=== PATIENT | male | born 1960 ===

== ENCOUNTER 2016-11-21 08:24 | Day surgery (SDC) | payer MEDICAID ==
[2016-11-02 13:50] VITALS: BMI 31.3
[2016-11-21] MEDS ORDERED: ceFAZolin IV 1 gm in Dextrose 0 GM/0 ML BAG IVPB ONE (11:02)
[2016-11-21] MEDS ORDERED: Bupivacaine HCl 0.25% PF (10 ml) Inj ONE (11:02)
[2016-11-21] MEDS ORDERED: Lidocaine 1% Inj (20ml) ONE (11:02)
[2016-11-21] MEDS ORDERED: Lactated Ringer's 1,000 ML IV ONE ×2 (12:00→14:30)
[2016-11-21] MEDS ORDERED: Lidocaine Hydrochloride 5 ML INJ ONE (12:02)
[2016-11-21] MEDS ORDERED: Propofol 10 mg/ml Inj (20 ML) ONE (12:02)
[2016-11-21] MEDS ORDERED: Midazolam 2 MG/2 ML VIAL ONE (12:12)
[2016-11-21] MEDS ORDERED: ceFAZolin IV 1 gm in Dextrose 1 GM/50 ML BAG IVPB ONE (12:23)
[2016-11-21] MEDS ORDERED: Oxycodone/Acetaminophen 5/325 mg Tab PO PRN (12:43)
[2016-11-21] MEDS ORDERED: HYDROmorphone 0.5 mg/0.5 ml ISec IVP PRN (12:47)
[2016-11-21 14:49] VITALS: PULSE 63; RESP 18; O2SAT 98
[2016-11-21 15:36] VITALS: BP 125/66; TEMP 97.8
--- NOTE | 2016-11-22 00:10 | OP ---
PROCEDURE DATE: 11/21/2016 PREOPERATIVE DIAGNOSIS: Mass in the left leg. POSTOPERATIVE DIAGNOSIS: Mass in the left leg. PROCEDURE PERFORMED: Wide deep excision of deep soft tissue mass in the left leg with adjacent tissue transverse closure. SURGEON: Jose Miguel Corrales MD ANESTHESIA: General. ESTIMATED BLOOD LOSS: 30 mL. POSTOPERATIVE CONDITION: Stable. INDICATIONS FOR SURGERY: This is a 56-year-old male with chronic edema of the left leg who has developed a deep mass within the leg measuring 5 cm and now undergoing wide deep excision. DESCRIPTION OF PROCEDURE: The patient was taken to the operating room, IV sedation was administered and the left leg was prepped and draped. Local anesthesia was administered. A generous elliptical incision was made surrounding the mass, dissected free into the fascial layer and completely removed. Bleeding was controlled using a Bovie. Large blood vessel was repaired and wound was irrigated with saline. Generous tissue flaps were raised using the Bovie to greater than 30 sq cm. Adjacent tissue transverse closure was performed using multiple layers of Monocryl, subcuticular Monocryl, and skin clips. The patient tolerated the procedure well and returned to the recovery room in stable condition. Jose Miguel Corralse MD
== END 2016-11-21 15:00 | disposition home or self-care (01) ==
LOC: C.SDS 08:24
PROVIDERS: ATTEND Surgery
DX: R22.9 Localized swelling, mass and lump, unspecified (principal)
CPT/HCPCS: 14301; 88305; J0690; J1170; J1885; J2250; J2405; J2704; J2765; J3010; J7120

== ENCOUNTER 2017-03-09 13:38 | Emergency (ER) | payer MEDICAID ==
[2017-03-09 13:39] VITALS: BMI 31.3
[2017-03-09 13:47] VITALS: PULSE 78; TEMP 97.9; O2SAT 99
--- NOTE | 2017-03-09 14:23 | RAD ---
HISTORY: SOB, wheezing COMPARISON: 12/10/2014 FINDINGS: LUNGS: No active pulmonary disease. PLEURA: No significant pleural effusion identified, no pneumothorax apparent. CARDIOVASCULAR: Normal. OSSEOUS STRUCTURES: No significant abnormalities. VISUALIZED UPPER ABDOMEN: Normal. OTHER FINDINGS: None. IMPRESSION: No active disease.
[2017-03-09] MEDS ORDERED: Albuterol-Ipratrop 3 mg / 0.5 (3 ml) UD ONE (14:25)
[2017-03-09] MEDS: Albuterol-Ipratrop 3 mg / 0.5 (3 ml) UD IH SCH ×2 (14:25→14:50)
--- NOTE | 2017-03-09 16:10 | C.PDOC ---
History Of Present Illness 57 y/o male hx Asthma presents to the ED c/o wheezing and SOB after waking up this morning. The patient denies chest pain, fever, headaches, dizziness, vomiting, and diarrhea. Chief Complaint (Nursing): Shortness Of Breath Past Medical History Reviewed: Historical Data, Nursing Documentation, Vital Signs Vital Signs: Last Vital Signs Temp 97.9 F 03/09/17 13:45 Pulse 78 03/09/17 13:45 Resp 18 03/09/17 14:38 BP 98/79 L 03/09/17 13:45 Pulse Ox 99 03/09/17 16:21 - Medical History PMH: Asthma Denies: Chronic Kidney Disease Surgical History: No Surg Hx - [facility] Procedures DX ULTRASOUND-HEART (07/13/12) Family History: States: No Known Family Hx - Social History Hx Tobacco Use: Yes Hx Alcohol Use: No Hx Substance Use: No - Immunization History Hx Tetanus Toxoid Vaccination: Yes Hx Influenza Vaccination: No (2015) Hx Pneumococcal Vaccination: No Review Of Systems Except As Marked, All Systems Reviewed And Found Negative. Constitutional: Negative for: Fever, Chills Cardiovascular: Negative for: Chest Pain Respiratory: Positive for: Shortness of Breath, Wheezing. Negative for: Cough Gastrointestinal: Negative for: Nausea, Vomiting Skin: Negative for: Rash Physical Exam - Physical Exam Appears: Non-toxic, No Acute Distress Skin: Warm, Dry Head: Atraumatic, Normacephalic Eye(s): bilateral: Normal Inspection Oral Mucosa: Moist Neck: Normal ROM, Supple Chest: Symmetrical Cardiovascular: Rhythm Regular Respiratory: No Accessory Muscle Use, No Rales, No Rhonchi, Wheezing ( bilaterally significant ) Gastrointestinal/Abdominal: Soft, No Tenderness, No Guarding, No Rebound Back: Normal Inspection Extremity: Normal ROM, Capillary Refill (2<sec.) Neurological/Psych: Oriented x3, Normal Speech, Normal Cognition ED Course And Treatment ECG Rhythm: Sinus Rhythm (NSR with rate of 74bpm, LVH) O2 Sat by Pulse Oximetry: 99 (RA) Progress Note: Given: one Duoneb and 2 more after, and one Solumedrol 125mg IV. Chest X- ray was unremarkable. Upon reevaluation the patient is feeling better and no longer wheezes and is stable. The patient is advised to have a 1- 2 day follow up with his PMD for further evalutaion. Medical Decision Making Medical Decision Making: HISTORY: SOB, wheezing COMPARISON: 12/10/2014 FINDINGS: LUNGS: No active pulmonary disease. PLEURA: No significant pleural effusion identified, no pneumothorax apparent. CARDIOVASCULAR: Normal. OSSEOUS STRUCTURES: No significant abnormalities. VISUALIZED UPPER ABDOMEN: Normal. OTHER FINDINGS: None. IMPRESSION: No active disease. Disposition - Disposition Disposition: HOME/ ROUTINE Disposition Time: 16:36 Condition: STABLE Additional Instructions: Follow up within 1-2 days. Return to ED if feel worse. Prescriptions: Albuterol 0.083% [Albuterol Sulfate 3 Ml] 3 ml IH .Q4-6H #100 vial Nebulizer [Compact Compressor Nebulizer] 1 dev XX PRN PRN #1 dev PRN Reason: Wheezing Mask, Face [Nebulizer Aerosol Mask Adult] 1 dev XX PRN PRN #1 dev PRN Reason: Wheezing predniSONE [predniSONE Tab] 2 tab PO DAILY #8 tab Albuterol HFA [Ventolin HFA 90 mcg/actuation (8 g)] 1 puff IH .Q4-6H #1 inhaler Instructions: Asthma (ED) Forms: [facility] (Hungarian) - Clinical Impression Clinical Impression: Exacerbation of asthma - PA / DELICATESSEN DEPARTMENT MANAGER / Resident Statement MD/DO has examined the patient and agrees with the treatment plan. - Scribe Statement The provider has reviewed the documentation as recorded by the Scribe Nancy Jenkins
[2017-03-09 16:57] VITALS: BP 110/68; RESP 16
== END 2017-03-09 16:52 | disposition home or self-care (01) ==
LOC: C.ER 13:38
DX: J45.901 Unspecified asthma with (acute) exacerbation (principal); Z87.891 Personal history of nicotine dependence

== ENCOUNTER 2017-04-10 07:18 | Observation (INO) | payer MEDICAID ==
[2017-04-10 07:23] VITALS: BMI 37.5
[2017-04-10] MEDS ORDERED: Albuterol-Ipratrop 3 mg / 0.5 (3 ml) UD ONE ×3 (07:30→11:40)
[2017-04-10] MEDS ORDERED: Albuterol-Ipratrop 3 mg / 0.5 (3 ml) UD INH STA ×3 (07:46→08:59)
[2017-04-10 08:09] LABS: BASO % 0.5 % (0.0-2.0); EOS # 0.1 K/uL (0.0-0.7); EOS % 0.9 % (0.0-4.0); HEMOGLOBIN 13.4 g/dL (12.0-18.0); LYMPH # 2.1 K/uL (1.0-4.3); LYMPH % 26.1 % (20.0-40.0); MEAN CELL VOLUME 87.8 fL (80.0-94.0); MEAN CORPUSCULAR HEMOGLOBIN 30.3 pg (27.0-31.0); MEAN CORPUSCULAR HGB CONC 34.5 g/dL (33.0-37.0); MEAN PLATELET VOLUME 8.2 fL (7.2-11.7); MONO # 0.7 K/uL (0.0-0.8); MONO % 8.2 % (0.0-10.0); NEUT # 5.2 K/uL (1.8-7.0); NEUT % 64.3 % (50.0-75.0); NRBC % 0.1 % (0.0-2.0); RBC 4.42 Mil/uL (4.40-5.90); WHITE BLOOD COUNT 8.1 K/uL (4.8-10.8)
--- NOTE | 2017-04-10 08:10 | RAD ---
Chest x-ray single frontal view History: Shortness of breath. Comparison: 03/09/2017 Findings: Mild venous congestion. Right hilar prominence. Mild patchy increased markings at the left lung base. Tortuous aorta. Heart size within normal limits. Degenerative changes in the spine and shoulders. Impression: Mild venous congestion. Right hilar prominence. Mild patchy increased markings at the left lung base. Tortuous aorta.
[2017-04-10 08:23] LABS: ALB/GLOB RATIO 0.9 (1.0-2.1); ALBUMIN 3.9 g/dL (3.5-5.0); ALT/SGPT 26 U/L (21-72); AST/SGOT 23 U/L (17-59); BLOOD UREA NITROGEN 15 mg/dL (9-20); CALCIUM 8.5 mg/dl (8.6-10.4); GFR AFRICAN-AMERICAN > 60; GFR NON-AFRICAN AMERICAN > 60
[2017-04-10 08:34] LABS: B-TYPE NATRIURETIC PEPTIDE 245 pg/mL (0-900)
--- NOTE | 2017-04-10 09:26 | C.PDOC ---
History Of Present Illness 57 y/o male with history of Asthma, endocarditis and Hepatitis C presents to ED with complaints of sob and chest pain since last night. Chest pain is sharp in nature and midsternal. Aggravated by coughing. (+) subjective fever (+) sweating. Pt states he used albuterol treatments x5 at home with no improvement which prompted visit to ED. (+) smoker. Patient denies chills, leg swelling, abdominal pain, n/v or any other complaints at this time. No known sick contacts Time Seen by Provider: 04/10/17 07:27 Chief Complaint (Nursing): Shortness Of Breath History Per: Patient History/Exam Limitations: no limitations Onset/Duration Of Symptoms: Days Current Symptoms Are (Timing): Still Present Initiating Event: Upper Respiratory Illness Past Medical History Reviewed: Historical Data, Nursing Documentation, Vital Signs Vital Signs: Last Vital Signs Temp 99.5 F 04/10/17 07:23 Pulse 82 04/10/17 16:40 Resp 20 04/10/17 16:40 BP 131/53 L 04/10/17 16:40 Pulse Ox 96 04/10/17 16:59 - Medical History PMH: Asthma Surgical History: No Surg Hx - [facility] Procedures DX ULTRASOUND-HEART (07/13/12) Family History: States: No Known Family Hx - Social History Hx Tobacco Use: Yes Hx Alcohol Use: No Hx Substance Use: No - Immunization History Hx Tetanus Toxoid Vaccination: Yes Hx Influenza Vaccination: No (2016) Hx Pneumococcal Vaccination: No Review Of Systems Constitutional: Negative for: Fever, Chills Cardiovascular: Positive for: Chest Pain Respiratory: Positive for: Shortness of Breath Gastrointestinal: Negative for: Nausea, Vomiting Skin: Negative for: Rash Physical Exam - Physical Exam Appears: Non-toxic, No Acute Distress Skin: Warm, Dry, No Rash Head: Atraumatic, Normacephalic Eye(s): bilateral: Normal Inspection, EOMI Nose: Normal Oral Mucosa: Moist Neck: Normal ROM, Supple Chest: Symmetrical Cardiovascular: Rhythm Regular Respiratory: No Accessory Muscle Use, No Rales, No Rhonchi, Wheezing (Bilateral) Gastrointestinal/Abdominal: Soft, No Tenderness, No Guarding, No Rebound Extremity: No Pedal Edema, Capillary Refill (<2 seconds) Neurological/Psych: Oriented x3 ED Course And Treatment - Laboratory Results Result Diagrams: 04/10/17 08:05 04/10/17 08:05 ECG: Interpreted By Me, Viewed By Me ECG Rhythm: Sinus Rhythm Rate From EC (BPM) O2 Sat by Pulse Oximetry: 96 (RA) - Other Rad cxr X-Ray: Viewed By Me, Read By Radiologist Interpretation: Chest x-ray single frontal view. History: Shortness of breath. Comparison: 03/09/2017. Findings: Mild venous congestion. Right hilar prominence. Mild patchy increased markings at the left lung base. Tortuous aorta. Heart size within normal limits. Degenerative changes in the spine and shoulders. Impression: Mild venous congestion. Right hilar prominence. Mild patchy increased markings at the left lung base. Tortuous aorta. Progress Note: After x3 Neb treatment wheezing persisted, Patient will be admited under Services Disposition - Disposition Disposition: HOSPITALIZED Disposition Time: 15:00 Condition: STABLE - Clinical Impression Clinical Impression: Chest pain, Exacerbation of asthma - PA / BUTCHER HEAD / Resident Statement MD/DO has reviewed & agrees with the documentation as recorded. - Scribe Statement The provider has reviewed the documentation as recorded by the Scribjose alejandro Sparks All medical record entries made by the Bentonibjose alejandro were at my direction and personally dictated by me. I have reviewed the chart and agree that the record accurately reflects my personal performance of the history, physical exam, medical decision making, and the department course for this patient. I have also personally directed, reviewed, and agree with the discharge instructions and disposition.
[2017-04-10 09:30] VITALS: RESP 20
--- NOTE | 2017-04-10 10:54 | CP.PCM.HP ---
History of Present Illness - History of Present Illness History of Present Illness: PMD: Dr. Holden CC: short of breath HPI: 57 year old male with past medical history of asthma, left leg cellulitis, cirrhosis, hepatitis C who presents to the ED for shortness of breath. He states that is started yesterday at around 3pm while he was resting. He states he used his nebulizer treatment about 5x yesterday with short relief. He states what prompted him to come to the ED today was that today he had some chest tightness at around 5AM today. He states it is located in the middle of his chest and does not radiate. He states the pain is a 6/10 and nothing makes it better or worse. He states he also has a dry cough, feels sweaty, and has been congested and sneezing. He denies nausea, vomiting, diarrhea or constipation. Past Medical History: Asthma, left leg cellulitis, cirrhosis - diagnosed 2001, hepatitis C diagnosed 2001 Past Surgical History: Denies Family History: Mom - passed at 71yo due to diabetes, Dad passed at age 49 due to [place] Medications: Ventolin, Nebulizer Allergies: NKDA Social History: Lives with stepfather; incarcerated 1 year released 10/2016; Smokes about 6 cigerretes per day for 20 years; Denies drinking; Previously used heroin IV - currently has not used for about 19 months Present on Admission - Present on Admission Any Indicators Present on Admission: No Review of Systems - Constitutional Constitutional: absent: Headache - EENT Eyes: absent: Blurred Vision - Cardiovascular Cardiovascular: Chest Pain, Dyspnea, Lightheadedness. absent: Palpitations - Respiratory Respiratory: Cough, Dyspnea, Pain with Coughing - Gastrointestinal Gastrointestinal: absent: Constipation, Diarrhea, Nausea, Vomiting - Genitourinary Genitourinary: absent: Dysuria - Neurological Neurological: absent: Dizziness, Headaches, Weakness Past Patient History - Past Medical History & Family History Past Medical History?: Yes - Past Social History Smoking Status: Light Smoker < 10 Cigarettes Daily - CARDIAC Hx Cardiac Disorders: Yes (SEE COMMENT) Other/Comment: Endocarditis 2001 - PULMONARY Hx Asthma: Yes - NEUROLOGICAL Hx Neurological Disorder: No - HEENT Hx HEENT Problems: No - RENAL Hx Chronic Kidney Disease: No - ENDOCRINE/METABOLIC Hx Endocrine Disorders: No - HEMATOLOGICAL/ONCOLOGICAL Hx Blood Disorders: Yes Hx Hepatitis C: Yes (Finished Zepatier) - INTEGUMENTARY Hx Dermatological Problems: No - MUSCULOSKELETAL/RHEUMATOLOGICAL Hx Musculoskeletal Disorders: No - GASTROINTESTINAL Hx Gastrointestinal Disorders: No - GENITOURINARY/GYNECOLOGICAL Hx Genitourinary Disorders: No - PSYCHIATRIC Hx Substance Use: No - SURGICAL HISTORY Hx Surgeries: No - ANESTHESIA Hx Anesthesia: No Meds Allergies/Adverse Reactions: Allergies Allergy/AdvReac Type Severity Reaction Status Date / Time No Known Allergies Allergy Verified 04/10/17 07:22 Physical Exam - Constitutional Appears: No Acute Distress - Head Exam Head Exam: ATRAUMATIC, NORMAL INSPECTION - Eye Exam Eye Exam: EOMI, Normal appearance - ENT Exam ENT Exam: Mucous Membranes Moist - Respiratory Exam Respiratory Exam: Wheezes, NORMAL BREATHING PATTERN - Cardiovascular Exam Cardiovascular Exam: REGULAR RHYTHM, +S1, +S2 - GI/Abdominal Exam GI & Abdominal Exam: Normal Bowel Sounds, Soft. absent: Tenderness Additional comments: Obese - Extremities Exam Extremities exam: Positive for: pedal edema (left lower extremity ). Negative for: tenderness - Neurological Exam Neurological exam: Alert, Oriented x3 - Psychiatric Exam Psychiatric exam: Normal Affect, Normal Mood - Skin Skin Exam: Dry, Intact, Normal Color, Warm Results - Vital Signs Recent Vital Signs: Last Vital Signs Temp 99.5 F 04/10/17 07:23 Pulse 100 H 04/10/17 09:29 Resp 20 04/10/17 09:29 BP 117/44 L 04/10/17 09:29 Pulse Ox 96 04/10/17 10:47 - Labs Result Diagrams: 04/10/17 08:05 04/10/17 08:05 Labs: Laboratory Results - last 24 hr 04/10/17 04/10/17 08:05 08:05 WBC 8.1 RBC 4.42 Hgb 13.4 Hct 38.9 MCV 87.8 MCH 30.3 MCHC 34.5 RDW 13.0 Plt Count 197 MPV 8.2 Neut % (Auto) 64.3 Lymph % (Auto) 26.1 [place] % (Auto) 8.2 Eos % (Auto) 0.9 Baso % (Auto) 0.5 Neut # 5.2 Lymph # 2.1 [place] # 0.7 Eos # 0.1 Baso # 0.0 Sodium 135 Potassium 3.8 Chloride 103 Carbon Dioxide 25 Anion Gap 11 BUN 15 Creatinine 0.8 Est GFR ( Amer) > 60 Est GFR (Non-Af Amer) > 60 Random Glucose 107 Calcium 8.5 L Total Bilirubin 0.6 AST 23 ALT 26 Alkaline Phosphatase 77 Total Creatine Kinase 51 L CK-MB (Mass) 0.40 Troponin I 0.0180 NT-Pro-B Natriuret Pep 245 Total Protein 8.2 Albumin 3.9 Globulin 4.3 H Albumin/Globulin Ratio 0.9 L Assessment & Plan - Assessment and Plan (Free Text) Assessment: 1.) Asthma Exacerbation - Chest Xray: Mild venous congestion. Right hilar prominence. Mild patchy increased markings at the left lung base. Tortuous aorta. - Pulm consult: Dr. Pack --> help appreciated - Medications: * Duonebs q4h emeka * Sylvia-Medrol 10mg q8h * Advair * Rocephin 1gm q12h * Azithromycin 500mg po daily * Mucinex 2.) Chest pain - EKG: NSR - Troponin x2 negative - f/u trop 3.) History of Hepatitis C 4.) History of Cirrhosis 5.) History of Left Leg Cellulitis - venous doppler: Negative 6.) History of Heroin Use - Patient states he has been clean for 19 months - UDS Negative 7.) History of Tobacco Use - Discussed the importance of smoking cessation - Nicotine patch 8.) Prophylaxis - Pepcid 20mg po daily - Heparin SC - Ambulates Case Discussed with Dr. Jose Burgess PGY-1
[2017-04-10] MEDS: Albuterol-Ipratrop 3 mg / 0.5 (3 ml) UD INH SCH (12:36)
[2017-04-10] MEDS ORDERED: MethylPREDNISolone 40 mg Vial ONE (13:24)
[2017-04-10] MEDS: MethylPREDNISolone 40 mg Vial IVP SCH ×3 (13:29→21:04)
[2017-04-10] MEDS ORDERED: Azithromycin 500mg/250ML NS 500 MG/250 ML BAG IVPB SCH (13:30)
[2017-04-10] MEDS ORDERED: Piperacill/Tazo 3.375gm in Dex 3.375 GM/50 ML BAG IVPB SCH ×2 (13:30→14:15)
[2017-04-10] MEDS ORDERED: Piperacillin/Tazobact 3.375 GM in Sodium Chloride 0.9% 100 ML IVPB SCH (14:00)
[2017-04-10] MEDS ORDERED: Piperacillin/Tazobact 3.375 gm 100 ML IVPB SCH (14:00)
[2017-04-10] MEDS: guaiFENesin 600 mg ER Tab PO SCH ×2 (14:12→17:46)
[2017-04-10 15:12] LABS: BARBITURATES, UR NEGATIVE (NEGATIVE); BENZODIAZEPINES, UR NEGATIVE (NEGATIVE); OPIATES, UR NEGATIVE (NEGATIVE); PHENCYCLIDINE, UR NEGATIVE (NEGATIVE)
--- NOTE | 2017-04-10 15:21 | VASCLAB ---
PROCEDURE: Lower Extremity Venous Duplex Exam. HISTORY: hx of cellulitis, sob PRIORS: None. TECHNIQUE: Bilateral common femoral, femoral, popliteal and posterior tibial, peroneal and great saphenous veins were evaluated. Flow was assessed with color Doppler, compressibility, assessment of phasic flow and augmentation response. Report prepared by Anatoly Hughes, [place], RVT FINDINGS: RIGHT: 1. Common Femoral Vein: 1.1. Compressibility - Fully compressible: Thrombus - None : Flow - Phasic: Augmentation -Normal: Reflux - None. 2. Femoral Vein: 2.1. Compressibility - Fully compressible: Thrombus - None : Flow - Phasic: Augmentation -Normal: Reflux - None. 3. Popliteal Vein: 3.1. Compressibility - Fully compressible: Thrombus - None : Flow - Phasic: Augmentation -Normal: Reflux - None. 4. Posterior Tibial Vein: 4.1. Compressibility - Fully compressible: Thrombus - None: Flow - Phasic: Augmentation -Normal: Reflux - None. 5. Peroneal Vein: 5.1. Compressibility - Fully compressible: Thrombus - None: Flow - Phasic: Augmentation -Normal: Reflux - None. 6. Great Saphenous Vein: 6.1. Compressibility - Fully compressible: Thrombus - None: Flow - Phasic: Augmentation - Normal: Reflux - None. LEFT: 1. Common Femoral Vein: 1.1. Compressibility - Fully compressible: Thrombus - None: Flow - Phasic: Augmentation -Normal: Reflux - None. 2. Femoral Vein: 2.1. Compressibility - Fully compressible: Thrombus - None: Flow - Phasic: Augmentation -Normal: Reflux - None. 3. Popliteal Vein: 3.1. Compressibility - Fully compressible: Thrombus - None : Flow - Phasic: Augmentation -Normal: Reflux - None. 4. Posterior Tibial Vein: 4.1. Compressibility - Fully compressible: Thrombus - None: Flow - Phasic: Augmentation -Normal: Reflux - None. 5. Peroneal Vein: 5.1. Compressibility - Fully compressible: Thrombus - None: Flow - Phasic: Augmentation -Normal: Reflux - None. 6. Great Saphenous Vein: 6.1. Compressibility - Fully compressible: Thrombus - None: Flow - Phasic: Augmentation - Normal: Reflux - None. OTHER FINDINGS: Right: None significant. Left: None significant. IMPRESSION: Right: No evidence of deep or superficial vein thrombosis of the right lower extremity. Normal valve function noted of the right side. Left: No evidence of deep or superficial vein thrombosis of the left lower extremity. Normal valve function noted of the left side.
--- NOTE | 2017-04-10 17:27 | CP.PCM.CON ---
History of Present Illness - History of Present Illness History of Present Illness: 57 y/o Male PMHx of asthma, Hep C, and half pack a day smoker presents with one day history of shortness of breath and chest pain. Both started yesterday evening while he was laying in bed. The chest pain is described sharp and centrally located on his chest, and is worse with coughing and deep breathing. It is unchanged with body position and is non-exertional. He reports subjective fevers and cough but no chills, nausea or vomiting. The patient states that he administered 5 nebulizer treatments at home which helped his SOB but his chest pain persisted so he came to the hospital. Denies recent travel and sick contacts. Review of Systems - Review of Systems All systems: reviewed and no additional remarkable complaints except (shortness of breath, cough) Past Patient History - Past Medical History & Family History Past Medical History?: Yes - Past Social History Smoking Status: Light Smoker < 10 Cigarettes Daily - CARDIAC Hx Cardiac Disorders: Yes (SEE COMMENT) Other/Comment: Endocarditis 2002 - PULMONARY Hx Asthma: Yes - NEUROLOGICAL Hx Neurological Disorder: No - HEENT Hx HEENT Problems: No - RENAL Hx Chronic Kidney Disease: No - ENDOCRINE/METABOLIC Hx Endocrine Disorders: No - HEMATOLOGICAL/ONCOLOGICAL Hx Blood Disorders: Yes Hx Hepatitis C: Yes (Finished Zepatier) - INTEGUMENTARY Hx Dermatological Problems: No - MUSCULOSKELETAL/RHEUMATOLOGICAL Hx Musculoskeletal Disorders: No - GASTROINTESTINAL Hx Gastrointestinal Disorders: No - GENITOURINARY/GYNECOLOGICAL Hx Genitourinary Disorders: No - PSYCHIATRIC Hx Substance Use: No - SURGICAL HISTORY Hx Surgeries: No - ANESTHESIA Hx Anesthesia: No Meds Allergies/Adverse Reactions: Allergies Allergy/AdvReac Type Severity Reaction Status Date / Time No Known Allergies Allergy Verified 04/10/17 07:22 - Medications Medications: Current Medications Albuterol/Ipratropium (Duoneb 3 Mg/0.5 Mg (3 Ml) Ud) 3 ml INH RQ4 [facility] Last Admin: 04/10/17 12:36 Dose: 3 ml Azithromycin (Zithromax) 500 mg PO DAILY@1400 [facility] Last Admin: 04/10/17 14:13 Dose: 500 mg Famotidine (Pepcid) 20 mg PO DAILY [facility] Last Admin: 04/10/17 13:29 Dose: 20 mg Guaifenesin (Mucinex La) 600 mg PO BID [facility] Last Admin: 04/10/17 14:12 Dose: 600 mg Heparin Sodium (Porcine) (Heparin) 5,000 units SC Q8 [facility] Last Admin: 04/10/17 13:30 Dose: 5,000 units Piperacillin Sod/Tazobactam Sod (Zosyn 3.375 Gm Iv Premix) 3.375 gm in 50 mls @ 200 mls/hr IVPB Q6H [facility] Last Admin: 04/10/17 14:13 Dose: 200 mls/hr Methylprednisolone (Solu-Medrol) 40 mg IVP Q8 [facility] Last Admin: 04/10/17 14:12 Dose: Not Given Fluticasone/Salmeterol (Advair Diskus 500/50) 1 puff INH RQ12 [facility] Physical Exam - Head Exam Head Exam: ATRAUMATIC, NORMOCEPHALIC - Eye Exam Eye Exam: Normal appearance - ENT Exam ENT Exam: Mucous Membranes Moist - Neck Exam Neck exam: Positive for: Normal Inspection - Respiratory Exam Respiratory Exam: Rhonchi, Wheezes - Cardiovascular Exam Cardiovascular Exam: REGULAR RHYTHM - GI/Abdominal Exam GI & Abdominal Exam: Normal Bowel Sounds Results - Vital Signs Recent Vital Signs: Last Vital Signs Temp 99.5 F 04/10/17 07:23 Pulse 82 04/10/17 16:40 Resp 20 04/10/17 16:40 BP 131/53 L 04/10/17 16:40 Pulse Ox 96 04/10/17 16:59 - Labs Result Diagrams: 04/10/17 08:05 04/10/17 08:05 Labs: Laboratory Results - last 24 hr 04/10/17 04/10/17 04/10/17 08:05 08:05 14:39 WBC 8.1 RBC 4.42 Hgb 13.4 Hct 38.9 MCV 87.8 MCH 30.3 MCHC 34.5 RDW 13.0 Plt Count 197 MPV 8.2 Neut % (Auto) 64.3 Lymph % (Auto) 26.1 [place] % (Auto) 8.2 Eos % (Auto) 0.9 Baso % (Auto) 0.5 Neut # 5.2 Lymph # 2.1 [place] # 0.7 Eos # 0.1 Baso # 0.0 Sodium 135 Potassium 3.8 Chloride 103 Carbon Dioxide 25 Anion Gap 11 BUN 15 Creatinine 0.8 Est GFR ( Amer) > 60 Est GFR (Non-Af Amer) > 60 Random Glucose 107 Calcium 8.5 L Total Bilirubin 0.6 AST 23 ALT 26 Alkaline Phosphatase 77 Total Creatine Kinase 51 L CK-MB (Mass) 0.40 Troponin I 0.0180 NT-Pro-B Natriuret Pep 245 Total Protein 8.2 Albumin 3.9 Globulin 4.3 H Albumin/Globulin Ratio 0.9 L Urine Opiates Screen Negative Urine Methadone Screen Negative Ur Barbiturates Screen Negative Ur Phencyclidine Scrn Negative Ur Amphetamines Screen Negative U Benzodiazepines Scrn Negative U Oth Cocaine Metabols Negative U Cannabinoids Screen Negative 04/10/17 14:44 WBC RBC Hgb Hct MCV MCH MCHC RDW Plt Count MPV Neut % (Auto) Lymph % (Auto) [place] % (Auto) Eos % (Auto) Baso % (Auto) Neut # Lymph # [place] # Eos # Baso # Sodium Potassium Chloride Carbon Dioxide Anion Gap BUN Creatinine Est GFR ( Amer) Est GFR (Non-Af Amer) Random Glucose Calcium Total Bilirubin AST ALT Alkaline Phosphatase Total Creatine Kinase CK-MB (Mass) Troponin I < 0.0120 NT-Pro-B Natriuret Pep Total Protein Albumin Globulin Albumin/Globulin Ratio Urine Opiates Screen Urine Methadone Screen Ur Barbiturates Screen Ur Phencyclidine Scrn Ur Amphetamines Screen U Benzodiazepines Scrn U Oth Cocaine Metabols U Cannabinoids Screen Assessment & Plan (1) Dyspnea Status: Acute Comment: most likely secondary to asthma exacerbation/COPD. Rule out pulmonary emboli because of hypoxemia. Continue nebulizer treatm. IV steroids and antibiotics
[2017-04-10] MEDS ORDERED: Iodixanol 320 MG/ML 100 ML BOTTLE IV ONE (17:56)
[2017-04-10 18:59] LABS: ARTERIAL BLOOD GAS HCO3 21.7 mmol/L (21-28); ARTERIAL BLOOD GAS HEMOGLOBIN 12.8 g/dL (11.7-17.4); ARTERIAL BLOOD GAS O2 SAT 96.5 % (95-98); ARTERIAL BLOOD GAS PCO2 31 mm/Hg (35-45); ARTERIAL BLOOD GAS PH 7.41 (7.35-7.45); ARTERIAL BLOOD GAS PO2 75 mm/Hg (80-100); ARTERIAL BLOOD GAS TCO2 20.6 mmol/L (22-28)
--- NOTE | 2017-04-10 19:30 | CT ---
EXAM: CT Angiography Chest With Intravenous Contrast CLINICAL HISTORY: 57 years old, male; Signs and symptoms; Other: Hypoxia. TECHNIQUE: Axial computed tomographic angiography images of the chest with intravenous contrast using pulmonary embolism protocol. All CT scans at this facility use one or more dose reduction techniques, viz.: automated exposure control; ma/kV adjustment per patient size (including targeted exams where dose is matched to indication; i.e. head); or iterative reconstruction technique. MIP reconstructed images were created and reviewed. Coronal and sagittal reformatted images were created and reviewed. CONTRAST: 100 mL of VISIPAQUE 320 administered intravenously. COMPARISON: No relevant prior studies available. FINDINGS: Limitations: Suboptimal timing of bolus. Pulmonary arteries: No definite pulmonary embolism. Aorta: No aneurysm. No dissection. Lungs: Minimal atelectasis. No consolidation. Pleural space: No significant effusion. No pneumothorax. Heart: No cardiomegaly. No significant pericardial effusion. Bones/joints: Mild degenerative changes of spine. No acute fracture. Soft tissues: Minimal gynecomastia. Lymph nodes: No pathologically enlarged lymph nodes. Gallbladder and bile ducts: Gallstones. Kidneys and ureters: Too small to characterize lesion within RIGHT kidney. Stomach and bowel: Mild to moderately dilated loops of small bowel within upper abdomen. IMPRESSION: 1. No definite CT evidence of pulmonary embolism. 2. Small bowel dilatation, nonspecific. 3. Incidental/non-acute findings are described above.
[2017-04-10] MEDS ORDERED: Fluticasone-Salmeterol 500-50mcg Diskus INH SCH (20:00)
[2017-04-11] MEDS: Albuterol-Ipratrop 3 mg / 0.5 (3 ml) UD INH SCH ×4 (00:31→11:12)
[2017-04-11] MEDS: MethylPREDNISolone 40 mg Vial IVP SCH ×2 (06:10→14:16)
--- NOTE | 2017-04-11 07:15 | CP.PCM.PN ---
Subjective - Date & Time of Evaluation Date of Evaluation: 04/11/17 Time of Evaluation: 07:14 Objective - Vital Signs/Intake and Output Vital Signs (last 24 hours): Temp Pulse Resp BP Pulse Ox 97.7 F 84 20 165/74 H 99 04/10/17 23:50 04/10/17 23:50 04/10/17 23:50 04/10/17 23:50 04/10/17 23:50 - Medications Medications: Current Medications Albuterol/Ipratropium (Duoneb 3 Mg/0.5 Mg (3 Ml) Ud) 3 ml INH RQ4 [facility] Last Admin: 04/11/17 03:14 Dose: Not Given Azithromycin (Zithromax) 500 mg PO DAILY@1400 [facility] Last Admin: 04/10/17 14:13 Dose: 500 mg Famotidine (Pepcid) 20 mg PO DAILY [facility] Last Admin: 04/10/17 13:29 Dose: 20 mg Guaifenesin (Mucinex La) 600 mg PO BID [facility] Last Admin: 04/10/17 17:46 Dose: 600 mg Heparin Sodium (Porcine) (Heparin) 5,000 units SC Q8 [facility] Last Admin: 04/11/17 06:10 Dose: 5,000 units Ceftriaxone Sodium 1 gm/ (Sodium Chloride) 100 mls @ 100 mls/hr IVPB Q12H [facility] Last Admin: 04/11/17 07:08 Dose: 100 mls/hr Methylprednisolone (Solu-Medrol) 40 mg IVP Q8 [facility] Last Admin: 04/11/17 06:10 Dose: 40 mg Nicotine (Nicoderm Cq) 1 patch TD DAILY [facility] Fluticasone/Salmeterol (Advair Diskus 500/50) 1 puff INH RQ12 [facility] - Labs Labs: 04/10/17 08:05 04/10/17 08:05
[2017-04-11 07:27] LABS: BASO % 0.1 % (0.0-2.0); HEMOGLOBIN 13.4 g/dL (12.0-18.0); LYMPH # 2.1 K/uL (1.0-4.3); LYMPH % 22.7 % (20.0-40.0); MEAN CELL VOLUME 87.8 fL (80.0-94.0); MEAN CORPUSCULAR HEMOGLOBIN 30.3 pg (27.0-31.0); MEAN CORPUSCULAR HGB CONC 34.6 g/dL (33.0-37.0); MEAN PLATELET VOLUME 8.9 fL (7.2-11.7); MONO # 0.8 K/uL (0.0-0.8); NEUT # 6.3 K/uL (1.8-7.0); NEUT % 68.2 % (50.0-75.0); NRBC % 0.1 % (0.0-2.0); RBC 4.42 Mil/uL (4.40-5.90); RED CELL DISTRIBUTION WIDTH 13.3 % (11.5-14.5); WHITE BLOOD COUNT 9.3 K/uL (4.8-10.8)
[2017-04-11 07:53] LABS: ALB/GLOB RATIO 0.9 (1.0-2.1); ALT/SGPT 16 U/L (21-72); AST/SGOT 23 U/L (17-59); BLOOD UREA NITROGEN 28 mg/dL (9-20); CALCIUM 8.6 mg/dl (8.6-10.4); GFR AFRICAN-AMERICAN > 60; GFR NON-AFRICAN AMERICAN > 60; MAGNESIUM 1.9 mg/dL (1.6-2.3)
[2017-04-11] MEDS: guaiFENesin 600 mg ER Tab PO SCH (10:47)
--- NOTE | 2017-04-11 13:40 | CP.PCM.DIS ---
Provider - Provider Date of Admission: 04/10/17 10:01 Attending physician: Chase Garcia Jr, MD Primary care physician: Dr. Holden Consults: Pulmonology: Dr. Pack Time Spent in preparation of Discharge (in minutes): 45 Hospital Course - Lab Results Lab Results: Most Recent Lab Values WBC 9.3 K/uL (4.8-10.8) 04/11/17 07:11 RBC 4.42 Mil/uL (4.40-5.90) 04/11/17 07:11 Hgb 13.4 g/dL (12.0-18.0) 04/11/17 07:11 Hct 38.8 % (35.0-51.0) 04/11/17 07:11 MCV 87.8 fL (80.0-94.0) 04/11/17 07:11 MCH 30.3 pg (27.0-31.0) 04/11/17 07:11 MCHC 34.6 g/dL (33.0-37.0) 04/11/17 07:11 RDW 13.3 % (11.5-14.5) 04/11/17 07:11 Plt Count 213 K/uL (130-400) 04/11/17 07:11 MPV 8.9 fL (7.2-11.7) 04/11/17 07:11 Neut % (Auto) 68.2 % (50.0-75.0) 04/11/17 07:11 Lymph % (Auto) 22.7 % (20.0-40.0) 04/11/17 07:11 Wright % (Auto) 9.0 % (0.0-10.0) 04/11/17 07:11 Eos % (Auto) 0.0 % (0.0-4.0) 04/11/17 07:11 Baso % (Auto) 0.1 % (0.0-2.0) 04/11/17 07:11 Neut # 6.3 K/uL (1.8-7.0) 04/11/17 07:11 Lymph # 2.1 K/uL (1.0-4.3) 04/11/17 07:11 Wright # 0.8 K/uL (0.0-0.8) 04/11/17 07:11 Eos # 0.0 K/uL (0.0-0.7) 04/11/17 07:11 Baso # 0.0 K/uL (0.0-0.2) 04/11/17 07:11 Puncture Site Rra 04/10/17 18:55 pCO2 31 mm/Hg (35-45) L 04/10/17 18:55 pO2 75 mm/Hg (80-100) L 04/10/17 18:55 HCO3 21.7 mmol/L (21-28) 04/10/17 18:55 ABG pH 7.41 (7.35-7.45) 04/10/17 18:55 ABG Total CO2 20.6 mmol/L (22-28) L 04/10/17 18:55 ABG O2 Saturation 96.5 % (95-98) 04/10/17 18:55 ABG Base Excess -4.1 mmol/L (-2.0-3.0) L 04/10/17 18:55 ABG Hemoglobin 12.8 g/dL (11.7-17.4) 04/10/17 18:55 ABG Carboxyhemoglobin 1.0 % (0.5-1.5) 04/10/17 18:55 POC ABG HHb (Measured) 3.4 % (0.0-5.0) 04/10/17 18:55 ABG Methemoglobin 1.1 % (0.0-3.0) 04/10/17 18:55 Henry Test Rrapos 04/10/17 18:55 A-a O2 Difference 36.0 mm/Hg 04/10/17 18:55 Respiratory Index 0.5 04/10/17 18:55 Hgb O2 Saturation 94.5 % (95.0-98.0) L 04/10/17 18:55 FiO2 21.0 % 04/10/17 18:55 Sodium 136 mmol/L (132-148) 04/11/17 07:11 Potassium 4.0 mmol/L (3.6-5.2) 04/11/17 07:11 Chloride 105 mmol/L (98-107) 04/11/17 07:11 Carbon Dioxide 21 mmol/L (22-30) L 04/11/17 07:11 Anion Gap 15 (10-20) 04/11/17 07:11 BUN 28 mg/dL (9-20) H 04/11/17 07:11 Creatinine 0.9 mg/dL (0.8-1.5) 04/11/17 07:11 Est GFR ( Amer) > 60 04/11/17 07:11 Est GFR (Non-Af Amer) > 60 04/11/17 07:11 Random Glucose 138 mg/dL (75-110) H 04/11/17 07:11 Calcium 8.6 mg/dl (8.6-10.4) 04/11/17 07:11 Phosphorus 2.9 mg/dL (2.5-4.5) 04/11/17 07:11 Magnesium 1.9 mg/dL (1.6-2.3) 04/11/17 07:11 Total Bilirubin 0.4 mg/dL (0.2-1.3) 04/11/17 07:11 AST 23 U/L (17-59) 04/11/17 07:11 ALT 16 U/L (21-72) L D 04/11/17 07:11 Alkaline Phosphatase 92 U/L (38-126) 04/11/17 07:11 Total Creatine Kinase 51 U/L (55-170) L 04/10/17 08:05 CK-MB (Mass) 0.40 ng/mL (0.0-3.38) 04/10/17 08:05 Troponin I < 0.0120 ng/mL (0.00-0.120) 04/10/17 23:08 NT-Pro-B Natriuret Pep 245 pg/mL (0-900) 04/10/17 08:05 Total Protein 8.3 g/dL (6.3-8.3) 04/11/17 07:11 Albumin 4.0 g/dL (3.5-5.0) 04/11/17 07:11 Globulin 4.3 gm/dL (2.2-3.9) H 04/11/17 07:11 Albumin/Globulin Ratio 0.9 (1.0-2.1) L 04/11/17 07:11 Urine Opiates Screen Negative (NEGATIVE) 04/10/17 14:39 Urine Methadone Screen Negative (NEGATIVE) 04/10/17 14:39 Ur Barbiturates Screen Negative (NEGATIVE) 04/10/17 14:39 Ur Phencyclidine Scrn Negative (NEGATIVE) 04/10/17 14:39 Ur Amphetamines Screen Negative (NEGATIVE) 04/10/17 14:39 U Benzodiazepines Scrn Negative (NEGATIVE) 04/10/17 14:39 U Oth Cocaine Metabols Negative (NEGATIVE) 04/10/17 14:39 U Cannabinoids Screen Negative (NEGATIVE) 04/10/17 14:39 - Hospital Course Hospital Course: CC: short of breath HPI: 57 year old male with past medical history of asthma, left leg cellulitis, cirrhosis, hepatitis C who presents to the ED for shortness of breath. He states that is started yesterday at around 3pm while he was resting. He states he used his nebulizer treatment about 5x yesterday with short relief. He states what prompted him to come to the ED today was that today he had some chest tightness at around 5AM today. He states it is located in the middle of his chest and does not radiate. He states the pain is a 6/10 and nothing makes it better or worse. He states he also has a dry cough, feels sweaty, and has been congested and sneezing. He denies nausea, vomiting, diarrhea or constipation. PMD: Dr. Holden Past Medical History: Asthma, left leg cellulitis, cirrhosis - diagnosed 2001, hepatitis C diagnosed 2001 Past Surgical History: Denies Family History: Mom - passed at 71yo due to diabetes, Dad passed at age 49 due to IA Medications: Ventolin, Nebulizer Allergies: NKDA Social History: Lives with stepfather; incarcerated 1 year released 10/2016; Smokes about 6 cigarettes per day for 20 years; Denies drinking; Previously used heroin IV - currently has not used for about 19 months Hospital course: Patient was admitted on 04/10/17 for asthma exacerbation. In the ED, labs were drawn, imaging taken, and medications were given (nebulizer treatment, aspirin, solumedrol). Pulmonology, Dr. Pack, was consulted. Chest xray showed mild venous congestion; right hilar prominence; mild patchy increased markings at the left lung base; tortuous aorta. Patient was started nebulizer treatments, solu-medrol, advair diskus, rocephin, azithromycin, and mucinex. Patient complained of chest pain at admission; while examining the patient today, he reported the pain was while he coughed and had resolved while in the ED. EKG showed normal sinus rhythm, and troponins were negative time three. Patient has a history of left leg cellulitis- venous dopplers were ordered and showed no DVT. Patient was seen and examined today and reports feeling better and no longer short of breath. Patient is stable for discharge to home with new medication- Advair Diskus 500/50. Patient must see PMD within 1 week of discharge for continued outpatient management. This is a brief a summary of the hospital course. Please see EMR for more details. Discharge Exam - Head Exam Head Exam: ATRAUMATIC, NORMAL INSPECTION - Eye Exam Eye Exam: EOMI, Normal appearance - ENT Exam ENT Exam: Mucous Membranes Moist - Respiratory Exam Respiratory Exam: Wheezes (improved), NORMAL BREATHING PATTERN. absent: Rales, Rhonchi, Respiratory Distress - Cardiovascular Exam Cardiovascular Exam: REGULAR RHYTHM, +S1, +S2 - GI/Abdominal Exam GI & Abdominal Exam: Normal Bowel Sounds, Soft, Unremarkable. absent: Distended , Firm, Tenderness - Extremities Exam Extremities exam: pedal edema (left leg; hx of cellulitis) - Neurological Exam Neurological exam: Alert, Oriented x3 - Psychiatric Exam Psychiatric exam: Normal Affect, Normal Mood - Skin Skin Exam: Dry, Intact, Normal Color, Warm Discharge Plan - Discharge Medications Prescriptions: Fluticasone/Salmeterol 500/50 [Advair Diskus 500/50] 1 puff INH RQ12 #1 inhaler Mask, Face [Nebulizer Aerosol Mask Adult] 1 dev XX PRN 30 Days #1 dev Nebulizer [Altera Nebulizer] 1 each MC Q6 #1 each - Follow Up Plan Condition: STABLE Disposition: HOME/ ROUTINE Instructions: Fluticasone/Salmeterol (By breathing), Chest Pain (DC), Asthma ( DC), Heart Healthy Diet (DC) Additional Instructions: Patient is stable for discharge to home. Patient must continue home medications. Patient must start new medications as prescribed: Advair Diskus 500/50- take 1 puff twice a day for asthma. Patient must follow up with PMD within one week of discharge for continued outpatient management of Asthma. If symptoms worsen or reoccur, patient should return to the ED. Referrals: Chase Garcia Jr., MD [Medical Doctor] -
[2017-04-11 15:57] VITALS: BP 152/85; PULSE 74; TEMP 99.4; O2SAT 95
--- NOTE | 2017-04-11 16:43 | CP.PCM.PN ---
Subjective - Date & Time of Evaluation Date of Evaluation: 04/11/17 Time of Evaluation: 14:00 - Subjective Subjective: Patient seen and examined at bedside. Patient is alert and comfortable. Patient reports improved breathing and resolved chest pain. He denies fevers, chills, nausea, and palpitations. Assessment/Plan 1. Asthma exacerbation -Negative CTA, CT negative for lung consolidation - Duonebs q4h scheduled - Advair -Mucinex -Methylpred 40 MG IVP q8 -Azithromycin 500MG PO daily -Rocephin 1g q12h Objective - Vital Signs/Intake and Output Vital Signs (last 24 hours): Temp Pulse Resp BP Pulse Ox 99.4 F 74 20 152/85 H 95 04/11/17 15:56 04/11/17 15:56 04/11/17 15:56 04/11/17 15:56 04/11/17 15:56 Intake and Output: 04/11/17 04/11/17 06:59 18:59 Intake Total 600 Balance 600 - Medications Medications: Current Medications Albuterol/Ipratropium (Duoneb 3 Mg/0.5 Mg (3 Ml) Ud) 3 ml INH RQ4 [facility] Last Admin: 04/11/17 11:12 Dose: 3 ml Azithromycin (Zithromax) 500 mg PO DAILY@1400 [facility] Last Admin: 04/11/17 14:16 Dose: 500 mg Famotidine (Pepcid) 20 mg PO DAILY [facility] Last Admin: 04/11/17 10:47 Dose: 20 mg Guaifenesin (Mucinex La) 600 mg PO BID [facility] Last Admin: 04/11/17 10:47 Dose: 600 mg Heparin Sodium (Porcine) (Heparin) 5,000 units SC Q8 [facility] Last Admin: 04/11/17 14:17 Dose: 5,000 units Ceftriaxone Sodium 1 gm/ (Sodium Chloride) 100 mls @ 100 mls/hr IVPB Q12H [facility] Last Admin: 04/11/17 07:08 Dose: 100 mls/hr Methylprednisolone (Solu-Medrol) 40 mg IVP Q8 [facility] Last Admin: 04/11/17 14:16 Dose: 40 mg Nicotine (Nicoderm Cq) 1 patch TD DAILY [facility] Last Admin: 04/11/17 10:48 Dose: Not Given Fluticasone/Salmeterol (Advair Diskus 500/50) 1 puff INH RQ12 [facility] Last Admin: 04/11/17 08:16 Dose: Not Given - Labs Labs: 04/11/17 07:11 04/11/17 07:11 Assessment and Plan (1) Dyspnea Status: Acute
--- NOTE | 2017-04-12 11:02 | CARD ---
APPROVED REPORT EKG Measurement Heart [id number] [place] 158P18 [id number] <Conclusion> Normal sinus rhythm Normal ECG
--- NOTE | 2017-04-13 08:48 | CARD ---
APPROVED REPORT EKG Measurement Heart [id number] [place] 158P24 [id number] <Conclusion> Normal sinus rhythm Normal ECG
--- NOTE | 2017-04-13 09:01 | CARD ---
APPROVED REPORT EKG Measurement Heart [id number] [place] 150P34 [id number] <Conclusion> Normal sinus rhythm Normal ECG
== END 2017-04-11 16:20 | disposition home or self-care (01) ==
LOC: C.ER 07:18 → C.9E 10:01 → C.6T 15:52 → C.9E 16:05 → C.6T 16:28
PROVIDERS: ADMIT Internal Medicine; ATTEND Internal Medicine
DX: J45.901 Unspecified asthma with (acute) exacerbation (principal); R07.89 Other chest pain; F17.200 Nicotine dependence, unspecified, uncomplicated; K74.60 Unspecified cirrhosis of liver
CPT/HCPCS: 36415; 71045; 71275; 80053; 80324; 80345; 80346; 80349; 80353; 80358; 80361; 82550; 82553; 82803; 83735; 83880; 83992; 84100; 84484; 85025; 93005; 93970; 94150; 94640; 96372; 96374; 96375; 96376; 99285; G0378; J0696; J1644; J2543; J2920; J2930; Q9967

== ENCOUNTER 2017-04-27 15:57 | Emergency (ER) | payer MEDICAID ==
[2017-04-27 15:57] VITALS: BMI 37.5
[2017-04-27 16:34] VITALS: RESP 20
[2017-04-27 17:53] VITALS: BP 121/82; PULSE 88; TEMP 98.7
[2017-04-27 17:58] VITALS: O2SAT 98
--- NOTE | 2017-04-27 21:52 | C.PDOC ---
History Of Present Illness 57 y/o male presents to the ER after using 1 heroin bag nasally today. Patient does not have any physical complaints. Of note,patient is awake and alert. Chief Complaint (Nursing): Substance Abuse History Per: Patient History/Exam Limitations: no limitations Onset/Duration Of Symptoms: Hrs Current Symptoms Are (Timing): Still Present Past Medical History Reviewed: Historical Data, Nursing Documentation, Vital Signs Vital Signs: Last Vital Signs Temp 98.7 F 04/27/17 17:51 Pulse 88 04/27/17 17:51 Resp 20 04/27/17 17:51 BP 121/82 04/27/17 17:51 Pulse Ox 98 04/27/17 22:05 - Medical History PMH: Asthma, Pneumonia Denies: Chronic Kidney Disease Surgical History: No Surg Hx - [facility] Procedures DX ULTRASOUND-HEART (07/13/12) Family History: States: No Known Family Hx - Social History Hx Tobacco Use: Yes Hx Alcohol Use: No Hx Substance Use: Yes - Immunization History Hx Tetanus Toxoid Vaccination: Yes Hx Influenza Vaccination: No Hx Pneumococcal Vaccination: No Review Of Systems Except As Marked, All Systems Reviewed And Found Negative. Physical Exam - Physical Exam Appears: No Acute Distress Skin: Normal Color, Warm Head: Atraumatic, Normacephalic Eye(s): bilateral: Normal Inspection Nose: Normal Oral Mucosa: Moist Neck: Supple Chest: Symmetrical Cardiovascular: Rhythm Regular Respiratory: Normal Breath Sounds, No Accessory Muscle Use, No Rales, No Rhonchi , No Wheezing Extremity: Normal ROM Neurological/Psych: Oriented x3, Normal Speech, Normal Motor, Normal Sensation ED Course And Treatment O2 Sat by Pulse Oximetry: 98 (RA) Pulse Ox Interpretation: Normal Disposition - Disposition Referrals: [facility] [Outside] [facility] [Outside] Disposition: HOME/ ROUTINE Disposition Time: 17:20 Condition: GOOD Additional Instructions: Thank you for letting us take care of you today. The emergency medical care you received today was directed at your acute symptoms. If you were prescribed any medication, please fill it and take as directed. It may take several days for your symptoms to resolve. Return to the Emergency Department if your symptoms worsen, do not improve, or if you have any other problems. Please contact your doctor or call one of the physicians/clinics you have been referred to that are listed on the Patient Visit Information form that is included in your discharge packet. Bring any paperwork you were given at discharge with you along with any medications you are taking to your follow up visit. Our treatment cannot replace ongoing medical care by a primary care provider (PCP) outside of the emergency department. Thank you for allowing the [facility] team to be part of your care today. Follow up with your doctor or the clinic in 2-3 days for re-evaluation and further management. Instructions: Drug Abuse and Drug Addiction (DC) Forms: [employer] (Uzbek) - Clinical Impression Clinical Impression: Drug abuse - Scribe Statement The provider has reviewed the documentation as recorded by the Scribe Bertrand Gonzalez Provider Attestation: All medical record entries made by the Scribe were at my direction and personally dictated by me. I have reviewed the chart and agree that the record accurately reflects my personal performance of the history, physical exam, medical decision making, and the department course for this patient. I have also personally directed, reviewed, and agree with the discharge instructions and disposition.
== END 2017-04-27 18:13 | disposition home or self-care (01) ==
LOC: C.ER 15:57
DX: F19.10 Other psychoactive substance abuse, uncomplicated (principal)

== ENCOUNTER 2017-07-02 11:27 | Emergency (ER) | payer MEDICAID ==
[2017-07-02 11:27] VITALS: BMI 37.5
--- NOTE | 2017-07-02 12:13 | C.PDOC ---
Time Seen by Provider: 07/02/17 11:49 Chief Complaint (Nursing): Abdominal Pain Past Medical History Vital Signs: Last Vital Signs Temp 97.9 F 07/02/17 11:36 Pulse 75 07/02/17 11:36 Resp 16 07/02/17 11:36 BP 168/101 H 07/02/17 11:36 Pulse Ox 98 07/02/17 11:36 - Medical History PMH: Asthma, Pneumonia Denies: Chronic Kidney Disease - [facility] Procedures DX ULTRASOUND-HEART (07/13/12) Family History: States: Unknown Family Hx - Social History Hx Tobacco Use: Yes Hx Alcohol Use: No (Former) Hx Substance Use: No (Former) - Immunization History Hx Tetanus Toxoid Vaccination: Yes Hx Influenza Vaccination: No Hx Pneumococcal Vaccination: No ED Course And Treatment O2 Sat by Pulse Oximetry: 98 Disposition - Disposition
[2017-07-02 12:15] VITALS: PULSE 72; RESP 18
[2017-07-02] MEDS ORDERED: Sodium Chloride 0.9% 1,000 ML IV ONE (12:31)
[2017-07-02] MEDS ORDERED: Alum-Mag Hydrox-Simethicone Susp (30 mL) PO STA (12:32)
[2017-07-02] MEDS ORDERED: Sodium Chloride 0.9% 1,000 ML ONE (12:58)
[2017-07-02] MEDS ORDERED: Alum-Mag Hydrox-Simethicone Susp (30 mL) ONE (12:59)
[2017-07-02 13:08] LABS: BASO % 0.4 % (0.0-2.0); EOS # 0.2 K/uL (0.0-0.7); EOS % 3.1 % (0.0-4.0); LYMPH # 2.3 K/uL (1.0-4.3); LYMPH % 28.6 % (20.0-40.0); MEAN CELL VOLUME 87.6 fL (80.0-94.0); MEAN CORPUSCULAR HEMOGLOBIN 29.6 pg (27.0-31.0); MEAN CORPUSCULAR HGB CONC 33.8 g/dL (33.0-37.0); MEAN PLATELET VOLUME 8.8 fL (7.2-11.7); MONO # 0.6 K/uL (0.0-0.8); NEUT % 60.9 % (50.0-75.0); NRBC % 0.1 % (0.0-2.0); RBC 4.39 Mil/uL (4.40-5.90); RED CELL DISTRIBUTION WIDTH 13.5 % (11.5-14.5); WHITE BLOOD COUNT 8.1 K/uL (4.8-10.8)
--- NOTE | 2017-07-02 13:19 | C.PDOC ---
History Of Present Illness 57-year-old male, presents to the emergency department with complaints of epigastric abdominal pain that started yesterday. Pain is intermittent in nature , described as sharp sensation. Notes the pain has improved since yesterday. Patient states he had three soft bowel movements today. He denies nausea/ vomiting, fevers, shortness of breath, chest pain or any other associated symptoms. Time Seen by Provider: 07/02/17 11:49 Chief Complaint (Nursing): Abdominal Pain History Per: Patient History/Exam Limitations: no limitations Onset/Duration Of Symptoms: Days Current Symptoms Are (Timing): Still Present Pain Scale Rating Of: 4 Location Of Pain/Discomfort: Epigastric Past Medical History Reviewed: Historical Data, Nursing Documentation, Vital Signs Vital Signs: Last Vital Signs Temp 98.1 F 07/02/17 13:32 Pulse 72 07/02/17 13:32 Resp 18 07/02/17 13:32 BP 170/67 H 07/02/17 13:32 Pulse Ox 95 07/02/17 15:53 - Medical History PMH: Asthma, Pneumonia - [facility] Procedures DX ULTRASOUND-HEART (07/13/12) Family History: States: No Known Family Hx - Social History Hx Tobacco Use: Yes Hx Alcohol Use: No (Former) Hx Substance Use: No (Former) - Immunization History Hx Tetanus Toxoid Vaccination: Yes Hx Influenza Vaccination: No Hx Pneumococcal Vaccination: No Review Of Systems Constitutional: Negative for: Fever Cardiovascular: Negative for: Chest Pain Respiratory: Negative for: Shortness of Breath Gastrointestinal: Positive for: Abdominal Pain, Diarrhea. Negative for: Nausea , Vomiting Musculoskeletal: Negative for: Back Pain Neurological: Negative for: Weakness, Numbness, Headache, Dizziness Physical Exam - Physical Exam Appears: Well, Non-toxic, No Acute Distress Skin: Normal Color, Warm, Dry, No Rash Head: Atraumatic, Normacephalic Eye(s): bilateral: Normal Inspection, EOMI Nose: Normal Oral Mucosa: Moist Lips: Normal Appearing Neck: Normal ROM, Supple Chest: Symmetrical Cardiovascular: Rhythm Regular Respiratory: Normal Breath Sounds, No Accessory Muscle Use Gastrointestinal/Abdominal: Soft, Tenderness (Epigastric), No Guarding, No Rebound, Other (obese) Extremity: Normal ROM, No Deformity, No Swelling Neurological/Psych: Oriented x3, Normal Speech ED Course And Treatment - Laboratory Results Result Diagrams: 07/02/17 12:50 07/02/17 12:50 O2 Sat by Pulse Oximetry: 95 (RA) Pulse Ox Interpretation: Normal Progress Note: EKG and bloodwork ordered and reviewed. Patient treated with Maalox, Protonix, IVFs and Toradol. On re-evaluation, Patient is resting comfortably and notes the pain improved. Abdomen remains soft, and patient is tolerating PO. Patient feels comfortable going home. Instructed to follow up with PMD/GI in 1-2 days. Return to eR if symtpoms persist or worsen. Case discussed with Dr Barone, agreed upon plan and discharge. Disposition - Disposition Disposition: HOME/ ROUTINE Disposition Time: 13:42 Condition: STABLE Additional Instructions: Follow up with primary medical doctor in 1-3 days without fail for further evaluation. Take medications as prescribed. Return to the emergency department at any time if symptoms persist or worsen. Prescriptions: Famotidine [Pepcid] 20 mg PO BID #10 tab Instructions: Gastritis (DC) Forms: [employer] (Japanese) - Clinical Impression Clinical Impression: Abdominal pain - Scribe Statement The provider has reviewed the documentation as recorded by the Scribe (Krystina Mohamud) All medical record entries made by the Scribe were at my direction and personally dictated by me. I have reviewed the chart and agree that the record accurately reflects my personal performance of the history, physical exam, medical decision making, and the department course for this patient. I have also personally directed, reviewed, and agree with the discharge instructions and disposition.
[2017-07-02 13:20] LABS: ALB/GLOB RATIO 0.9 (1.0-2.1); ALBUMIN 3.8 g/dL (3.5-5.0); ALT/SGPT 15 U/L (21-72); AST/SGOT 20 U/L (17-59); BLOOD UREA NITROGEN 17 mg/dL (9-20); CALCIUM 8.6 mg/dl (8.6-10.4); GFR AFRICAN-AMERICAN > 60; GFR NON-AFRICAN AMERICAN > 60; LIPASE 51 U/L (23-300)
[2017-07-02 13:29] LABS: CK-MB 0.37 ng/mL (0.0-3.38)
[2017-07-02 13:34] VITALS: BP 170/67; TEMP 98.1
[2017-07-02 13:43] VITALS: O2SAT 95
--- NOTE | 2017-07-03 18:22 | CARD ---
APPROVED REPORT EKG Measurement Heart [id number] [place] 154P25 [id number] <Conclusion> Normal sinus rhythm Normal ECG
== END 2017-07-02 13:53 | disposition home or self-care (01) ==
LOC: C.ER 11:27
DX: R10.13 Epigastric pain (principal)
CPT/HCPCS: 36415; 80053; 82550; 82553; 83690; 84484; 85025; 93005; 96361; 96374; 96375; 99285; C9113; J1885; J7040

== ENCOUNTER 2017-07-14 08:39 | Emergency (ER) | payer MEDICAID ==
[2017-07-14 08:54] VITALS: BMI 40.4
--- NOTE | 2017-07-14 09:18 | C.PDOC ---
History Of Present Illness 57 yo male, hx of hep c, presents with left leg hematoma, he noticed yesterday. does not recall trauma. pt ambulatory into triage in [facility]. no fevers, no other complaints. Time Seen by Provider: 07/14/17 09:07 Chief Complaint (Nursing): Lower Extremity Problem/Injury Past Medical History Reviewed: Historical Data, Nursing Documentation, Vital Signs Vital Signs: Last Vital Signs Temp 98.1 F 07/14/17 11:23 Pulse 74 07/14/17 11:23 Resp 18 07/14/17 11:23 BP 143/76 07/14/17 11:23 Pulse Ox 98 07/14/17 11:23 - Medical History PMH: Asthma, Pneumonia Denies: Chronic Kidney Disease - [facility] Procedures DX ULTRASOUND-HEART (07/13/12) Family History: States: Unknown Family Hx - Social History Hx Tobacco Use: Yes Hx Alcohol Use: No (Former) Hx Substance Use: No (Former) - Immunization History Hx Tetanus Toxoid Vaccination: Yes Hx Influenza Vaccination: No Hx Pneumococcal Vaccination: No Review Of Systems Skin: Positive for: Bruising Physical Exam - Physical Exam Appears: Well, No Acute Distress Skin: Normal Color, Warm, Dry Eye(s): bilateral: Normal Inspection, PERRL, EOMI Nose: Normal Throat: Normal Neck: Normal Cardiovascular: Rhythm Regular Respiratory: Normal Breath Sounds Gastrointestinal/Abdominal: Normal Exam Back: Normal Inspection Extremity: Normal ROM, Other (ecchymosis to left upper leg, more to posterior aspect, no palpable fluctuance) ED Course And Treatment - Laboratory Results Result Diagrams: 07/14/17 09:31 07/14/17 09:31 O2 Sat by Pulse Oximetry: 97 Medical Decision Making Medical Decision Making: hematoma - pt does not recall trauma. will eval for coagulapathy, fracture, dvt , vs ?bite. pt ambulatory in nad. pt reasessed. labs us neg. pain minimal. acute compartment unlikely. pulses present. minimal pain. pt ambulatory. advise outpt fu and return precautions Disposition - Disposition Referrals: [facility] [Outside] [facility] [Outside] Disposition: HOME/ ROUTINE Disposition Time: 11:00 Condition: STABLE Additional Instructions: please follow up with your doctor. return to er with worsening symptoms or concerns. Prescriptions: Naproxen [Naprosyn] 500 mg PO BID PRN #14 tablet PRN Reason: Pain, Mild (1-3) Instructions: Contusion (DC) Forms: [employer] (Eritrean) - Clinical Impression Clinical Impression: Bruise
[2017-07-14 09:34] LABS: BASO % 0.4 % (0.0-2.0); EOS # 0.4 K/uL (0.0-0.7); EOS % 4.2 % (0.0-4.0); HEMOGLOBIN 12.5 g/dL (12.0-18.0); LYMPH # 2.8 K/uL (1.0-4.3); LYMPH % 30.3 % (20.0-40.0); MEAN CORPUSCULAR HEMOGLOBIN 29.5 pg (27.0-31.0); MEAN CORPUSCULAR HGB CONC 33.9 g/dL (33.0-37.0); MEAN PLATELET VOLUME 9.1 fL (7.2-11.7); MONO # 0.5 K/uL (0.0-0.8); MONO % 5.1 % (0.0-10.0); NEUT # 5.6 K/uL (1.8-7.0); RBC 4.23 Mil/uL (4.40-5.90); RED CELL DISTRIBUTION WIDTH 13.4 % (11.5-14.5); WHITE BLOOD COUNT 9.3 K/uL (4.8-10.8)
[2017-07-14 09:42] LABS: INR 1.1; PROTHROMBIN TIME 12.9 SECONDS (9.7-12.2)
[2017-07-14 09:54] LABS: ALB/GLOB RATIO 0.9 (1.0-2.1); ALBUMIN 3.8 g/dL (3.5-5.0); ALT/SGPT 17 U/L (21-72); AST/SGOT 26 U/L (17-59); BLOOD UREA NITROGEN 27 mg/dL (9-20); CALCIUM 8.3 mg/dl (8.6-10.4); GFR AFRICAN-AMERICAN > 60; GFR NON-AFRICAN AMERICAN > 60
--- NOTE | 2017-07-14 10:29 | RAD ---
PROCEDURE: Left Femur Radiographs. HISTORY: swelling COMPARISON: None. TECHNIQUE: AP and Lateral Radiographs of the left femur. FINDINGS: FEMUR: Normal. No fracture. SOFT TISSUES: Normal. OTHER FINDINGS: None. IMPRESSION: Unremarkable radiographs of the left femur.
--- NOTE | 2017-07-14 10:29 | RAD ---
PROCEDURE: Left Knee Radiographs. HISTORY: Pain. COMPARISON: None. FINDINGS: BONES: Normal. No fracture. JOINTS: Normal. No osteoarthritis. JOINT EFFUSION: None. OTHER FINDINGS: None. IMPRESSION: Normal radiographs of the left knee.
[2017-07-14 11:25] VITALS: BP 143/76; PULSE 74; RESP 18; TEMP 98.1
--- NOTE | 2017-07-14 13:26 | VASCLAB ---
PROCEDURE: Left Lower Extremity Venous Duplex Exam. HISTORY: swelling PRIORS: None. TECHNIQUE: Left common femoral, femoral, popliteal and posterior tibial, peroneal and great saphenous veins were evaluated. Flow was assessed with color Doppler, compressibility, assessment of phasic flow and augmentation response. Report prepared by AURORA Alatorre, RVT FINDINGS: LEFT: 1. Common Femoral Vein: 1.1. Compressibility - Fully compressible: Thrombus - None : Flow - Phasic: Augmentation -Normal: Reflux - None. 2. Femoral Vein: 2.1. Compressibility - Fully compressible: Thrombus - None: Flow - Phasic: Augmentation -Normal: Reflux - None. 3. Popliteal Vein: 3.1. Compressibility - Fully compressible: Thrombus - None: Flow - Phasic: Augmentation -Normal: Reflux - None. 4. Posterior Tibial Vein: 4.1. Compressibility - : Thrombus - : Flow - : Augmentation -: Reflux - . 5. Peroneal Vein: 5.1. Compressibility - : Thrombus - : Flow - : Augmentation -: Reflux - . 6. Great Saphenous Vein: 6.1. Compressibility - Fully compressible: Thrombus - None: Flow - Phasic: Augmentation - Normal: Reflux - None. OTHER FINDINGS: Due to swelling in the calf, the left peroneal and posterior tibial vein were not visualized. IMPRESSION: No evidence of deep or superficial vein thrombosis of the left lower extremity with excellent venous flow. Normal valve function noted of the left side. Normal venous flow noted in the right common femoral vein.
[2017-07-15 23:40] VITALS: O2SAT 97
== END 2017-07-14 11:24 | disposition home or self-care (01) ==
LOC: C.ER 08:39
DX: S80.12XA Contusion of left lower leg, initial encounter (principal); X58.XXXA Exposure to other specified factors, initial encounter; Z72.0 Tobacco use

== ENCOUNTER 2017-07-31 04:17 | Inpatient (IN) | payer MEDICAID ==
[2017-07-31 04:17] VITALS: BMI 40.4
[2017-07-31] MEDS ORDERED: Albuterol-Ipratrop 3 mg / 0.5 (3 ml) UD INH STA ×3 (05:02→05:03)
[2017-07-31] MEDS ORDERED: Albuterol-Ipratrop 3 mg / 0.5 (3 ml) UD ONE (05:11)
--- NOTE | 2017-07-31 05:13 | C.PDOC ---
History Of Present Illness 57 year old male presents to the ED for evaluation of chest pain and cough since yesterday. Patient also reports fever. He also complains of chronic swelling to his left lower leg. Patient denies shortness of breath. Chief Complaint (Nursing): Chest Pain History Per: Patient History/Exam Limitations: no limitations Onset/Duration Of Symptoms: Hrs Current Symptoms Are (Timing): Still Present Quality: "Pain" Additional History Per: Patient Past Medical History Reviewed: Historical Data, Nursing Documentation, Vital Signs Vital Signs: Last Vital Signs Temp 100.1 F H 07/31/17 04:39 Pulse 108 H 07/31/17 04:39 Resp 16 07/31/17 04:39 BP 153/62 H 07/31/17 04:39 Pulse Ox 97 07/31/17 05:59 - Medical History PMH: Asthma, HTN, Pneumonia Denies: Chronic Kidney Disease Surgical History: No Surg Hx - [facility] Procedures DX ULTRASOUND-HEART (07/13/12) Family History: States: Unknown Family Hx - Social History Hx Tobacco Use: Yes Hx Alcohol Use: No (Former) Hx Substance Use: No (Former) - Immunization History Hx Tetanus Toxoid Vaccination: Yes Hx Influenza Vaccination: Yes Hx Pneumococcal Vaccination: Yes Review Of Systems Constitutional: Positive for: Fever Cardiovascular: Positive for: Chest Pain Respiratory: Positive for: Cough. Negative for: Shortness of Breath Skin: Positive for: Other (chronic left lower leg swelling ) Physical Exam - Physical Exam Appears: Non-toxic, Other (in mild distress due to pain, slight difficulty with breathing noted ) Skin: Normal Color, Warm, Dry Head: Atraumatic, Normacephalic Oral Mucosa: Moist Neck: Supple Chest: Symmetrical, No Deformity, No Tenderness Cardiovascular: Rhythm Regular, No Murmur Respiratory: Rales (in left lower lung ), Rhonchi (bilaterally ), Wheezing ( bilaterally ) Gastrointestinal/Abdominal: Soft, No Tenderness, No Guarding, No Rebound Extremity: Normal ROM, Tenderness (to left lower leg ), Capillary Refill (less than 2 seconds ), Other (2+ edema to left lower leg ) Pulses: Left Dorsalis Pedis: Normal, Right Dorsalis Pedis: Normal Neurological/Psych: Oriented x3, Normal Speech, Normal Cognition, Normal Sensation ED Course And Treatment - Laboratory Results Result Diagrams: 07/31/17 05:39 07/31/17 05:39 ECG: Interpreted By Me, Viewed By Me ECG Rhythm: Sinus Tachycardia, Nonspecific Changes ECG Interpretation: No Acute Changes Rate From EC O2 Sat by Pulse Oximetry: 97 (on RA) Pulse Ox Interpretation: Normal - Radiology CXR: Interpreted by Me, Viewed By Me CXR Interpretation: Yes: No Acute Disease. No: Infiltrates Progress Note: Bloodwork, CXR, EKG ordered and reviewed. Albuterol INH, Toradol IVP and Tylenol PO administered. Disposition Discussed With Dr.: Chase Garcia Jr. Doctor Will See Patient In The: Hospital Counseled Patient/Family Regarding: Diagnosis - Disposition Disposition: HOSPITALIZED Disposition Time: 06:26 Condition: STABLE Forms: [employer]TI[employer] (Serbian) - POA Present On Arrival: None - Clinical Impression Clinical Impression: Chest pain, Asthma, Cellulitis of left leg - Scribe Statement The provider has reviewed the documentation as recorded by the Scribe (Savanna Serra) Provider Attestation: All medical record entries made by the Scribe were at my direction and personally dictated by me. I have reviewed the chart and agree that the record accurately reflects my personal performance of the history, physical exam, medical decision making, and the department course for this patient. I have also personally directed, reviewed, and agree with the discharge instructions and disposition.
[2017-07-31 05:42] LABS: BASO % 0.2 % (0.0-2.0); EOS % 0.1 % (0.0-4.0); HEMOGLOBIN 12.4 g/dL (12.0-18.0); LYMPH # 1.1 K/uL (1.0-4.3); LYMPH % 6.3 % (20.0-40.0); MEAN CELL VOLUME 87.1 fL (80.0-94.0); MEAN CORPUSCULAR HEMOGLOBIN 29.7 pg (27.0-31.0); MEAN CORPUSCULAR HGB CONC 34.1 g/dL (33.0-37.0); MEAN PLATELET VOLUME 9.4 fL (7.2-11.7); MONO # 0.7 K/uL (0.0-0.8); MONO % 4.2 % (0.0-10.0); NEUT % 89.2 % (50.0-75.0); PLATELET COUNT 168 K/uL (130-400); RBC 4.17 Mil/uL (4.40-5.90); RED CELL DISTRIBUTION WIDTH 13.4 % (11.5-14.5); WHITE BLOOD COUNT 16.8 K/uL (4.8-10.8)
[2017-07-31] MEDS ORDERED: cefTRIAXone IV 1 gm in Dextros 50 ML IVPB ONE ×2 (06:01→06:29)
[2017-07-31 06:02] LABS: ALB/GLOB RATIO 0.9 (1.0-2.1); ALBUMIN 3.8 g/dL (3.5-5.0); ALT/SGPT 29 U/L (21-72); AST/SGOT 25 U/L (17-59); BLOOD UREA NITROGEN 23 mg/dL (9-20); CALCIUM 9.2 mg/dl (8.6-10.4); GFR AFRICAN-AMERICAN > 60; GFR NON-AFRICAN AMERICAN > 60
[2017-07-31 06:11] LABS: B-TYPE NATRIURETIC PEPTIDE 168 pg/mL (0-900)
[2017-07-31 06:23] LABS: URINE BILIRUBIN NEGATIVE (NEGATIVE); URINE BLOOD NEGATIVE (NEGATIVE); URINE CLARITY Clear (Clear); URINE COLOR Yellow (YELLOW); URINE GLUCOSE (UA) NORMAL (Normal); URINE LEUKOCYTE ESTERASE NEG Leu/uL (Negative); URINE PROTEIN NEGATIVE (NEGATIVE); URINE UROBILINOGEN NORMAL mg/dL (0.2-1.0)
[2017-07-31 06:26] LABS: VENOUS BLOOD GAS BASE EXCESS -0.6 mmol/L (0.0-2.0); VENOUS BLOOD GAS PCO2 35 mmHg (40-60); VENOUS BLOOD GAS PO2 124 mm/Hg (30-55); VENOUS BLOOD PH 7.43 (7.32-7.43)
[2017-07-31 08:18] VITALS: RESP 20
--- NOTE | 2017-07-31 08:29 | RAD ---
HISTORY: chest pain COMPARISON: 04/10/2017 TECHNIQUE: Chest PA and lateral FINDINGS: LUNGS: No active pulmonary disease. PLEURA: No significant pleural effusion identified. No pneumothorax apparent. CARDIOVASCULAR: Normal. OSSEOUS STRUCTURES: No significant abnormalities. VISUALIZED UPPER ABDOMEN: Normal. OTHER FINDINGS: None. IMPRESSION: No active disease.
[2017-07-31 08:35] LABS: ANISOCYTOSIS SLIGHT; BANDS 5 % (0-2); LYMPHOCYTE 6 % (20-40); MONOCYTE 4 % (0-10); NEUTROPHIL 85 % (50-75); PLATELET ESTIMATE NORMAL (NORMAL); TOTAL CELLS COUNTED 100
[2017-07-31 08:38] LABS: HYPOCHROMIC SLIGHT
--- NOTE | 2017-07-31 08:39 | CP.PCM.HP ---
History of Present Illness - History of Present Illness History of Present Illness: CC: short of breath HPI: 57 year old male with past medical history of asthma, left leg cellulitis, cirrhosis, hepatitis C who presents to the ED for shortness of breath and chest pain. Chest pain is midsternal and is on the right chest. Patient states he woke up this morning feeling like there is pressure on his midsternum. He said he hasn't had this feeling before. Patient states he has a headache. Patient denies fever, chills, nausea, vomiting, diarrhea, constipation. Patient states the pain is an 8/10 and nothing makes it better or worse. Patient admits to a cough with phlegm this morning. Before today, patient did not have a cough recently. Patient was seen on 04/10/17 for shortness of breath and sent home on Fluticasone/Salmeterol 500/50 [Advair Diskus 500/50] 1 puff INH RQ12 #1 inhaler , Mask, Face [Nebulizer Aerosol Mask Adult] 1 dev XX PRN 30 Days #1 dev, Nebulizer [Altera Nebulizer] 1 each MC Q6 #1 each Past Medical History: Asthma, left leg cellulitis, cirrhosis (2001), hepatitis C (2001) Past Surgical History: tumor removal of left leg by Dr. Corrales Family History: Mom - at 71yo due to diabetes, Dad at age 49 due to [place] Medications: Ventolin, Nebulizer Social History: Lives with stepfather; incarcerated for 1 year and released during 10/2016 Patient smokes about 5 cigarettes per day for 30 years Patient denies ETOH use Previously used heroin IV - has not used for 2 years. Allergies: NKDA PMD: Dr. Holden Present on Admission - Present on Admission Any Indicators Present on Admission: No History of DVT/PE: No History of Uncontrolled Diabetes: No Urinary Catheter: No Decubitus Ulcer Present: No Past Patient History - Past Medical History & Family History Past Medical History?: Yes - Past Social History Smoking Status: Light Smoker < 10 Cigarettes Daily - CARDIAC Hx Hypertension: Yes - PULMONARY Hx Asthma: Yes Hx Pneumonia: Yes - NEUROLOGICAL Hx Neurological Disorder: No - HEENT Hx HEENT Problems: No - RENAL Hx Chronic Kidney Disease: No - ENDOCRINE/METABOLIC Hx Endocrine Disorders: No - HEMATOLOGICAL/ONCOLOGICAL Hx Blood Disorders: Yes Hx Cirrhosis: Yes Hx Hepatitis C: Yes - INTEGUMENTARY Hx Dermatological Problems: No - MUSCULOSKELETAL/RHEUMATOLOGICAL Hx Musculoskeletal Disorders: No - GASTROINTESTINAL Hx Gastrointestinal Disorders: No - GENITOURINARY/GYNECOLOGICAL Hx Genitourinary Disorders: No - PSYCHIATRIC Hx Substance Use: No (Former) - SURGICAL HISTORY Hx Surgeries: Yes Other/Comment: Biopsy to left lower leg 2017 - ANESTHESIA Hx Anesthesia: Yes Meds Home Medications: Home Medication List Medication Instructions Recorded Confirmed Type Azithromycin 500 mg PO DAILY #5 tablet 08/01/17 Rx Fluticasone/Salmeterol 500/50 1 puff IH Q12 7 Days #1 puff 08/01/17 Rx [Advair Diskus] Losartan [Cozaar] 50 mg PO DAILY #14 tab 08/01/17 Rx Allergies/Adverse Reactions: Allergies Allergy/AdvReac Type Severity Reaction Status Date / Time No Known Allergies Allergy Verified 07/31/17 04:46 Physical Exam - Constitutional Appears: No Acute Distress - Head Exam Head Exam: ATRAUMATIC, NORMAL INSPECTION, NORMOCEPHALIC - Eye Exam Eye Exam: EOMI, Normal appearance - ENT Exam ENT Exam: Mucous Membranes Moist, Normal Exam - Respiratory Exam Respiratory Exam: NORMAL BREATHING PATTERN. absent: Rales, Wheezes, Respiratory Distress - Cardiovascular Exam Cardiovascular Exam: REGULAR RHYTHM, +S1, +S2. absent: Bradycardia, Tachycardia - GI/Abdominal Exam GI & Abdominal Exam: Soft. absent: Tenderness - Extremities Exam Extremities exam: Positive for: full ROM Additional comments: Left leg edema, non-pitting. surgical scar lateral mid-tibia. - Back Exam Back exam: FULL ROM, NORMAL INSPECTION - Neurological Exam Neurological exam: CN II-XII Intact, Normal Gait - Psychiatric Exam Psychiatric exam: Normal Affect, Normal Mood - Skin Skin Exam: Dry, Intact, Normal Color, Warm Results - Vital Signs Recent Vital Signs: Last Vital Signs Temp 97.4 F L 07/31/17 08:05 Pulse 97 H 07/31/17 08:05 Resp 20 07/31/17 08:05 BP 123/62 07/31/17 08:05 Pulse Ox 97 07/31/17 08:05 - Labs Result Diagrams: 08/01/17 11:27 08/01/17 11:27 Labs: Laboratory Results - last 24 hr 07/31/17 07/31/17 07/31/17 05:39 05:39 05:39 WBC 16.8 H D RBC 4.17 L Hgb 12.4 Hct 36.3 MCV 87.1 MCH 29.7 MCHC 34.1 RDW 13.4 Plt Count 168 MPV 9.4 Neut % (Auto) 89.2 H Lymph % (Auto) 6.3 L [place] % (Auto) 4.2 Eos % (Auto) 0.1 Baso % (Auto) 0.2 Neut # (Auto) 15.0 H Lymph # (Auto) 1.1 [place] # (Auto) 0.7 Eos # (Auto) 0.0 Baso # (Auto) 0.0 Neutrophils % (Manual) 85 H Band Neutrophils % 5 H Lymphocytes % (Manual) 6 L Monocytes % (Manual) 4 Platelet Estimate Normal Hypochromasia (manual) Slight Anisocytosis (manual) Slight D-Dimer, Quantitative 341 H pO2 VBG pH VBG pCO2 VBG HCO3 VBG Total CO2 VBG O2 Sat (Calc) VBG Base Excess VBG Potassium Glucose Lactate Sodium 141 Potassium 4.2 Chloride 108 H Carbon Dioxide 22 Anion Gap 15 BUN 23 H Creatinine 1.1 Est GFR ( Amer) > 60 Est GFR (Non-Af Amer) > 60 Random Glucose 133 H Calcium 9.2 Total Bilirubin 0.7 AST 25 ALT 29 Alkaline Phosphatase 78 Troponin I 0.0260 NT-Pro-B Natriuret Pep 168 Total Protein 8.0 Albumin 3.8 Globulin 4.2 H Albumin/Globulin Ratio 0.9 L Venous Blood Potassium Urine Color Urine Clarity Urine pH Ur Specific [place] Urine Protein Urine Glucose (UA) Urine Ketones Urine Blood Urine Nitrate Urine Bilirubin Urine Urobilinogen Ur Leukocyte Esterase Urine WBC (Auto) Urine RBC (Auto) Influenza Typ A,B (EIA) 07/31/17 07/31/17 07/31/17 06:10 06:15 06:18 WBC RBC Hgb Hct MCV MCH MCHC RDW Plt Count MPV Neut % (Auto) Lymph % (Auto) [place] % (Auto) Eos % (Auto) Baso % (Auto) Neut # (Auto) Lymph # (Auto) [place] # (Auto) Eos # (Auto) Baso # (Auto) Neutrophils % (Manual) Band Neutrophils % Lymphocytes % (Manual) Monocytes % (Manual) Platelet Estimate Hypochromasia (manual) Anisocytosis (manual) D-Dimer, Quantitative pO2 124 H VBG pH 7.43 VBG pCO2 35 L VBG HCO3 24.5 VBG Total CO2 24.3 VBG O2 Sat (Calc) 99.7 H VBG Base Excess -0.6 L VBG Potassium 3.8 Glucose 132 H Lactate 1.9 Sodium 138.0 Potassium Chloride 108.0 H Carbon Dioxide Anion Gap BUN Creatinine Est GFR ( Amer) Est GFR (Non-Af Amer) Random Glucose Calcium Total Bilirubin AST ALT Alkaline Phosphatase Troponin I NT-Pro-B Natriuret Pep Total Protein Albumin Globulin Albumin/Globulin Ratio Venous Blood Potassium 3.8 Urine Color Yellow Urine Clarity Clear Urine pH 5.0 Ur Specific [place] 1.016 Urine Protein Negative Urine Glucose (UA) Normal Urine Ketones Negative Urine Blood Negative Urine Nitrate Negative Urine Bilirubin Negative Urine Urobilinogen Normal Ur Leukocyte Esterase Neg Urine WBC (Auto) 1 Urine RBC (Auto) 1 Influenza Typ A,B (EIA) Negative for flu a/b Assessment & Plan - Assessment and Plan (Free Text) Assessment: 57M with past medical history of HTN, hep C, left lower leg cellulitis history, resolved presents with chest pain, cough. asthma exacerbation duonebs Q6H PRN Solumedrol 40mg IV Q8H Zithromycin 500mg Q24H Hx of HTN Cozaar 50mg POQD hx of lower extremity cellulitis ddimer 341 f/u lower extremity duplex Phyllis Archuleta DO PGY1 - Date & Time Date: 07/31/17 Time: 11:17
[2017-07-31] MEDS: Azithromycin 500 MG in Sodium Chloride 0.9% 250 ML IVPB SCH (08:58)
[2017-07-31] MEDS: Enoxaparin 40 mg Syringe SC SCH (09:49)
[2017-07-31] MEDS: Albuterol-Ipratrop 3 mg / 0.5 (3 ml) UD INH SCH ×3 (11:01→19:07)
[2017-07-31] MEDS ORDERED: MethylPREDNISolone 40 mg Vial IVP SCH (11:30)
[2017-07-31 12:26] LABS: CK-MB 0.25 ng/mL (0.0-3.38)
--- NOTE | 2017-07-31 13:10 | VASCLAB ---
PROCEDURE: Left Lower Extremity Venous Duplex Exam. HISTORY: lle edema, ddimer elevated PRIORS: Left lower extremity ultrasound dated 07/14/2017. TECHNIQUE: Left common femoral, femoral, popliteal and posterior tibial, peroneal and great saphenous veins were evaluated. Flow was assessed with color Doppler, compressibility, assessment of phasic flow and augmentation response. Report prepared by Anatoly Hughes, AURORA, RVT FINDINGS: LEFT: 1. Common Femoral Vein: 1.1. Compressibility - Fully compressible: Thrombus - None : Flow - Phasic: Augmentation -Normal: Reflux - None. 2. Femoral Vein: 2.1. Compressibility - Fully compressible: Thrombus - None: Flow - Phasic: Augmentation -Normal: Reflux - None. 3. Popliteal Vein: 3.1. Compressibility - Fully compressible: Thrombus - None: Flow - Phasic: Augmentation -Normal: Reflux - None. 4. Posterior Tibial Vein: 4.1. Compressibility - Fully compressible: Thrombus - None: Flow - Phasic: Augmentation -Normal: Reflux - None. 5. Peroneal Vein: 5.1. Compressibility - Fully compressible: Thrombus - None: Flow - Phasic: Augmentation -Normal: Reflux - None. 6. Great Saphenous Vein: 6.1. Compressibility - Fully compressible: Thrombus - None: Flow - Phasic: Augmentation - Normal: Reflux - None. OTHER FINDINGS: IMPRESSION: No evidence of deep or superficial vein thrombosis of the left lower extremity with excellent venous flow. Normal valve function noted of the left side. Normal venous flow noted in the right common femoral vein.
--- NOTE | 2017-07-31 17:24 | CP.PCM.CON ---
History of Present Illness - History of Present Illness History of Present Illness: Reason for Consult: Asthma, Shortness of Breath HPI: Mr. Forbes is a 57 year old male with PMHx of Asthma, HTN, Cirrhosis, and Hepatitis C, who presented to the ED for chest pain. Patient states chest pain started at 3AM this morning that awoke him from his sleep. He describes the chest pain as midsternal pressure and rates the pain as 8 out of 10. He states the pain does not radiate anywhere. Patient also has associated shortness of breath that began at the same time. Patient complains of cough with no phlem production and rhinorrhea. Patient denies recent sick contacts. Patient denies vomiting, diarrhea, constipation, fever, chills, or leg pain. PMHx: Asthma, Cirrhosis, Hepatitis C, HTN Medications: Cozaar 50mg, Ventolin PSH: Left leg biopsy ([address] Corrales) Allergies: NKDA Family Hx: Mother at 71 y/o due to DM; Father due to DM Social: Lives with stepfather, on disability. Smokes 5 cigarettes per day for 30 years. Denies alcohol or illicit drug use currently. Past history of heroin use disorder; sober for 2 years. PMD: Dr. Holden Assessment/Plan: 1. Asthma Exacerbation - Chest XR 07/31/2017: Impression no active disease. - Continue Nebulizer 2. Left Leg Edema, possible Cellulitis - D-dimer elevated: 341 - Venous Doppler 07/31/2017: No evidence of deep or superficial vein thrombosis of left lower extremity with excellent venous flow. - Continue Azithromycin 3. Hypertension - Management per primary team Past Patient History - Past Medical History & Family History Past Medical History?: Yes - Past Social History Smoking Status: Light Smoker < 10 Cigarettes Daily - CARDIAC Hx Cardiac Disorders: Yes Hx Hypertension: Yes - PULMONARY Hx Respiratory Disorders: Yes Hx Asthma: Yes Hx Pneumonia: Yes - NEUROLOGICAL Hx Neurological Disorder: No - HEENT Hx HEENT Problems: No - RENAL Hx Chronic Kidney Disease: No - ENDOCRINE/METABOLIC Hx Endocrine Disorders: No - HEMATOLOGICAL/ONCOLOGICAL Hx Blood Disorders: Yes Hx Cirrhosis: Yes Hx Hepatitis C: Yes - INTEGUMENTARY Hx Dermatological Problems: No - MUSCULOSKELETAL/RHEUMATOLOGICAL Hx Musculoskeletal Disorders: No - GASTROINTESTINAL Hx Gastrointestinal Disorders: No - GENITOURINARY/GYNECOLOGICAL Hx Genitourinary Disorders: No - PSYCHIATRIC Hx Substance Use: No (Former) - SURGICAL HISTORY Hx Surgeries: Yes Other/Comment: Biopsy to left lower leg 2017 - ANESTHESIA Hx Anesthesia: Yes Hx Anesthesia Reactions: No Hx Malignant Hyperthermia: No Has any member of the family had a problem w/ anesthesia?: No Meds Allergies/Adverse Reactions: Allergies Allergy/AdvReac Type Severity Reaction Status Date / Time No Known Allergies Allergy Verified 07/31/17 04:46 - Medications Medications: Current Medications Albuterol/Ipratropium (Duoneb 3 Mg/0.5 Mg (3 Ml) Ud) 3 ml INH RQ4 [facility] Last Admin: 07/31/17 16:26 Dose: 3 ml Enoxaparin Sodium (Lovenox) 40 mg SC DAILY [facility] Last Admin: 07/31/17 09:49 Dose: 40 mg Famotidine (Pepcid) 20 mg PO DAILY [facility] Last Admin: 07/31/17 09:49 Dose: 20 mg Azithromycin 500 mg/ Sodium (Chloride) 250 mls @ 167 mls/hr IVPB Q24H [facility] PRN Reason: Protocol Last Admin: 07/31/17 08:58 Dose: 167 mls/hr Losartan Potassium (Cozaar) 50 mg PO DAILY [facility] Last Admin: 07/31/17 11:34 Dose: 50 mg Results - Vital Signs Recent Vital Signs: Last Vital Signs Temp 98 F 07/31/17 16:00 Pulse 84 07/31/17 16:00 Resp 20 07/31/17 16:00 BP 127/68 07/31/17 16:00 Pulse Ox 94 L 07/31/17 16:00 - Labs Result Diagrams: 07/31/17 05:39 07/31/17 05:39 Labs: Laboratory Results - last 24 hr 07/31/17 07/31/17 07/31/17 05:39 05:39 05:39 WBC 16.8 H D RBC 4.17 L Hgb 12.4 Hct 36.3 MCV 87.1 MCH 29.7 MCHC 34.1 RDW 13.4 Plt Count 168 MPV 9.4 Neut % (Auto) 89.2 H Lymph % (Auto) 6.3 L [place] % (Auto) 4.2 Eos % (Auto) 0.1 Baso % (Auto) 0.2 Neut # (Auto) 15.0 H Lymph # (Auto) 1.1 [place] # (Auto) 0.7 Eos # (Auto) 0.0 Baso # (Auto) 0.0 Neutrophils % (Manual) 85 H Band Neutrophils % 5 H Lymphocytes % (Manual) 6 L Monocytes % (Manual) 4 Platelet Estimate Normal Hypochromasia (manual) Slight Anisocytosis (manual) Slight D-Dimer, Quantitative 341 H pO2 VBG pH VBG pCO2 VBG HCO3 VBG Total CO2 VBG O2 Sat (Calc) VBG Base Excess VBG Potassium Glucose Lactate Sodium 141 Potassium 4.2 Chloride 108 H Carbon Dioxide 22 Anion Gap 15 BUN 23 H Creatinine 1.1 Est GFR ( Amer) > 60 Est GFR (Non-Af Amer) > 60 Random Glucose 133 H Calcium 9.2 Total Bilirubin 0.7 AST 25 ALT 29 Alkaline Phosphatase 78 Total Creatine Kinase CK-MB (Mass) Troponin I 0.0260 NT-Pro-B Natriuret Pep 168 Total Protein 8.0 Albumin 3.8 Globulin 4.2 H Albumin/Globulin Ratio 0.9 L Venous Blood Potassium Urine Color Urine Clarity Urine pH Ur Specific [place] Urine Protein Urine Glucose (UA) Urine Ketones Urine Blood Urine Nitrate Urine Bilirubin Urine Urobilinogen Ur Leukocyte Esterase Urine WBC (Auto) Urine RBC (Auto) Influenza Typ A,B (EIA) 07/31/17 07/31/17 07/31/17 06:10 06:15 06:18 WBC RBC Hgb Hct MCV MCH MCHC RDW Plt Count MPV Neut % (Auto) Lymph % (Auto) [place] % (Auto) Eos % (Auto) Baso % (Auto) Neut # (Auto) Lymph # (Auto) [place] # (Auto) Eos # (Auto) Baso # (Auto) Neutrophils % (Manual) Band Neutrophils % Lymphocytes % (Manual) Monocytes % (Manual) Platelet Estimate Hypochromasia (manual) Anisocytosis (manual) D-Dimer, Quantitative pO2 124 H VBG pH 7.43 VBG pCO2 35 L VBG HCO3 24.5 VBG Total CO2 24.3 VBG O2 Sat (Calc) 99.7 H VBG Base Excess -0.6 L VBG Potassium 3.8 Glucose 132 H Lactate 1.9 Sodium 138.0 Potassium Chloride 108.0 H Carbon Dioxide Anion Gap BUN Creatinine Est GFR ( Amer) Est GFR (Non-Af Amer) Random Glucose Calcium Total Bilirubin AST ALT Alkaline Phosphatase Total Creatine Kinase CK-MB (Mass) Troponin I NT-Pro-B Natriuret Pep Total Protein Albumin Globulin Albumin/Globulin Ratio Venous Blood Potassium 3.8 Urine Color Yellow Urine Clarity Clear Urine pH 5.0 Ur Specific [place] 1.016 Urine Protein Negative Urine Glucose (UA) Normal Urine Ketones Negative Urine Blood Negative Urine Nitrate Negative Urine Bilirubin Negative Urine Urobilinogen Normal Ur Leukocyte Esterase Neg Urine WBC (Auto) 1 Urine RBC (Auto) 1 Influenza Typ A,B (EIA) Negative for flu a/b 07/31/17 07/31/17 11:47 16:47 WBC RBC Hgb Hct MCV MCH MCHC RDW Plt Count MPV Neut % (Auto) Lymph % (Auto) [place] % (Auto) Eos % (Auto) Baso % (Auto) Neut # (Auto) Lymph # (Auto) [place] # (Auto) Eos # (Auto) Baso # (Auto) Neutrophils % (Manual) Band Neutrophils % Lymphocytes % (Manual) Monocytes % (Manual) Platelet Estimate Hypochromasia (manual) Anisocytosis (manual) D-Dimer, Quantitative pO2 VBG pH VBG pCO2 VBG HCO3 VBG Total CO2 VBG O2 Sat (Calc) VBG Base Excess VBG Potassium Glucose Lactate Sodium Potassium Chloride Carbon Dioxide Anion Gap BUN Creatinine Est GFR ( Amer) Est GFR (Non-Af Amer) Random Glucose Calcium Total Bilirubin AST ALT Alkaline Phosphatase Total Creatine Kinase 38 L 44 L CK-MB (Mass) 0.25 Troponin I < 0.0120 NT-Pro-B Natriuret Pep Total Protein Albumin Globulin Albumin/Globulin Ratio Venous Blood Potassium Urine Color Urine Clarity Urine pH Ur Specific [place] Urine Protein Urine Glucose (UA) Urine Ketones Urine Blood Urine Nitrate Urine Bilirubin Urine Urobilinogen Ur Leukocyte Esterase Urine WBC (Auto) Urine RBC (Auto) Influenza Typ A,B (EIA)
[2017-07-31 17:32] LABS: CK-MB 0.24 ng/mL (0.0-3.38)
[2017-08-01] MEDS: Albuterol-Ipratrop 3 mg / 0.5 (3 ml) UD INH SCH ×4 (00:35→11:18)
--- NOTE | 2017-08-01 06:57 | CP.PCM.PN ---
Subjective - Date & Time of Evaluation Date of Evaluation: 08/01/17 Time of Evaluation: 06:57 - Subjective Subjective: Progress Note for Dr. Garcia Patient seen and examined at bedside. Objective - Vital Signs/Intake and Output Vital Signs (last 24 hours): Temp Pulse Resp BP Pulse Ox 98 F 85 20 151/72 H 95 07/31/17 23:05 07/31/17 23:05 07/31/17 23:05 07/31/17 23:05 07/31/17 23:05 Intake and Output: 07/31/17 08/01/17 18:59 06:59 Intake Total 400 800 Balance 400 800 - Medications Medications: Current Medications Albuterol/Ipratropium (Duoneb 3 Mg/0.5 Mg (3 Ml) Ud) 3 ml INH RQ4 [facility] Last Admin: 08/01/17 04:33 Dose: Not Given Enoxaparin Sodium (Lovenox) 40 mg SC DAILY [facility] Last Admin: 07/31/17 09:49 Dose: 40 mg Famotidine (Pepcid) 20 mg PO DAILY [facility] Last Admin: 07/31/17 09:49 Dose: 20 mg Azithromycin 500 mg/ Sodium (Chloride) 250 mls @ 167 mls/hr IVPB Q24H [facility] PRN Reason: Protocol Last Admin: 07/31/17 08:58 Dose: 167 mls/hr Losartan Potassium (Cozaar) 50 mg PO DAILY [facility] Last Admin: 07/31/17 11:34 Dose: 50 mg - Labs Labs: 07/31/17 05:39 07/31/17 05:39 - Additional Findings Additional findings: - Head Exam Head Exam: ATRAUMATIC, NORMAL INSPECTION, NORMOCEPHALIC - Eye Exam Eye Exam: EOMI, Normal appearance - ENT Exam ENT Exam: Mucous Membranes Moist, Normal Exam - Respiratory Exam Respiratory Exam: NORMAL BREATHING PATTERN. absent: Rales, Wheezes, Respiratory Distress - Cardiovascular Exam Cardiovascular Exam: REGULAR RHYTHM, +S1, +S2. absent: Bradycardia, Tachycardia - GI/Abdominal Exam GI & Abdominal Exam: Soft. absent: Tenderness - Extremities Exam Extremities exam: Positive for: full ROM Additional comments: Left leg edema, non-pitting. surgical scar lateral mid-tibia. - Back Exam Back exam: FULL ROM, NORMAL INSPECTION - Neurological Exam Neurological exam: CN II-XII Intact, Normal Gait - Psychiatric Exam Psychiatric exam: Normal Affect, Normal Mood - Skin Skin Exam: Dry, Intact, Normal Color, Warm Assessment and Plan - Assessment and Plan (Free Text) Assessment: 57M with past medical history of HTN, hep C, left lower leg cellulitis history, resolved presents with chest pain, cough. asthma exacerbation, chest pain, ACS r/o LU negative x 3 duonebs Q6H PRN Solumedrol 40mg IV Q8H Zithromycin 500mg Q24H Leukocytosis monitor CBC Zithromycin 500 mg Q24H Hx of HTN Cozaar 50mg POQD hx of lower extremity cellulitis ddimer 341 f/u lower extremity duplex Phyllis Archuleta DO PGY1
[2017-08-01] MEDS: Azithromycin 500 MG in Sodium Chloride 0.9% 250 ML IVPB SCH (08:27)
[2017-08-01] MEDS: Enoxaparin 40 mg Syringe SC SCH (10:00)
[2017-08-01 11:36] LABS: BASO % 0.1 % (0.0-2.0); EOS % 0.3 % (0.0-4.0); HEMOGLOBIN 12.3 g/dL (12.0-18.0); LYMPH % 12.9 % (20.0-40.0); MEAN CELL VOLUME 87.6 fL (80.0-94.0); MEAN CORPUSCULAR HEMOGLOBIN 29.4 pg (27.0-31.0); MEAN CORPUSCULAR HGB CONC 33.5 g/dL (33.0-37.0); MEAN PLATELET VOLUME 9.5 fL (7.2-11.7); MONO # 0.7 K/uL (0.0-0.8); MONO % 4.3 % (0.0-10.0); NEUT # 12.7 K/uL (1.8-7.0); NEUT % 82.4 % (50.0-75.0); RBC 4.17 Mil/uL (4.40-5.90); RED CELL DISTRIBUTION WIDTH 13.7 % (11.5-14.5); WHITE BLOOD COUNT 15.4 K/uL (4.8-10.8)
[2017-08-01 11:59] LABS: ALBUMIN 4.2 g/dL (3.5-5.0); ALT/SGPT 9 U/L (21-72); AST/SGOT 19 U/L (17-59); BLOOD UREA NITROGEN 28 mg/dL (9-20); CALCIUM 8.8 mg/dl (8.6-10.4); GFR AFRICAN-AMERICAN > 60; GFR NON-AFRICAN AMERICAN > 60
--- NOTE | 2017-08-01 12:17 | CARD ---
APPROVED REPORT EKG Measurement Heart [id number] <Conclusion> Sinus tachycardia Possible Inferior infarct, age undetermined Abnormal ECG
--- NOTE | 2017-08-01 14:30 | CP.PCM.DIS ---
Provider - Provider Date of Admission: 07/31/17 06:28 Attending physician: Chase Garcia Jr, MD Consults: Dr. Pack Time Spent in preparation of Discharge (in minutes): 35 Hospital Course - Lab Results Lab Results: Micro Results 07/31/17 08:28 Blood Blood Culture - Preliminary NO GROWTH AFTER 24 HOURS 07/31/17 08:28 Blood Blood Culture - Preliminary NO GROWTH AFTER 24 HOURS Most Recent Lab Values WBC 15.4 K/uL (4.8-10.8) H 08/01/17 11:27 RBC 4.17 Mil/uL (4.40-5.90) L 08/01/17 11:27 Hgb 12.3 g/dL (12.0-18.0) 08/01/17 11:27 Hct 36.6 % (35.0-51.0) 08/01/17 11:27 MCV 87.6 fL (80.0-94.0) 08/01/17 11:27 MCH 29.4 pg (27.0-31.0) 08/01/17 11:27 MCHC 33.5 g/dL (33.0-37.0) 08/01/17 11:27 RDW 13.7 % (11.5-14.5) 08/01/17 11:27 Plt Count 176 K/uL (130-400) 08/01/17 11:27 MPV 9.5 fL (7.2-11.7) 08/01/17 11:27 Neut % (Auto) 82.4 % (50.0-75.0) H 08/01/17 11:27 Lymph % (Auto) 12.9 % (20.0-40.0) L 08/01/17 11:27 Woodruff % (Auto) 4.3 % (0.0-10.0) 08/01/17 11:27 Eos % (Auto) 0.3 % (0.0-4.0) 08/01/17 11: Baso % (Auto) 0.1 % (0.0-2.0) 08/01/17 11:27 Neut # (Auto) 12.7 K/uL (1.8-7.0) H 08/01/17 11:27 Lymph # (Auto) 2.0 K/uL (1.0-4.3) 08/01/17 11:27 Woodruff # (Auto) 0.7 K/uL (0.0-0.8) 08/01/17 11:27 Eos # (Auto) 0.0 K/uL (0.0-0.7) 08/01/17 11:27 Baso # (Auto) 0.0 K/uL (0.0-0.2) 08/01/17 11:27 Neutrophils % (Manual) 85 % (50-75) H 07/31/17 05:39 Band Neutrophils % 5 % (0-2) H 07/31/17 05:39 Lymphocytes % (Manual) 6 % (20-40) L 07/31/17 05:39 Monocytes % (Manual) 4 % (0-10) 07/31/17 05:39 Platelet Estimate Normal (NORMAL) 07/31/17 05:39 Hypochromasia (manual) Slight 07/31/17 05:39 Anisocytosis (manual) Slight 07/31/17 05:39 APTT 35 SECONDS (21-34) H 08/01/17 07:38 D-Dimer, Quantitative 341 ng/mlDDU (0-243) H 07/31/17 05:39 pO2 124 mm/Hg (30-55) H 07/31/17 06:15 VBG pH 7.43 (7.32-7.43) 07/31/17 06:15 VBG pCO2 35 mmHg (40-60) L 07/31/17 06:15 VBG HCO3 24.5 mmol/L 07/31/17 06:15 VBG Total CO2 24.3 mmol/L (22-28) 07/31/17 06:15 VBG O2 Sat (Calc) 99.7 % (40-65) H 07/31/17 06:15 VBG Base Excess -0.6 mmol/L (0.0-2.0) L 07/31/17 06:15 VBG Potassium 3.8 mmol/L (3.6-5.2) 07/31/17 06:15 Sodium 138.0 mmol/l (132-148) 07/31/17 06:15 Chloride 108.0 mmol/L (98-107) H 07/31/17 06:15 Glucose 132 mg/dl (75-110) H 07/31/17 06:15 Lactate 1.9 mmol/L (0.7-2.1) 07/31/17 06:15 Sodium 145 mmol/L (132-148) 08/01/17 11:27 Potassium 3.6 mmol/L (3.6-5.2) 08/01/17 11:27 Chloride 111 mmol/L (98-107) H 08/01/17 11:27 Carbon Dioxide 22 mmol/L (22-30) 08/01/17 11:27 Anion Gap 15 (10-20) 08/01/17 11:27 BUN 28 mg/dL (9-20) H 08/01/17 11:27 Creatinine 1.1 mg/dL (0.8-1.5) 08/01/17 11:27 Est GFR ( Amer) > 60 08/01/17 11:27 Est GFR (Non-Af Amer) > 60 08/01/17 11:27 Random Glucose 141 mg/dL (75-110) H 08/01/17 11:27 Calcium 8.8 mg/dl (8.6-10.4) 08/01/17 11:27 Phosphorus 1.8 mg/dL (2.5-4.5) L 08/01/17 11:27 Magnesium 1.9 mg/dL (1.6-2.3) 08/01/17 11:27 Total Bilirubin 0.4 mg/dL (0.2-1.3) 08/01/17 11:27 AST 19 U/L (17-59) 08/01/17 11:27 ALT 9 U/L (21-72) L D 08/01/17 11:27 Alkaline Phosphatase 74 U/L (38-126) 08/01/17 11:27 Total Creatine Kinase 44 U/L (55-170) L 07/31/17 16:47 CK-MB (Mass) 0.24 ng/mL (0.0-3.38) 07/31/17 16:47 Troponin I < 0.0120 ng/mL (0.00-0.120) 07/31/17 16:47 NT-Pro-B Natriuret Pep 168 pg/mL (0-900) 07/31/17 05:39 Total Protein 8.5 g/dL (6.3-8.3) H 08/01/17 11:27 Albumin 4.2 g/dL (3.5-5.0) 08/01/17 11:27 Globulin 4.3 gm/dL (2.2-3.9) H 08/01/17 11:27 Albumin/Globulin Ratio 1.0 (1.0-2.1) 08/01/17 11:27 Venous Blood Potassium 3.8 mmol/L (3.6-5.2) 07/31/17 06:15 Urine Color Yellow (YELLOW) 07/31/17 06:18 Urine Clarity Clear (Clear) 07/31/17 06:18 Urine pH 5.0 (5.0-8.0) 07/31/17 06:18 Ur Specific Smyer 1.016 (1.003-1.030) 07/31/17 06:18 Urine Protein Negative mg/dL (NEGATIVE) 07/31/17 06:18 Urine Glucose (UA) Normal mg/dL (Normal) 07/31/17 06:18 Urine Ketones Negative mg/dL (NEGATIVE) 07/31/17 06:18 Urine Blood Negative (NEGATIVE) 07/31/17 06:18 Urine Nitrate Negative (NEGATIVE) 07/31/17 06:18 Urine Bilirubin Negative (NEGATIVE) 07/31/17 06:18 Urine Urobilinogen Normal mg/dL (0.2-1.0) 07/31/17 06:18 Ur Leukocyte Esterase Neg Nancy/uL (Negative) 07/31/17 06:18 Urine WBC (Auto) 1 /hpf (0-5) 07/31/17 06:18 Urine RBC (Auto) 1 /hpf (0-3) 07/31/17 06:18 Influenza Typ A,B (EIA) Negative for flu a/b (NEGATIVE) 07/31/17 06:10 - Hospital Course Hospital Course: CC: short of breath HPI: 57 year old male with past medical history of asthma, left leg cellulitis, cirrhosis, hepatitis C who presents to the ED for shortness of breath and chest pain. Chest pain is midsternal and is on the right chest. Patient states he woke up this morning feeling like there is pressure on his midsternum. He said he hasn't had this feeling before. Patient states he has a headache. Patient denies fever, chills, nausea, vomiting, diarrhea, constipation. Patient states the pain is an 8/10 and nothing makes it better or worse. Patient admits to a cough with phlegm this morning. Before today, patient did not have a cough recently. Patient was seen on 04/10/17 for shortness of breath and sent home on Fluticasone/Salmeterol 500/50 [Advair Diskus 500/50] 1 puff INH RQ12 #1 inhaler , Mask, Face [Nebulizer Aerosol Mask Adult] 1 dev XX PRN 30 Days #1 dev, Nebulizer [Altera Nebulizer] 1 each MC Q6 #1 each Patient's d-dimer was elevated at 341 saturation 97% to 95 % on room air. Left lower extremity duplex order negative for DVT. Patient was treated with azithromycin and duonebs. Patient states marked improvement. Patient remained afebrile with leukocytosis downtrending. Patient discharged on Azithromycin 500mg QD advair diskus Cozaar 50 mg PO QD - Date & Time of H&P Date of H&P: 08/01/17 Time of H&P: 14:42 Discharge Exam - Head Exam Head Exam: ATRAUMATIC, NORMAL INSPECTION, NORMOCEPHALIC - Respiratory Exam Respiratory Exam: NORMAL BREATHING PATTERN Additional comments: mild wheezing, no rales, rhonchi - Cardiovascular Exam Cardiovascular Exam: REGULAR RHYTHM, +S1, +S2 - GI/Abdominal Exam GI & Abdominal Exam: Soft. absent: Tenderness - Extremities Exam Extremities exam: full ROM, normal capillary refill - Back Exam Back exam: FULL ROM, NORMAL INSPECTION - Neurological Exam Neurological exam: CN II-XII Intact, Normal Gait, Oriented x3 - Skin Skin Exam: Dry, Intact, Normal Color, Warm Discharge Plan - Discharge Medications Prescriptions: Azithromycin 500 mg PO DAILY #5 tablet Fluticasone/Salmeterol 500/50 [Advair Diskus] 1 puff IH Q12 7 Days #1 puff Losartan [Cozaar] 50 mg PO DAILY #14 tab - Follow Up Plan Condition: STABLE Disposition: HOME/ ROUTINE Instructions: Asthma in Adults Additional Instructions: Patient to take antibiotics as directed Patient to take medrol dose pack as directed Patient to take advair as directed Patient to follow up with Dr. Holden in 1 week Referrals: Wesley Pack MD [Staff Provider] -
[2017-08-01 15:30] VITALS: BP 145/75; PULSE 82; TEMP 97.9; O2SAT 95
--- NOTE | 2017-08-01 15:32 | CP.PCM.PN ---
Subjective - Date & Time of Evaluation Date of Evaluation: 08/01/17 Time of Evaluation: 10:00 - Subjective Subjective: Patient seen and examined at bedside today Patient resting comfortably in bed in no distress. Patient denies chest pain or shortness of breath. He complains of hearing wheezing at times. He reports feeling much better than yesterday. Edema and erythema still present on left lower extremity. He denies pain. Assessment/Plan: 1. Asthma Exacerbation, Improving - Chest XR 07/31/2017: Impression no active disease. - Continue Nebulizer 2. Left Leg Edema, possible Cellulitis - Venous Doppler 07/31/2017: No evidence of deep or superficial vein thrombosis of left lower extremity with excellent venous flow. - Continue Azithromycin 3. Hypertension - Management per primary team Objective - Vital Signs/Intake and Output Vital Signs (last 24 hours): Temp Pulse Resp BP Pulse Ox 97.9 F 82 20 145/75 95 08/01/17 15:29 08/01/17 15:29 08/01/17 15:29 08/01/17 15:29 08/01/17 15:29 Intake and Output: 08/01/17 08/01/17 06:59 18:59 Intake Total 800 Balance 800 - Medications Medications: Current Medications Albuterol/Ipratropium (Duoneb 3 Mg/0.5 Mg (3 Ml) Ud) 3 ml INH RQ4 [facility] Last Admin: 08/01/17 11:18 Dose: 3 ml Enoxaparin Sodium (Lovenox) 40 mg SC DAILY [facility] Last Admin: 08/01/17 10:00 Dose: Not Given Famotidine (Pepcid) 20 mg PO DAILY [facility] Last Admin: 08/01/17 10:00 Dose: 20 mg Azithromycin 500 mg/ Sodium (Chloride) 250 mls @ 167 mls/hr IVPB Q24H [facility] PRN Reason: Protocol Last Admin: 08/01/17 08:27 Dose: 167 mls/hr Losartan Potassium (Cozaar) 50 mg PO DAILY [facility] Last Admin: 08/01/17 10:01 Dose: 50 mg - Labs Labs: 08/01/17 11:27 08/01/17 11:27 APTT 35 SECONDS (21-34) H 08/01/17 07:38
== END 2017-08-01 15:49 | disposition home or self-care (01) | DRG 96 ==
LOC: C.ER 04:17 → C.9E 06:28 → C.5S 07:01
PROVIDERS: ADMIT Internal Medicine; ATTEND Internal Medicine
DX: J45.901 Unspecified asthma with (acute) exacerbation (principal); K74.60 Unspecified cirrhosis of liver; I10 Essential (primary) hypertension; D72.829 Elevated white blood cell count, unspecified; Z79.51 Long term (current) use of inhaled steroids; F17.210 Nicotine dependence, cigarettes, uncomplicated; R60.0 Localized edema

== ENCOUNTER 2017-08-20 20:15 | Inpatient (IN) | payer MEDICAID ==
[2017-08-20 20:15] VITALS: BMI 40.4
[2017-08-20] MEDS ORDERED: Albuterol-Ipratrop 3 mg / 0.5 (3 ml) UD IH STA (20:27)
[2017-08-20 20:35] LABS: BASO % 0.3 % (0.0-2.0); EOS % 0.3 % (0.0-4.0); HEMOGLOBIN 12.5 g/dL (12.0-18.0); LYMPH # 1.4 K/uL (1.0-4.3); LYMPH % 7.7 % (20.0-40.0); MEAN CELL VOLUME 86.3 fL (80.0-94.0); MEAN CORPUSCULAR HEMOGLOBIN 28.9 pg (27.0-31.0); MEAN CORPUSCULAR HGB CONC 33.5 g/dL (33.0-37.0); MONO # 0.6 K/uL (0.0-0.8); MONO % 3.1 % (0.0-10.0); NEUT # 15.7 K/uL (1.8-7.0); NEUT % 88.6 % (50.0-75.0); PLATELET COUNT 189 K/uL (130-400); RBC 4.33 Mil/uL (4.40-5.90); RED CELL DISTRIBUTION WIDTH 13.5 % (11.5-14.5); WHITE BLOOD COUNT 17.7 K/uL (4.8-10.8)
[2017-08-20 20:48] LABS: INR 1.3; PROTHROMBIN TIME 13.9 SECONDS (9.7-12.2)
[2017-08-20 20:50] LABS: ALB/GLOB RATIO 0.9 (1.0-2.1); ALBUMIN 3.8 g/dL (3.5-5.0); ALT/SGPT 22 U/L (21-72); AST/SGOT 21 U/L (17-59); BLOOD UREA NITROGEN 30 mg/dL (9-20); CALCIUM 9.4 mg/dl (8.6-10.4); GFR AFRICAN-AMERICAN > 60; GFR NON-AFRICAN AMERICAN > 60
[2017-08-20 21:00] LABS: B-TYPE NATRIURETIC PEPTIDE 86.5 pg/mL (0-900)
[2017-08-20 21:03] LABS: CK-MB < 0.22 ng/mL (0.0-3.38)
[2017-08-20 21:10] LABS: BANDS 4 % (0-2); LYMPHOCYTE 6 % (20-40); METAMYELOCYTE 1 % (0-0); MONOCYTE 1 % (0-10); NEUTROPHIL 88 % (50-75); PLATELET ESTIMATE NORMAL (NORMAL); TOTAL CELLS COUNTED 100
--- NOTE | 2017-08-20 22:00 | C.PDOC ---
History Of Present Illness 57 y/o M c PMHx COPD BIBEMS for chest pain and shortness of breath x 5 hours. Patient states he was sitting outside by levin all day and when he returned home , he felt a shooting pain from the L lower leg up to the chest associated with dyspnea. He states the dyspnea is similar to his COPD and he was given 1 duoneb en route and was found to have wheezing. Patient notes he has L lower leg cellulitis and is being treated for it and his L leg swelling is baseline. Denies fever, chills, vomiting, diarrhea, numbness. Time Seen by Provider: 08/20/17 20:19 Chief Complaint (Nursing): Chest Pain Past Medical History Vital Signs: Last Vital Signs Temp 99.5 F 08/20/17 20:16 Pulse 112 H 08/20/17 20:16 Resp 20 08/20/17 20:40 BP 134/62 08/20/17 20:16 Pulse Ox 96 08/20/17 22:01 - Medical History PMH: Asthma, COPD, HTN, Pneumonia Denies: Chronic Kidney Disease - [employer] Procedures DX ULTRASOUND-HEART (07/13/12) Family History: States: Unknown Family Hx - Social History Hx Tobacco Use: Yes Hx Alcohol Use: No Hx Substance Use: No (Former) - Immunization History Hx Tetanus Toxoid Vaccination: Yes Hx Influenza Vaccination: Yes Hx Pneumococcal Vaccination: Yes Review Of Systems Except As Marked, All Systems Reviewed And Found Negative. Constitutional: Negative for: Fever Gastrointestinal: Negative for: Vomiting Physical Exam - Physical Exam Additional Physical Exam Comments: Gen: Appears short of breath Head: NC/AT Eyes: No scleral icterus ENT: MMM Neck: Supple Chest: Reproducible tenderness CV: tachycardic Lungs: Diffuse wheezing Abd: Soft, obese Extremities: L lower leg edema Skin: L lower leg indurated and erythematous Neuro: Alert ED Course And Treatment - Laboratory Results Result Diagrams: 08/20/17 20:32 08/20/17 20:32 O2 Sat by Pulse Oximetry: 96 Medical Decision Making Medical Decision Making: EKG Sinus rhythm, 110 bpm, no ST elevations IMPRESSION: 1. No definite CT evidence of pulmonary embolism. 2. Right lower lobe atelectasis versus early pneumonia. Follow up to resolution. 3. Incidental/non-acute findings are described above. Started antibiotics for cellultiis and pneumonia. Dr. David accepts patient to medical service. Disposition Discussed With : Naseem David Doctor Will See Patient In The: Hospital - Disposition Disposition: HOSPITALIZED Disposition Time: 22:31 Condition: GUARDED Forms: [facility] (Japanese) - POA Core Measure Indicators: Pneumonia - Clinical Impression Clinical Impression: Chest pain, Cellulitis of left leg, Pneumonia, COPD exacerbation
--- NOTE | 2017-08-20 22:21 | CT ---
EXAM: CT Angiography Chest With Intravenous Contrast CLINICAL HISTORY: 57 years old, male; Pain; Chest pain; Type not specified; Additional info: Dyspnea, chest pain, swollen leg, tachy TECHNIQUE: Axial computed tomographic angiography images of the chest with intravenous contrast using pulmonary embolism protocol. All CT scans at this facility use one or more dose reduction techniques, viz.: automated exposure control; ma/kV adjustment per patient size (including targeted exams where dose is matched to indication; i.e. head); or iterative reconstruction technique. MIP reconstructed images were created and reviewed. Coronal and sagittal reformatted images were created and reviewed. CONTRAST: 100 mL of [id number] administered intravenously. COMPARISON: No relevant prior studies available. FINDINGS: Limitations: Streak artifact - mild. Motion artifact - mild. Suboptimal timing of bolus. Pulmonary arteries: No definite pulmonary embolism. Aorta: Minimal atherosclerotic disease. No aneurysm. Lungs: Minimal atelectasis. Minimal focal patchy nodular airspace disease posterior right lower lobe. Pleural space: No significant effusion. No pneumothorax. Heart: No cardiomegaly. No significant pericardial effusion. Bones/joints: No acute fracture. Soft tissues: Unremarkable. Lymph nodes: No pathologically enlarged lymph nodes. Gallbladder and bile ducts: Calcified gallstones. Spleen: Mildly enlarged. Upper abdomen: Elevated RIGHT hemidiaphragm. IMPRESSION: 1. No definite CT evidence of pulmonary embolism. 2. Right lower lobe atelectasis versus early pneumonia. Follow up to resolution. 3. Incidental/non-acute findings are described above.
[2017-08-20] MEDS ORDERED: Vancomycin 1 gm/NS 200 ml 1 GM/200 ML BAG IVPB STA (22:27)
[2017-08-20] MEDS ORDERED: Cefepime 1 GM in Sodium Chloride 0.9% 50 ML IVPB ONE (22:27)
[2017-08-20] MEDS ORDERED: Cefepime IV 1 gm in Dextrose 1 GM/50 ML BAG IVPB ONE (22:45)
[2017-08-20] MEDS ORDERED: Cefepime IV 1 gm in Dextrose 1 GM/50 ML BAG IVPB SCH (22:45)
--- NOTE | 2017-08-20 22:46 | CP.PCM.HP ---
<Phyllis Archuleta - Last Filed: 08/21/17 01:04> History of Present Illness - History of Present Illness History of Present Illness: CC: short of breath HPI: 57 year old male with past medical history of asthma, left leg cellulitis, cirrhosis, hepatitis C who presents to the ED for shortness of breath for 5 hours prior to being brought in by EMS. Patient states he was sitting outside by the levin all day and felt a shooting pain from left lower leg up to chest with dysnpea. Patient states notes that he has left lower leg celluitis, which is at baseline. Patient denies fever, cough, chills, vomiting, diarrhea, numbness. Past Medical History: Asthma, left leg cellulitis, cirrhosis (2001), hepatitis C (2001) Past Surgical History: tumor removal of left leg by Dr. 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 Allergies: NKDA PMD: Dr. Holden Present on Admission - Present on Admission Any Indicators Present on Admission: No History of DVT/PE: No History of Uncontrolled Diabetes: No Urinary Catheter: No Decubitus Ulcer Present: No Review of Systems - Review of Systems All systems: reviewed and no additional remarkable complaints except Past Patient History - Infectious Disease Hx of Infectious Diseases: None - Past Medical History & Family History Past Medical History?: Yes - Past Social History Smoking Status: Light Smoker < 10 Cigarettes Daily - CARDIAC Hx Hypertension: Yes - PULMONARY Hx Asthma: Yes Hx Chronic Obstructive Pulmonary Disease (COPD): Yes Hx Pneumonia: Yes - NEUROLOGICAL Hx Neurological Disorder: No - HEENT Hx HEENT Problems: No - RENAL Hx Chronic Kidney Disease: No - ENDOCRINE/METABOLIC Hx Endocrine Disorders: No - HEMATOLOGICAL/ONCOLOGICAL Hx Blood Disorders: Yes Hx Cirrhosis: Yes Hx Hepatitis C: Yes - INTEGUMENTARY Hx Dermatological Problems: Yes Hx Cellulitis: Yes (left leg) - MUSCULOSKELETAL/RHEUMATOLOGICAL Hx Musculoskeletal Disorders: No - GASTROINTESTINAL Hx Gastrointestinal Disorders: No - GENITOURINARY/GYNECOLOGICAL Hx Genitourinary Disorders: No - PSYCHIATRIC Hx Substance Use: No (Former) - SURGICAL HISTORY Hx Surgeries: Yes Other/Comment: Biopsy to left lower leg 2017 - ANESTHESIA Hx Anesthesia: Yes Meds Allergies/Adverse Reactions: Allergies Allergy/AdvReac Type Severity Reaction Status Date / Time No Known Allergies Allergy Verified 08/20/17 20:23 Physical Exam - Constitutional Appears: Non-toxic, No Acute Distress - Head Exam Head Exam: NORMAL INSPECTION, NORMOCEPHALIC - Eye Exam Eye Exam: EOMI, Normal appearance - ENT Exam ENT Exam: Mucous Membranes Moist, Normal Exam - Neck Exam Neck exam: Positive for: Normal Inspection - Respiratory Exam Respiratory Exam: Clear to Auscultation Bilateral, NORMAL BREATHING PATTERN. absent: Accessory Muscle Use - Cardiovascular Exam Cardiovascular Exam: REGULAR RHYTHM, +S1, +S2 - GI/Abdominal Exam GI & Abdominal Exam: Normal Bowel Sounds, Soft. absent: Tenderness - Extremities Exam Extremities exam: Positive for: full ROM Additional comments: left leg cellulitis with edema left lateral tibial scar - Back Exam Back exam: absent: CVA tenderness (L), CVA tenderness (R) - Neurological Exam Neurological exam: Alert, CN II-XII Intact, Oriented x3 - Psychiatric Exam Psychiatric exam: Normal Affect, Normal Mood - Skin Skin Exam: Dry, Intact, Warm Results - Vital Signs Recent Vital Signs: Last Vital Signs Temp 99.5 F 08/20/17 20:16 Pulse 112 H 08/20/17 20:16 Resp 20 08/20/17 20:40 BP 134/62 08/20/17 20:16 Pulse Ox 96 08/20/17 22:32 - Labs Result Diagrams: 08/20/17 20:32 08/20/17 20:32 Labs: Laboratory Results - last 24 hr 08/20/17 08/20/17 08/20/17 20:32 20:32 20:32 WBC 17.7 H RBC 4.33 L Hgb 12.5 Hct 37.4 MCV 86.3 MCH 28.9 MCHC 33.5 RDW 13.5 Plt Count 189 MPV 9.0 Neut % (Auto) 88.6 H Lymph % (Auto) 7.7 L [place] % (Auto) 3.1 Eos % (Auto) 0.3 Baso % (Auto) 0.3 Neut # (Auto) 15.7 H Lymph # (Auto) 1.4 [place] # (Auto) 0.6 Eos # (Auto) 0.0 Baso # (Auto) 0.0 Neutrophils % (Manual) 88 H Band Neutrophils % 4 H Lymphocytes % (Manual) 6 L Monocytes % (Manual) 1 Metamyelocytes % 1 H Platelet Estimate Normal PT 13.9 H INR 1.3 APTT 34 Sodium 141 Potassium 3.8 Chloride 104 Carbon Dioxide 25 Anion Gap 16 BUN 30 H Creatinine 1.1 Est GFR ( Amer) > 60 Est GFR (Non-Af Amer) > 60 Random Glucose 138 H Calcium 9.4 Total Bilirubin 0.5 AST 21 ALT 22 Alkaline Phosphatase 87 Total Creatine Kinase 44 L CK-MB (Mass) < 0.22 Troponin I 0.0140 NT-Pro-B Natriuret Pep 86.5 Total Protein 8.2 Albumin 3.8 Globulin 4.4 H Albumin/Globulin Ratio 0.9 L Assessment & Plan - Assessment and Plan (Free Text) Assessment: 57M with past medical history of HTN, hep C, left lower leg cellulitis history, resolved presents with chest pain, cough. asthma exacerbation,ACS r/o, leukocytosis LU negative x 1 in ED: Cefepime, Vancomycin duonebs Q6H PRN Solumedrol 40mg IV Q8H Cefepime Vancomycin Hx of HTN Cozaar 50mg POQD hx of lower extremity cellulitis, stable non-pitting edema prior duplex negative for DVT Prophylaxis: DVT: Heparin 5000 SC Q8H Phyllis Archuleta DO PGY1 - Date & Time Date: 08/20/17 Time: 22:56 <Naseem David - Last Filed: 08/21/17 06:32> Results - Vital Signs Recent Vital Signs: Last Vital Signs Temp 98.9 F 08/21/17 03:51 Pulse 88 08/21/17 03:51 Resp 17 08/21/17 03:51 BP 147/71 08/21/17 03:51 Pulse Ox 98 08/21/17 03:51 - Labs Result Diagrams: 08/21/17 03:06 08/21/17 03:06 Labs: Laboratory Results - last 24 hr 08/20/17 08/20/17 08/20/17 20:32 20:32 20:32 WBC 17.7 H RBC 4.33 L Hgb 12.5 Hct 37.4 MCV 86.3 MCH 28.9 MCHC 33.5 RDW 13.5 Plt Count 189 MPV 9.0 Neut % (Auto) 88.6 H Lymph % (Auto) 7.7 L [place] % (Auto) 3.1 Eos % (Auto) 0.3 Baso % (Auto) 0.3 Neut # (Auto) 15.7 H Lymph # (Auto) 1.4 [place] # (Auto) 0.6 Eos # (Auto) 0.0 Baso # (Auto) 0.0 Neutrophils % (Manual) 88 H Band Neutrophils % 4 H Lymphocytes % (Manual) 6 L Monocytes % (Manual) 1 Metamyelocytes % 1 H Platelet Estimate Normal PT 13.9 H INR 1.3 APTT 34 Sodium 141 Potassium 3.8 Chloride 104 Carbon Dioxide 25 Anion Gap 16 BUN 30 H Creatinine 1.1 Est GFR ( Amer) > 60 Est GFR (Non-Af Amer) > 60 Random Glucose 138 H Calcium 9.4 Phosphorus Magnesium Total Bilirubin 0.5 AST 21 ALT 22 Alkaline Phosphatase 87 Total Creatine Kinase 44 L CK-MB (Mass) < 0.22 Troponin I 0.0140 NT-Pro-B Natriuret Pep 86.5 Total Protein 8.2 Albumin 3.8 Globulin 4.4 H Albumin/Globulin Ratio 0.9 L 08/21/17 08/21/17 08/21/17 03:06 03:06 03:06 WBC 13.9 H RBC 4.16 L Hgb 12.1 Hct 36.3 MCV 87.1 MCH 29.0 MCHC 33.3 RDW 13.6 Plt Count 165 MPV 8.8 Neut % (Auto) 93.7 H Lymph % (Auto) 5.1 L [place] % (Auto) 1.1 Eos % (Auto) 0.0 Baso % (Auto) 0.1 Neut # (Auto) 13.0 H Lymph # (Auto) 0.7 L [place] # (Auto) 0.2 Eos # (Auto) 0.0 Baso # (Auto) 0.0 Neutrophils % (Manual) 94 H Band Neutrophils % 2 Lymphocytes % (Manual) 3 L Monocytes % (Manual) 1 Metamyelocytes % Platelet Estimate Normal PT INR APTT Sodium 141 Potassium 4.0 Chloride 105 Carbon Dioxide 27 Anion Gap 14 BUN 31 H Creatinine 1.2 Est GFR ( Amer) > 60 Est GFR (Non-Af Amer) > 60 Random Glucose 228 H Calcium 9.3 Phosphorus 1.6 L Magnesium 1.8 Total Bilirubin 0.8 AST 21 ALT 19 L Alkaline Phosphatase 69 Total Creatine Kinase 25 L 27 L CK-MB (Mass) < 0.22 < 0.22 Troponin I < 0.0120 < 0.0120 NT-Pro-B Natriuret Pep Total Protein 8.1 Albumin 4.2 Globulin 3.9 Albumin/Globulin Ratio 1.1 Assessment & Plan - Date & Time Date: 08/21/17 (I have seen and examined the patient. I agree with the findings and plan of care as documented by Dr. Archuleta. Patient with asthma exacerbation. Also complaining of Chest pain. Possible pneumonia. Cefepime and Vanco started in ED. Should also provide adequate coverage for ongoing issue of cellulitis. ROMIx3 with EKG. Aspirin and Statin. Nebs, oxygen, solumedrol. Monitor for acute changes.) Time: 06:30 Attending/Attestation - Attestation I have personally seen and examined this patient.: Yes I have fully participated in the care of the patient.: Yes I have reviewed all pertinent clinical information: Yes
[2017-08-20] MEDS ORDERED: Albuterol-Ipratrop 3 mg / 0.5 (3 ml) UD INH PRN (22:55)
[2017-08-21 03:11] LABS: BASO % 0.1 % (0.0-2.0); HEMOGLOBIN 12.1 g/dL (12.0-18.0); LYMPH # 0.7 K/uL (1.0-4.3); LYMPH % 5.1 % (20.0-40.0); MEAN CELL VOLUME 87.1 fL (80.0-94.0); MEAN CORPUSCULAR HGB CONC 33.3 g/dL (33.0-37.0); MEAN PLATELET VOLUME 8.8 fL (7.2-11.7); MONO # 0.2 K/uL (0.0-0.8); MONO % 1.1 % (0.0-10.0); NEUT % 93.7 % (50.0-75.0); PLATELET COUNT 165 K/uL (130-400); RBC 4.16 Mil/uL (4.40-5.90); RED CELL DISTRIBUTION WIDTH 13.6 % (11.5-14.5); WHITE BLOOD COUNT 13.9 K/uL (4.8-10.8)
[2017-08-21 03:31] LABS: ALB/GLOB RATIO 1.1 (1.0-2.1); ALBUMIN 4.2 g/dL (3.5-5.0); ALT/SGPT 19 U/L (21-72); AST/SGOT 21 U/L (17-59); BLOOD UREA NITROGEN 31 mg/dL (9-20); CALCIUM 9.3 mg/dl (8.6-10.4); GFR AFRICAN-AMERICAN > 60; GFR NON-AFRICAN AMERICAN > 60
[2017-08-21 03:39] LABS: CK-MB < 0.22 ng/mL (0.0-3.38)
[2017-08-21 03:57] LABS: BANDS 2 % (0-2); LYMPHOCYTE 3 % (20-40); MONOCYTE 1 % (0-10); NEUTROPHIL 94 % (50-75); PLATELET ESTIMATE NORMAL (NORMAL); TOTAL CELLS COUNTED 100
[2017-08-21] MEDS: MethylPREDNISolone 40 mg Vial IVP SCH ×3 (06:03→21:19)
--- NOTE | 2017-08-21 07:57 | CP.PCM.PN ---
<Brii Burgess - Last Filed: 08/21/17 17:28> Subjective - Date & Time of Evaluation Date of Evaluation: 08/21/17 Time of Evaluation: 07:00 - Subjective Subjective: Medicine Progress Note: Patient was seen and examined at bedside in the AM. Patient states his breathing was slightly better than when he was admitted to the hospital. Patient states he does smoke about 5 cigarettes per day. Patient does state in the past he has used heroin IV but has not used in the past few years. He states he was previously treated for Hepatitis C and was diagnosed with liver cirrhosis which he is being worked up as an out patient. He states he has never has an abdominal ultrasound. He also states he has never had a sleep study done and does not use a CPAP machine or oxygen at home. He states he does not see a pulmonolgist or bakery assistant as an outpatient. He states he only see his primary care physician Dr. Holden. Patient states he sometimes uses a cane or a rolling walker at home. Objective - Vital Signs/Intake and Output Vital Signs (last 24 hours): Temp Pulse Resp BP Pulse Ox 98.9 F 88 17 147/71 98 08/21/17 03:51 08/21/17 03:51 08/21/17 03:51 08/21/17 03:51 08/21/17 03:51 Intake and Output: 08/21/17 08/21/17 06:59 18:59 Intake Total 240 Balance 240 - Medications Medications: Current Medications Albuterol/Ipratropium (Duoneb 3 Mg/0.5 Mg (3 Ml) Ud) 3 ml INH RQ4 PRN PRN Reason: Shortness of Breath Cefepime HCl (Maxipime Iv 1 Gm Premix) 1 gm in 50 mls @ 100 mls/hr IVPB Q24H [facility] PRN Reason: Protocol Vancomycin/Sodium Chloride (Vancomycin 1 Gm/Ns 200 Ml) 1 gm in 200 mls @ 133.333 mls/hr IVPB Q24H [facility] PRN Reason: Protocol Stop: 08/26/17 08:01 Ketorolac Tromethamine (Toradol) 30 mg IVP Q6 [facility] Last Admin: 08/21/17 05:59 Dose: 30 mg Losartan Potassium (Cozaar) 50 mg PO DAILY [facility] Methylprednisolone (Solu-Medrol) 40 mg IVP Q8 [facility] Last Admin: 08/21/17 06:03 Dose: 40 mg - Labs Labs: 08/21/17 03:06 08/21/17 03:06 PT 13.9 SECONDS (9.7-12.2) H 08/20/17 20:32 INR 1.3 08/20/17 20:32 APTT 34 SECONDS (21-34) 08/20/17 20:32 - Constitutional Appears: Non-toxic, No Acute Distress, Older Than Stated Age - Head Exam Head Exam: ATRAUMATIC, NORMAL INSPECTION - Eye Exam Eye Exam: EOMI, Normal appearance - ENT Exam ENT Exam: Mucous Membranes Dry - Respiratory Exam Respiratory Exam: Decreased Breath Sounds (right lower lung ), Wheezes, NORMAL BREATHING PATTERN. absent: Accessory Muscle Use - Cardiovascular Exam Cardiovascular Exam: REGULAR RHYTHM, +S1, +S2 - GI/Abdominal Exam GI & Abdominal Exam: Distended, Soft, Normal Bowel Sounds. absent: Tenderness - Extremities Exam Additional comments: left leg cellulitis with edema left lateral tibial scar - Neurological Exam Neurological Exam: Alert, Awake, Oriented x3 - Psychiatric Exam Psychiatric exam: Normal Affect, Normal Mood - Skin Skin Exam: Warm Assessment and Plan - Assessment and Plan (Free Text) Assessment: Pneumonia - Patient was admitted for shortness of breath - afebrile - Trop negative x3 - Pulm Consult: Dr. Pack --> help appreciated - Chest CT: No definite CT evidence of pulmonary embolism. Right lower lobe atelectasis versus early pneumonia. - WBC 17.7 --> 13.9 - Incentive spirometer - f/u blood culture - Medications: * duonebs Q4H [facility] * Solumedrol 40mg IV Q8H * Cefepime 1gm q24h started 08/21/17 * Vancomycin 1gm q24h started 08/21/17 Leukocytosis - secondary to pneumonia; please see first assessment History of HTN - Continue home medication * Cozaar 50mg PO daily - Lipid Panel: Triglycerides 62; total cholesterol 122; LDL 70; HDL 30 - f/u ECHO Impaired Glucose Tolerance - hA1c 5.7 - Heart Healthy/Low Carb Diet History of lower extremity cellulitis - stable non-pitting edema - prior duplex (07/31/17) negative for DVT History of Liver Cirrhosis - AST/ALT: - f/u abdominal US History of Hepatitis C - Treated as an out patient Prophylaxis - DVT: Heparin 5000 SC Q8H - GI prophylaxis not indicated - SCD contraindication secondary to LE cellullitis Case discussed with Dr. Roxie Burgess PGY-1 <Nohemy Faustin V - Last Filed: 08/21/17 19:13> Objective - Vital Signs/Intake and Output Vital Signs (last 24 hours): Temp Pulse Resp BP Pulse Ox 97.7 F 99 H 20 144/77 95 08/21/17 15:08 08/21/17 15:08 08/21/17 15:08 08/21/17 15:08 08/21/17 15:08 Intake and Output: 08/21/17 08/21/17 06:59 18:59 Intake Total 240 550 Output Total 500 Balance 240 50 - Medications Medications: Current Medications Albuterol/Ipratropium (Duoneb 3 Mg/0.5 Mg (3 Ml) Ud) 3 ml INH RQ4 [facility] Last Admin: 08/21/17 14:31 Dose: Not Given Enoxaparin Sodium (Lovenox) 30 mg SC DAILY [facility] Last Admin: 08/21/17 14:24 Dose: 30 mg Cefepime HCl (Maxipime Iv 1 Gm Premix) 1 gm in 50 mls @ 100 mls/hr IVPB Q24H [facility] PRN Reason: Protocol Last Admin: 08/21/17 09:02 Dose: 100 mls/hr Vancomycin/Sodium Chloride (Vancomycin 1 Gm/Ns 200 Ml) 1 gm in 200 mls @ 133.333 mls/hr IVPB Q24H [facility] PRN Reason: Protocol Stop: 08/26/17 08:01 Last Admin: 08/21/17 09:41 Dose: 133.333 mls/hr Losartan Potassium (Cozaar) 50 mg PO DAILY [facility] Last Admin: 08/21/17 09:01 Dose: 50 mg Methylprednisolone (Solu-Medrol) 40 mg IVP Q8 [facility] Last Admin: 08/21/17 13:20 Dose: 40 mg - Labs Labs: 08/21/17 03:06 08/21/17 03:06 PT 13.9 SECONDS (9.7-12.2) H 08/20/17 20:32 INR 1.3 08/20/17 20:32 APTT 34 SECONDS (21-34) 08/20/17 20:32 Attending/Attestation - Attestation I have personally seen and examined this patient.: Yes I have fully participated in the care of the patient.: Yes I have reviewed all pertinent clinical information, including history, physical exam and plan: Yes Notes (Text): Patient seen, examined and case discussed with day-time resident. Patient seen at bedside in ICU awaiting telemetry bed. Discussed with resident above; addendums noted Assessment and Plan as above. Patient had prior hospitalizations noted for shortness of breathe. Patient with known hx of hepatitis C, has outpatient GI, has been treated for hepatitis C. Patient does not have current cellulitis over the lower extremity. Patient noted to have impaired glucose tolerance, hypertension will check echo given complaint of shortness of breathe. Assessment/Plan 1) Pneumonia vs Atelectasis Possible Healthcare Associated Pneumonia Assessment/Plan * Monitor on telemetry * Pulmonary Consult: Dr. Pack --> help appreciated * Trop negative x3 * Chest CT (08/20/17): No definite CT evidence of pulmonary embolism. Right lower lobe atelectasis versus early pneumonia. follow-up resolution. * Incentive spirometer * f/u chest xray in AM * Pending blood culture - Medications: * duonebs Q4H [facility] * Solumedrol 40mg IV Q8H * Cefepime 1gm q24h started 08/21/17 * Vancomycin 1gm q24h started 08/21/17 2) Leukocytosis Assessment/Plan * secondary to pneumonia; please see first assessment 3) History of HTN Assessment/Plan * Continue home medication-->Cozaar 50mg PO daily * Lipid Panel: Triglycerides 62; total cholesterol 122; LDL 70; HDL 30 * f/u ECHO 4) Impaired Glucose Tolerance Assessment/Plan * hA1c 5.7 * Heart Healthy/Low Carb Diet 5) Prior hx of lower extremity cellulitis Assessment/Plan * Treated as outpatient; * stable, no erythema, no tender to palpation * Patient f/u with PMD as outpatient * prior duplex (07/31/17) negative for DVT 6) History of Liver Cirrhosis Assessment/Plan * AST/ALT: * f/u abdominal US 7) History of Hepatitis C Assessment/Plan * Treated as an out patient and sees GI * Abdominal US from one year ago. I do not appreciated ascites on physical exam , but patient is obese as well. 8) Prophylaxis Assessment/Plan * DVT: Heparin 5000 SC Q8H * GI prophylaxis not indicated * SCD contraindication secondary to LE cellullitis
[2017-08-21] MEDS: Cefepime IV 1 gm in Dextrose 1 GM/50 ML BAG IVPB SCH (09:02)
[2017-08-21] MEDS: Vancomycin 1 gm/NS 200 ml 1 GM/200 ML BAG IVPB SCH (09:41)
[2017-08-21 13:21] LABS: HDL CHOLESTEROL 30 mg/dL (30-70)
[2017-08-21 13:33] LABS: LDL CHOLESTEROL 70 mg/dL (0-129)
[2017-08-21] MEDS ORDERED: Enoxaparin 40 mg Syringe SC SCH (14:00)
[2017-08-21] MEDS: Enoxaparin 30 mg Syringe SC SCH (14:24)
[2017-08-21] MEDS: Albuterol-Ipratrop 3 mg / 0.5 (3 ml) UD INH SCH ×3 (14:31→23:57)
[2017-08-21 16:15] VITALS: RESP 20
[2017-08-22] MEDS: Albuterol-Ipratrop 3 mg / 0.5 (3 ml) UD INH SCH ×3 (03:30→15:53)
[2017-08-22] MEDS: MethylPREDNISolone 40 mg Vial IVP SCH ×2 (05:51→14:31)
--- NOTE | 2017-08-22 07:46 | CP.PCM.PN ---
Subjective - Date & Time of Evaluation Date of Evaluation: 08/22/17 Time of Evaluation: 07:00 - Subjective Subjective: Medicine Progress Note: Patient was seen and examined at bedside in the AM. Patient states his breathing has significantly improved today and so has his leg swelling. Patient states he was able to walk yesterday. Patient denies nausea, vomiting, fever, chills, diarrhea or constipation. Objective - Vital Signs/Intake and Output Vital Signs (last 24 hours): Temp Pulse Resp BP Pulse Ox 98.4 F 108 H 20 130/56 L 96 08/21/17 23:40 08/21/17 23:45 08/21/17 23:40 08/21/17 23:40 08/21/17 23:40 Intake and Output: 08/22/17 08/22/17 06:59 18:59 Intake Total 1000 Balance 1000 - Medications Medications: Current Medications Albuterol/Ipratropium (Duoneb 3 Mg/0.5 Mg (3 Ml) Ud) 3 ml INH RQ4 [facility] Last Admin: 08/22/17 03:30 Dose: Not Given Enoxaparin Sodium (Lovenox) 30 mg SC DAILY [facility] Last Admin: 08/21/17 14:24 Dose: 30 mg Cefepime HCl (Maxipime Iv 1 Gm Premix) 1 gm in 50 mls @ 100 mls/hr IVPB Q24H [facility] PRN Reason: Protocol Last Admin: 08/21/17 09:02 Dose: 100 mls/hr Vancomycin/Sodium Chloride (Vancomycin 1 Gm/Ns 200 Ml) 1 gm in 200 mls @ 133.333 mls/hr IVPB Q24H [facility] PRN Reason: Protocol Stop: 08/26/17 08:01 Last Admin: 08/21/17 09:41 Dose: 133.333 mls/hr Losartan Potassium (Cozaar) 50 mg PO DAILY [facility] Last Admin: 08/21/17 09:01 Dose: 50 mg Methylprednisolone (Solu-Medrol) 40 mg IVP Q8 [facility] Last Admin: 08/22/17 05:51 Dose: 40 mg Saccharomyces Boulardii (Florastor) 250 mg PO BID [facility] - Labs Labs: 08/21/17 03:06 08/21/17 03:06 PT 13.9 SECONDS (9.7-12.2) H 08/20/17 20:32 INR 1.3 06/10/18 20:32 APTT 34 SECONDS (21-34) 08/20/17 20:32 - Constitutional Appears: No Acute Distress - Head Exam Head Exam: ATRAUMATIC, NORMAL INSPECTION - Eye Exam Eye Exam: EOMI, Normal appearance - ENT Exam ENT Exam: Mucous Membranes Moist - Respiratory Exam Respiratory Exam: Clear to Ausculation Bilateral, NORMAL BREATHING PATTERN. absent: Wheezes - Cardiovascular Exam Cardiovascular Exam: REGULAR RHYTHM, +S1, +S2 - GI/Abdominal Exam GI & Abdominal Exam: Firm, Normal Bowel Sounds. absent: Tenderness Additional comments: obese abdomen - Extremities Exam Extremities Exam: Pedal Edema (left lower extremity +2). absent: Tenderness - Skin Skin Exam: Dry, Intact, Normal Color, Warm Additional comments: left lateral tibial scar Assessment and Plan - Assessment and Plan (Free Text) Assessment: Healthcare Associated Pneumonia - Patient was admitted for shortness of breath - afebrile - Trop negative x3 - Pulm Consult: Dr. Pack --> help appreciated - Chest CT: No definite CT evidence of pulmonary embolism. Right lower lobe atelectasis versus early pneumonia. - Chest Xray (08/22/17): - WBC 17.7 --> 13.9 - Incentive spirometer - Blood culture: Negative - Medications: * duonebs Q4H [facility] * Solumedrol 40mg IV Q8H * Cefepime 1gm q24h started 08/21/17 * Vancomycin 1gm q24h started 08/21/17 Leukocytosis - secondary to pneumonia; please see first assessment History of HTN - Continue home medication * Cozaar 50mg PO daily - Lipid Panel: Triglycerides 62; total cholesterol 122; LDL 70; HDL 30 - ECHO (08/22/17): EF 66.1%; Left ventricle is normal. Diastolic dysfunction; no aortic regurgitation; mild pulmonary HTN Impaired Glucose Tolerance - hA1c 5.7 - Heart Healthy/Low Carb Diet History of lower extremity cellulitis - stable non-pitting edema - prior duplex (07/31/17) negative for DVT History of Liver Cirrhosis - AST/ALT: - f/u abdominal US History of Hepatitis C - Treated as an out patient Prophylaxis - DVT: Heparin 5000 SC Q8H - GI prophylaxis not indicated - SCD contraindication secondary to LE cellullitis Case discussed with Dr. Emily Burgess PGY-1
--- NOTE | 2017-08-22 07:55 | CARD ---
APPROVED REPORT EXAM: Two-dimensional and M-mode echocardiogram with Doppler and color Doppler. Other Information Quality : GoodRhythm : INDICATION Chest Pain COPD Pneumonia 2D DIMENSIONS IVSd1.0 (0.7-1.1cm)LVDd4.7 (3.9-5.9cm) PWd1.0 (0.7-1.1cm)LVDs3.0 (2.5-4.0cm) FS (%) 36.4 %LVEF (%)66.1 (>50%) M-Mode DIMENSIONS Left Atrium (MM)4.06 (2.5-4.0cm)IVSd0.87 (0.7-1.1cm) Aortic Root3.38 (2.2-3.7cm)LVDd5.76 (4.0-5.6cm) Aortic Cusp Exc.2.72 (1.5-2.0cm)PWd0.80 (0.7-1.1cm) FS (%) 49 %LVDs2.95 (2.0-3.8cm) LVEF (%)79 (>50%) Mitral Valve MV E Fytgpagl91.9cm/sMV A Mebpvkqy600.1cm/sE/A ratio0.7 TDI E/Lateral E'0.0E/Medial E'0.0 Tricuspid Valve TR Peak Sqyxkxdc548fj/sTR Peak Gr.97kzLwRTBI90fmZb LEFT VENTRICLE The Left Ventricle is borderline dilated. There is normal left ventricular wall thickness. Left ventricle systolic function is normal. The Ejection Fraction is 65-70%. There is normal LV segmental wall motion. Tissue Doppler imaging reveals abnormal left ventricular diastolic dysfunction. RIGHT VENTRICLE The right ventricle is normal size. There is normal right ventricular wall thickness. The right ventricular systolic function is normal. ATRIA The left atrium is mildly dilated. The right atrium size is normal. The interatrial septum is intact with no evidence for an atrial septal defect. AORTIC VALVE The aortic valve is normal in structure. No aortic regurgitation is present. There is no aortic valvular stenosis. MITRAL VALVE The mitral valve is normal in structure. There is no evidence of mitral valve prolapse. There is no mitral valve stenosis. There is no mitral valve regurgitation noted. TRICUSPID VALVE The tricuspid valve is normal in structure. There is mild tricuspid regurgitation. Right ventricular systolic pressure is estimated at 30-40 mmHg. There is mild pulmonary hypertension. PULMONIC VALVE The pulmonic valve is not well visualized. There is no pulmonic valvular regurgitation. GREAT VESSELS The aortic root is normal in size. PERICARDIAL EFFUSION There is no pericardial effusion. <Conclusion> Left ventricle systolic function is normal. The Ejection Fraction is 65-70%. Diastolic dysfunction. No aortic regurgitation is present. There is no mitral valve regurgitation noted. There is mild tricuspid regurgitation. There is mild pulmonary hypertension. There is no pulmonic valvular regurgitation.
[2017-08-22 07:58] LABS: BASO % 0.1 % (0.0-2.0); LYMPH # 1.6 K/uL (1.0-4.3); LYMPH % 9.2 % (20.0-40.0); MEAN CELL VOLUME 86.6 fL (80.0-94.0); MEAN CORPUSCULAR HEMOGLOBIN 29.8 pg (27.0-31.0); MEAN CORPUSCULAR HGB CONC 34.4 g/dL (33.0-37.0); MEAN PLATELET VOLUME 9.1 fL (7.2-11.7); MONO # 0.9 K/uL (0.0-0.8); MONO % 4.9 % (0.0-10.0); NEUT % 85.8 % (50.0-75.0); PLATELET COUNT 203 K/uL (130-400); RBC 4.04 Mil/uL (4.40-5.90); RED CELL DISTRIBUTION WIDTH 13.7 % (11.5-14.5); WHITE BLOOD COUNT 17.4 K/uL (4.8-10.8)
[2017-08-22 08:13] LABS: ALB/GLOB RATIO 0.8 (1.0-2.1); ALBUMIN 3.7 g/dL (3.5-5.0); ALT/SGPT 10 U/L (21-72); AST/SGOT 18 U/L (17-59); BLOOD UREA NITROGEN 33 mg/dL (9-20); CALCIUM 9.1 mg/dl (8.6-10.4); GFR AFRICAN-AMERICAN > 60; GFR NON-AFRICAN AMERICAN > 60
[2017-08-22] MEDS: Cefepime IV 1 gm in Dextrose 1 GM/50 ML BAG IVPB SCH (08:30)
[2017-08-22] MEDS: Vancomycin 1 gm/NS 200 ml 1 GM/200 ML BAG IVPB SCH (09:00)
[2017-08-22 09:03] LABS: TOTAL CELLS COUNTED 100
[2017-08-22 09:04] LABS: LYMPHOCYTE 9 % (20-40); MONOCYTE 4 % (0-10); NEUTROPHIL 87 % (50-75)
[2017-08-22 09:05] LABS: PLATELET ESTIMATE NORMAL (NORMAL)
--- NOTE | 2017-08-22 09:56 | RAD ---
HISTORY: Pneumonia COMPARISON: No prior. FINDINGS: LUNGS: Poor inspiration with low lung volumes, crowded bronchovascular markings, mild bibasilar atelectasis and mild increased central pulmonary vascularity. Possibility of lower lobe infiltrates not completely excluded. PLEURA: No significant pleural effusion identified, no pneumothorax apparent. CARDIOVASCULAR: Normal. OSSEOUS STRUCTURES: No significant abnormalities. VISUALIZED UPPER ABDOMEN: Normal. OTHER FINDINGS: None. IMPRESSION: Poor inspiration with low lung volumes, crowded bronchovascular markings, mild bibasilar atelectasis and mild increased central pulmonary vascularity. Possibility of lower lobe infiltrates not completely excluded.
[2017-08-22] MEDS ORDERED: Saccharomyces Boulardi 250 mg Cap PO SCH (10:00)
[2017-08-22] MEDS: Enoxaparin 30 mg Syringe SC SCH (10:24)
--- NOTE | 2017-08-22 11:50 | CP.PCM.DIS ---
Provider - Provider Date of Admission: 08/20/17 22:27 Attending physician: Naseem David MD Time Spent in preparation of Discharge (in minutes): 40 Hospital Course - Lab Results Lab Results: Micro Results 08/20/17 20:25 Blood-Venous Blood Culture - Preliminary NO GROWTH AFTER 24 HOURS Most Recent Lab Values WBC 17.4 K/uL (4.8-10.8) H 08/22/17 07:47 RBC 4.04 Mil/uL (4.40-5.90) L 08/22/17 07:47 Hgb 12.0 g/dL (12.0-18.0) 08/22/17 07:47 Hct 35.0 % (35.0-51.0) 08/22/17 07:47 MCV 86.6 fL (80.0-94.0) 08/22/17 07:47 MCH 29.8 pg (27.0-31.0) 08/22/17 07:47 MCHC 34.4 g/dL (33.0-37.0) 08/22/17 07:47 RDW 13.7 % (11.5-14.5) 08/22/17 07:47 Plt Count 203 K/uL (130-400) 08/22/17 07:47 MPV 9.1 fL (7.2-11.7) 08/22/17 07:47 Neut % (Auto) 85.8 % (50.0-75.0) H 08/22/17 07:47 Lymph % (Auto) 9.2 % (20.0-40.0) L 08/22/17 07:47 Desha % (Auto) 4.9 % (0.0-10.0) 08/22/17 07:47 Eos % (Auto) 0.0 % (0.0-4.0) 08/22/17 07:47 Baso % (Auto) 0.1 % (0.0-2.0) 08/22/17 07:47 Neut # (Auto) 15.0 K/uL (1.8-7.0) H 08/22/17 07:47 Lymph # (Auto) 1.6 K/uL (1.0-4.3) 08/22/17 07:47 Desha # (Auto) 0.9 K/uL (0.0-0.8) H 08/22/17 07:47 Eos # (Auto) 0.0 K/uL (0.0-0.7) 08/22/17 07:47 Baso # (Auto) 0.0 K/uL (0.0-0.2) 08/22/17 07:47 Neutrophils % (Manual) 87 % (50-75) H 08/22/17 07:47 Band Neutrophils % 2 % (0-2) 08/21/17 03:06 Lymphocytes % (Manual) 9 % (20-40) L 08/22/17 07:47 Monocytes % (Manual) 4 % (0-10) 08/22/17 07:47 Metamyelocytes % 1 % (0-0) H 08/20/17 20:32 Platelet Estimate Normal (NORMAL) 08/22/17 07:47 PT 13.9 SECONDS (9.7-12.2) H 08/20/17 20:32 INR 1.3 08/20/17 20:32 APTT 34 SECONDS (21-34) 08/20/17 20:32 Sodium 144 mmol/L (132-148) 08/22/17 07:47 Potassium 4.2 mmol/L (3.6-5.2) 08/22/17 07:47 Chloride 109 mmol/L (98-107) H 08/22/17 07:47 Carbon Dioxide 24 mmol/L (22-30) 08/22/17 07:47 Anion Gap 16 (10-20) 08/22/17 07:47 BUN 33 mg/dL (9-20) H 08/22/17 07:47 Creatinine 1.1 mg/dL (0.8-1.5) 08/22/17 07:47 Est GFR ( Amer) > 60 08/22/17 07:47 Est GFR (Non-Af Amer) > 60 08/22/17 07:47 Random Glucose 142 mg/dL (75-110) H 08/22/17 07:47 Hemoglobin A1c 5.7 % (4.2-6.5) 08/21/17 13:02 Calcium 9.1 mg/dl (8.6-10.4) 08/22/17 07:47 Phosphorus 3.0 mg/dL (2.5-4.5) 08/22/17 07:47 Magnesium 2.1 mg/dL (1.6-2.3) 08/22/17 07:47 Total Bilirubin 0.4 mg/dL (0.2-1.3) 08/22/17 07:47 AST 18 U/L (17-59) 08/22/17 07:47 ALT 10 U/L (21-72) L D 08/22/17 07:47 Alkaline Phosphatase 81 U/L (38-126) 08/22/17 07:47 Total Creatine Kinase 27 U/L (55-170) L 08/21/17 03:06 CK-MB (Mass) < 0.22 ng/mL (0.0-3.38) 08/21/17 03:06 Troponin I < 0.0120 ng/mL (0.00-0.120) 08/21/17 03:06 NT-Pro-B Natriuret Pep 86.5 pg/mL (0-900) 08/20/17 20:32 Total Protein 8.2 g/dL (6.3-8.3) 08/22/17 07:47 Albumin 3.7 g/dL (3.5-5.0) 08/22/17 07:47 Globulin 4.4 gm/dL (2.2-3.9) H 08/22/17 07:47 Albumin/Globulin Ratio 0.8 (1.0-2.1) L 08/22/17 07:47 Triglycerides 62 mg/dL (0-149) D 08/21/17 03:06 Cholesterol 122 mg/dL (0-199) 08/21/17 03:06 LDL Cholesterol Direct 70 mg/dL (0-129) 08/21/17 03:06 HDL Cholesterol 30 mg/dL (30-70) 08/21/17 03:06 - Hospital Course Hospital Course: CC: short of breath HPI: 57 year old male with past medical history of asthma, left leg cellulitis, cirrhosis, hepatitis C who presents to the ED for shortness of breath for 5 hours prior to being brought in by EMS. Patient states he was sitting outside by the levin all day and felt a shooting pain from left lower leg up to chest with dysnpea. Patient states notes that he has left lower leg celluitis, which is at baseline. Patient denies fever, cough, chills, vomiting, diarrhea, numbness. Past Medical History: Asthma, left leg cellulitis, cirrhosis (2002), hepatitis C (2002) Past Surgical History: tumor removal of left leg by Dr. Corrales Family History: Mom - at 71yo due to diabetes, Dad at age 49 due to [place] Medications: Ventolin, Nebulizer Social History: Lives with stepfather; incarcerated for 1 year and released during 10/2016 Patient smokes about 5 cigarettes per day for 30 years Patient denies ETOH use Previously used heroin IV - has not used for 2 years. Allergies: NKDA PMD: Dr. Holden Hospital Course: Patient was admitted for shortness of breath secondary to asthma exacerbation. Pulmonolgist Dr. Pack was consulted. Patient was started on duonebs Q4H [facility]; Solumedrol 40mg IV Q8H; Cefepime 1gm q24h started 08/21/17; Vancomycin 1gm q24h started 08/21/17. Patient's home medications were restarted. Due patient's history of liver cirrhosis an abdominal US was ordered. Patient was referred to division sales manager Dr. Smith as an outpatient. Images: Chest CT: No definite CT evidence of pulmonary embolism. Right lower lobe atelectasis versus early pneumonia. Abdominal US: Hepatomegaly with steatosis. Cholelithiasis without sonographic evidence of acute cholecystitis. Chest xray: Poor inspiration with low lung volumes, crowded bronchovascular markings, mild bibasilar atelectasis and mild increased central pulmonary vascularity. Possibility of lower lobe infiltrates not completely excluded. Patient is stable for discharge. Please continue Losartan 50mg daily Please start the following medications: 1.) Prednisone taper 2.) Duonebs as needed 3.) Advair Please follow up with PMD Dr. Holden 1-2 weeks. Please follow up with Pulmonolgist Dr. Smith within one week. This is a summary of the patient's hospital course. Refer to full EMR for a complete record. Discharge Exam - Head Exam Head Exam: ATRAUMATIC, NORMAL INSPECTION - Eye Exam Eye Exam: EOMI, Normal appearance, PERRL Pupil Exam: NORMAL ACCOMODATION - ENT Exam ENT Exam: Mucous Membranes Moist - Respiratory Exam Respiratory Exam: Clear to PA & Lateral, NORMAL BREATHING PATTERN - Cardiovascular Exam Cardiovascular Exam: REGULAR RHYTHM, +S1, +S2 - GI/Abdominal Exam GI & Abdominal Exam: Normal Bowel Sounds, Soft. absent: Tenderness Additional comments: obese abdomen - Extremities Exam Extremities exam: pedal edema - Neurological Exam Neurological exam: Alert, Oriented x3 - Psychiatric Exam Psychiatric exam: Normal Affect, Normal Mood - Skin Skin Exam: Dry, Intact, Normal Color, Warm Discharge Plan - Discharge Medications Prescriptions: Albuterol/Ipratropium [Duoneb 3 mg/0.5 mg (3 ml) UD] 3 ml INH RQ4 PRN 30 Days neb PRN Reason: Shortness Of Breath Fluticasone/Salmeterol 500/50 [Advair Diskus 500/50] 1 puff IH Q12 7 Days #1 puff Losartan [Cozaar] 50 mg PO DAILY #30 tab predniSONE [Prednisone] See Taper PO DAILY #8 tab - Follow Up Plan Condition: GUARDED Disposition: HOME/ ROUTINE Instructions: Chest Pain, Pneumonia, Adult (DC), Exacerbation of COPD, Cellulitis (Skin Infection), Adult (DC), Exacerbation of COPD (DC) Additional Instructions: Patient is stable for discharge. Please continue Losartan 50mg daily Please start the following medications: 1.) Prednisone taper 2.) Duonebs as needed 3.) Advair Please follow up with PMD Dr. Holden 1-2 weeks. Please follow up with Pulmonolgist Dr. Smith within one week. Referrals: Kavon Diaz MD [Staff Provider] - Anneliese Smith MD [Staff Provider] -
--- NOTE | 2017-08-22 13:06 | US ---
HISTORY: hx of liver cirrhosis COMPARISON: None. TECHNIQUE: Sonographic evaluation of the abdomen. FINDINGS: LIVER: Enlarged, measuring 18.4 cm. Increased echogenicity of the liver parenchyma. No mass. No intrahepatic bile duct dilatation. GALLBLADDER: Cholelithiasis without gallbladder wall thickening/ edema or pericholecystic fluid. Sonographic Urias's sign was not elicited. COMMON BILE DUCT: Measures 4 mm. No stones. No dilatation. PANCREAS: Unremarkable as visualized. No mass. No ductal dilatation. RIGHT KIDNEY: Measures 11.0 x 6.2 x 6.3cm. Normal echogenicity. No calculus, mass, or hydronephrosis. LEFT KIDNEY: Measures 12.0 x 5.2 x 5.4cm. Normal echogenicity. No calculus, mass, or hydronephrosis. SPLEEN: Normal in size and contour. No mass. AORTA: No aneurysmal dilatation. IVC: Unremarkable. OTHER FINDINGS: None. IMPRESSION: Hepatomegaly with steatosis. Cholelithiasis without sonographic evidence of acute cholecystitis.
[2017-08-22 15:45] VITALS: BP 155/77; PULSE 86; TEMP 98.1; O2SAT 95
--- NOTE | 2017-08-23 22:41 | CARD ---
APPROVED REPORT EKG Measurement Heart [id number] <Conclusion> Sinus tachycardia Possible Inferior infarct, age undetermined Cannot rule out Anterior infarct, age undetermined Abnormal ECG
== END 2017-08-22 16:00 | disposition home or self-care (01) | DRG 88 ==
LOC: C.ER 20:15 → C.9E 22:27 → C.6T 22:56 → C.9E 22:56 → C.9I 08-21 02:56 → C.5S 08-21 14:50
PROVIDERS: ADMIT Internal Medicine; ATTEND Internal Medicine
DX: J44.1 Chronic obstructive pulmonary disease with (acute) exacerbation (principal); J18.9 Pneumonia, unspecified organism; J98.11 Atelectasis; L03.116 Cellulitis of left lower limb; R18.8 Other ascites; J45.901 Unspecified asthma with (acute) exacerbation; K74.60 Unspecified cirrhosis of liver; I10 Essential (primary) hypertension; F17.210 Nicotine dependence, cigarettes, uncomplicated; E66.9 Obesity, unspecified; Z68.41 Body mass index [BMI] 40.0-44.9, adult

== ENCOUNTER 2017-10-12 19:17 | Emergency (ER) | payer MEDICAID ==
[2017-10-12 19:17] VITALS: BMI 40.4
[2017-10-12 19:28] VITALS: RESP 18; O2SAT 95
[2017-10-12] MEDS ORDERED: Aspirin 325 mg EC Tablets PO STA (19:35)
[2017-10-12] MEDS ORDERED: Nitroglycerin 2% Ointment Foilpak UD TOP STA (19:35)
--- NOTE | 2017-10-12 19:35 | C.PDOC ---
History Of Present Illness 57 year old male with PMHx of asthma, left leg cellulitis, cirrhosis, hepatitis C presents to the ED c/o LUQ abdominal pain that started 30 minutes ago. Patient states this pain is worse than previous times. Patient was recently discharged after multiple admissions for the same presentation. Patient had an echo done on 08/21 with normal LV function, EF was 705 and diastolic disfunction. Patient denies fever, chills, nausea, vomit, diarrhea, back pain, dysuria, hematuria. Patient currently lives with his stepfather, was incarcerated for 1 year and released during 10/2016. Patient's PMD is Dr. Holden. past medical history of asthma, left leg cellulitis, cirrhosis, hepatitis C Past Medical History: Asthma, left leg cellulitis, cirrhosis (2001), hepatitis C (2001) Past Surgical History: tumor removal of left leg by Dr. 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 Allergies: NKDA Time Seen by Provider: 10/12/17 19:22 History Per: Patient History/Exam Limitations: no limitations Onset/Duration Of Symptoms: Mins (30) Current Symptoms Are (Timing): Still Present Severity: Mild Quality: "Pain" Recent travel outside of the [place]: No Additional History Per: Patient Past Medical History Reviewed: Historical Data, Nursing Documentation, Vital Signs Vital Signs: Last Vital Signs Temp 98.2 F 10/12/17 19:24 Pulse 103 H 10/12/17 19:24 Resp 18 10/12/17 19:24 BP 105/62 10/12/17 19:24 Pulse Ox 95 10/13/17 00:38 - Medical History PMH: Asthma, COPD, HTN, Pneumonia Denies: Chronic Kidney Disease Other PMH: Asthma, left leg cellulitis, cirrhosis (2001), hepatitis C (2001) Other Surgeries: 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 Corrales. - [facility] Procedures DX ULTRASOUND-HEART (07/13/12) Family History: States: [place] (Father at 49 y/o), Diabetes (Mother at 71 y/o) - Social History Hx Tobacco Use: Yes (5 cigarettes per day for 30 years) Hx Alcohol Use: No Hx Substance Use: No (RECOVERYING 2.5 YRS. Previously used heroin IV) - Immunization History Hx Tetanus Toxoid Vaccination: Yes Hx Influenza Vaccination: Yes Hx Pneumococcal Vaccination: Yes Review Of Systems Constitutional: Negative for: Fever, Chills Cardiovascular: Negative for: Chest Pain, Palpitations Respiratory: Negative for: Cough, Shortness of Breath Gastrointestinal: Positive for: Abdominal Pain. Negative for: Nausea, Vomiting , Diarrhea Musculoskeletal: Negative for: Back Pain Skin: Negative for: Rash Neurological: Negative for: Weakness, Numbness Physical Exam - Physical Exam Appears: Non-toxic, Other (somnolent but awake to verbal stimuli. Obese) Skin: Normal Color, Warm, Dry Head: Atraumatic, Normacephalic Eye(s): bilateral: Normal Inspection Neck: Normal ROM, Supple Chest: Symmetrical Cardiovascular: Rhythm Regular Respiratory: Normal Breath Sounds, No Rales, No Rhonchi, No Wheezing Gastrointestinal/Abdominal: Soft, No Tenderness, No Guarding, No Rebound Extremity: Normal ROM, No Tenderness, No Swelling Neurological/Psych: Oriented x3, Normal Speech, Other (somnolent but awake to verbal stimuli) Gait: Steady ED Course And Treatment - Laboratory Results Result Diagrams: 10/12/17 19:58 10/12/17 19:58 Interpretation Of Abnormal: NEW ONSET RENAL INSUFF ECG: Interpreted By Wa, Viewed By Wa ECG Rhythm: Sinus Tachycardia Rate From EC (BPM) O2 Sat by Pulse Oximetry: 95 (ON RA) Pulse Ox Interpretation: Normal - Radiology CXR: Interpreted by Me CXR Interpretation: Yes: Other (MILD CHF) - CT Scan/US CT abd/pelvis Other Rad Studies (CT/US): Read By Radiologist, Radiology Report Reviewed CT/US Interpretation: EXAM: CT Abdomen and Pelvis With Intravenous Contrast. CLINICAL HISTORY: 57 years old, male; Pain; Abdominal pain; Generalized; Additional info: Luq pain. TECHNIQUE: Axial computed tomography images of the abdomen and pelvis with intravenous contrast. All CT. scans at this facility use at least one of these dose optimization techniques: automated exposure. control; mA and/or kV adjustment per patient size (includes targeted exams where dose is matched to. clinical indication); or iterative reconstruction. 619 images are submitted. Oral contrast was. administered. Axial reformatted images are submitted in lung windows. Coronal and sagittal reformatted images were created and reviewed. COMPARISON: No relevant prior studies available. FINDINGS: Lung bases: Unremarkable. No mass. No consolidation. ABDOMEN: Liver : Fatty liver. Gallbladder and bile ducts: Gallbladder distention which is folded on itself measuring 13 cm the. gallstones. Pancreas: Unremarkable. No mass. No ductal dilation. Spleen: Unremarkable. No splenomegaly. Adrenals: Unremarkable. No mass. Kidneys and ureters: Unremarkable. No solid mass. No hydronephrosis. Stomach and bowel: Small hiatal hernia with delayed emptying versus gastroesophageal reflux. No. obstruction. No mucosal thickening. PELVIS : Appendix: Normal appendix. VALERIA SORENSEN | Preliminary Radiology Report. CONFIDENTIALITY STATEMENT. This report is intended only for the use of the referring physician, and only in accordance with law, If you received this in error, call [phone]. Page 2 of 2. Bladder: Partially decompressed bladder with bladder wall thickening. Correlation with urinalysis is. recommended only if clinical cystitis is suspected. Reproductive: Enlarged prostate gland with calcification. ABDOMEN and PELVIS: Intraperitoneal space: Unremarkable. No free air. No significant fluid collection. Bones/joints: No acute fracture. No dislocation. Soft tissues: Bilateral inguinal herniation of fat. Left groin postoperative changes. Vasculature: Unremarkable. No abdominal aortic aneurysm. Lymph nodes : Shotty para-aortic lymph nodes. IMPRESSION: 1. Gallbladder distention which is folded on itself measuring 13 cm the gallstones.If clinically. warranted, a right upper quadrant ultrasound and correlation with LFTs may be helpful for further. assessment. Thank you for allowing us to participate in the care of your patient. Dictated and Authenticated by: Moise Muhammad MD. 10/13/2017 12:37 AM Eastern Time ([place] & [place]) Progress - Re-Evaluation Re-evaluation Note: 10/13/17 00:40 narc intox resolved, ao3 STEADY GAIT NAD. PS ABD PAIN NOW RESOLVED. NO NV. PT ADVISED OF CT FINDINGS, OFFERED US FOR R/O ACUTE ROSEMARY. PS DOESNT WANT TO STAY AND WISHES DC HOME.WILL FU PMD FOR OUTPT. NO FEVER, NV ABD NEG APPEARS COMFORTABLE. - Data Reviewed Data Reviewed: Lab, Diagnostic imaging, EKG, Old records Medical Decision Making Medical Decision Making: Impression: Possible narcan intoxication vs CO2 retention Plan: * ABG * Normal * CXR * EKG * Labs * Ecotrin 325 mg PO * Nitroglycerin 1 ea TOP * Tylenol 650 mg PO Disposition Counseled Patient/Family Regarding: Studies Performed, Diagnosis, Need For Followup - Disposition Referrals: YOUR,PMD [Other] Disposition: HOME/ ROUTINE Disposition Time: 00:44 Condition: IMPROVED Additional Instructions: YOU HAVE BEEN OFFERED AN ULTRASOUND FOR EVALUATION OF YOUR GALLBLADDER AND HAVE REFUSED THE REST. FOLLOW UP WITH YOUR PMD, RETURN IF WORSENING SYMPTOMS. Instructions: Gallstones (DC) - Clinical Impression Clinical Impression: Acute narcotic intoxication, Abdominal pain - Scribe Statement The provider has reviewed the documentation as recorded by the Scribe Kai Ceron All medical record entries made by the Scribe were at my direction and personally dictated by me. I have reviewed the chart and agree that the record accurately reflects my personal performance of the history, physical exam, medical decision making, and the department course for this patient. I have also personally directed, reviewed, and agree with the discharge instructions and disposition.
[2017-10-12 20:05] LABS: ABG ALLEN TEST POS; ARTERIAL BLOOD GAS HCO3 23.1 mmol/L (21-28); ARTERIAL BLOOD GAS HEMOGLOBIN 12.2 g/dL (11.7-17.4); ARTERIAL BLOOD GAS O2 SAT 97.7 % (95-98); ARTERIAL BLOOD GAS PCO2 37 mm/Hg (35-45); ARTERIAL BLOOD GAS PH 7.39 (7.35-7.45); ARTERIAL BLOOD GAS PO2 77 mm/Hg (80-100); ARTERIAL BLOOD GAS TCO2 23.5 mmol/L (22-28)
[2017-10-12] MEDS ORDERED: Aspirin 325 mg EC Tablets PO ONE (20:05)
[2017-10-12 20:12] LABS: BASO % 0.3 % (0.0-2.0); EOS # 0.3 K/uL (0.0-0.7); EOS % 1.9 % (0.0-4.0); HEMOGLOBIN 13.2 g/dL (12.0-18.0); LYMPH # 3.8 K/uL (1.0-4.3); LYMPH % 26.4 % (20.0-40.0); MEAN CELL VOLUME 87.3 fL (80.0-94.0); MEAN CORPUSCULAR HEMOGLOBIN 28.8 pg (27.0-31.0); MEAN PLATELET VOLUME 8.8 fL (7.2-11.7); NEUT # 9.3 K/uL (1.8-7.0); NEUT % 64.4 % (50.0-75.0); NRBC % 0.1 % (0.0-2.0); RBC 4.56 Mil/uL (4.40-5.90); WHITE BLOOD COUNT 14.4 K/uL (4.8-10.8)
[2017-10-12 20:18] LABS: ALB/GLOB RATIO 1.2 (1.0-2.1); ALBUMIN 4.4 g/dL (3.5-5.0); CALCIUM 9.1 mg/dl (8.6-10.4)
[2017-10-12] MEDS ORDERED: Sodium Chloride 0.9% 1,000 ML IV ONE (20:25)
[2017-10-12 20:29] LABS: TROPONIN I 0.021 ng/mL (0.00-0.120)
[2017-10-12] MEDS ORDERED: Iohexol 240 (50 ml) PO ONE (20:40)
[2017-10-12] MEDS ORDERED: Sodium Chloride 0.9% 1,000 ML ONE (20:42)
[2017-10-12 20:51] LABS: BARBITURATES, UR NEGATIVE (NEGATIVE); BENZODIAZEPINES, UR NEGATIVE (NEGATIVE); PHENCYCLIDINE, UR NEGATIVE (NEGATIVE)
[2017-10-12] MEDS ORDERED: Iohexol 240 (50 ml) ONE (20:51)
[2017-10-12 20:54] LABS: OPIATES, UR POSITIVE (NEGATIVE)
[2017-10-13 00:52] VITALS: BP 91/52; PULSE 88; TEMP 98.3
--- NOTE | 2017-10-13 08:19 | RAD ---
Date of service: 10/12/2017 PROCEDURE: CHEST RADIOGRAPH, 1 VIEW HISTORY: Chest pain COMPARISON: 07/31/2017. FINDINGS: LUNGS: The lungs are well inflated. There is mild pulmonary venous congestion. No focal consolidation. PLEURA: No pneumothorax or pleural fluid seen. CARDIOVASCULAR: Normal. OSSEOUS STRUCTURES: No significant abnormalities. VISUALIZED UPPER ABDOMEN: Normal. OTHER FINDINGS: None. IMPRESSION: No active pulmonary disease.
--- NOTE | 2017-10-13 09:45 | CT ---
Date of service: 10/12/2017 PROCEDURE: CT Abdomen and Pelvis with contrast HISTORY: LUQ PAIN COMPARISON: 12/16/2016. TECHNIQUE: CT scan of the abdomen and pelvis was performed without administration of intravenous contrast. Oral contrast was administered. Coronal and sagittal reformatted images were obtained. Radiation dose: Total exam DLP = 1184.53 mGy-cm. This CT exam was performed using one or more of the following dose reduction techniques: Automated exposure control, adjustment of the mA and/or kV according to patient size, and/or use of iterative reconstruction technique. FINDINGS: LOWER THORAX: The visualized lungs are clear. LIVER: Normal in size. No gross lesion or ductal dilatation. GALLBLADDER AND BILE DUCTS: The gallbladder is distended and there are multiple gallstones. No wall thickening or pericholecystic fluid. PANCREAS: Normal in size. No gross lesion or ductal dilatation. SPLEEN: Mild splenomegaly. ADRENALS: No discrete nodule. KIDNEYS AND URETERS: Normal in size without nephrolithiasis. No hydronephrosis. No solid mass. VASCULATURE: No aortic aneurysm. BOWEL: The small bowel loops are normal in caliber. The colon is unremarkable. No bowel obstruction. APPENDIX: Normal appendix. PERITONEUM: No free fluid. No free air. LYMPH NODES: No enlarged lymph nodes. BLADDER: Unremarkable. REPRODUCTIVE: Unremarkable. BONES: No acute fracture. OTHER FINDINGS: None. IMPRESSION: Gallbladder distention with multiple gallstones without wall thickening or pericholecystic fluid. Please correlate with right upper quadrant ultrasound if there is a concern for acute cholecystitis. A preliminary report was provided by [facility].
--- NOTE | 2017-10-13 20:47 | CARD ---
APPROVED REPORT Date of service: 10/12/2017 EKG Measurement Heart [id number] 140P13 [id number] <Conclusion> Sinus tachycardia Otherwise normal ECG
== END 2017-10-13 00:52 | disposition home or self-care (01) ==
LOC: C.ER 19:17
DX: R10.12 Left upper quadrant pain (principal); T50.901A Poisoning by unspecified drugs, medicaments and biological substances, accidental (unintentional), initial encounter
CPT/HCPCS: 36600; 71045; 74176; 80053; 80324; 80345; 80346; 80349; 80353; 80358; 80361; 82803; 83992; 84484; 85025; 93005; 99284; J7030; Q9966

== ENCOUNTER 2017-10-14 13:42 | Emergency (ER) | payer MEDICAID ==
[2017-10-14 13:42] VITALS: BMI 40.4
[2017-10-14 14:02] VITALS: O2SAT 96
[2017-10-14] MEDS ORDERED: Sodium Chloride 0.9% 1,000 ML IV ONE (14:21)
--- NOTE | 2017-10-14 14:29 | C.PDOC ---
History Of Present Illness 57 year old male with PMHx of hypertension presents to the ED complaining of exacerbation of abdominal pain. Associated symptoms include diarrhea. Patient states he was in the ED 2 days ago but pain persists and now is worse. He denies any recent travel, injuries/trauma. He denies any nausea, vomiting, fever , dysuria, or any other urinary symptoms. Time Seen by Provider: 10/14/17 14:10 Chief Complaint (Nursing): Abdominal Pain History Per: Patient History/Exam Limitations: no limitations Onset/Duration Of Symptoms: Days Current Symptoms Are (Timing): Still Present Location Of Pain/Discomfort: Diffuse Radiation Of Pain To:: None Quality Of Discomfort: "Pain" Associated Symptoms: Diarrhea. denies: Fever, Nausea, Vomiting, Urinary Symptoms Past Medical History Reviewed: Historical Data, Nursing Documentation, Vital Signs Vital Signs: Last Vital Signs Temp 98 F 10/14/17 17:18 Pulse 78 10/14/17 17:18 Resp 18 10/14/17 17:18 BP 130/60 10/14/17 17:18 Pulse Ox 96 10/14/17 17:18 - Medical History PMH: Asthma, COPD, HTN, Pneumonia Denies: Chronic Kidney Disease - [facility] Procedures DX ULTRASOUND-HEART (07/13/12) Family History: States: [place] (Father at 49 y/o), Diabetes (Mother at 71 y/o) - Social History Hx Tobacco Use: Yes (5 cigarettes per day for 30 years) Hx Alcohol Use: No Hx Substance Use: No (RECOVERYING 2.5 YRS. Previously used heroin IV) - Immunization History Hx Tetanus Toxoid Vaccination: Yes Hx Influenza Vaccination: Yes Hx Pneumococcal Vaccination: Yes Review Of Systems Except As Marked, All Systems Reviewed And Found Negative. Gastrointestinal: Positive for: Abdominal Pain, Diarrhea Physical Exam - Physical Exam Appears: Non-toxic, No Acute Distress Skin: Warm, Dry Head: Atraumatic, Normacephalic Eye(s): bilateral: Normal Inspection Nose: Normal Oral Mucosa: Moist Neck: Supple Chest: Symmetrical Cardiovascular: Rhythm Regular, No Murmur Respiratory: Normal Breath Sounds, No Rales, No Rhonchi, No Wheezing Gastrointestinal/Abdominal: Tenderness (Diffused abdominal tenderness) Extremity: Bilateral: Atraumatic, Normal Color And Temperature, Normal ROM Neurological/Psych: Oriented x3, Normal Speech Gait: Steady ED Course And Treatment - Laboratory Results Result Diagrams: 10/14/17 15:17 10/14/17 15:17 ECG: Interpreted By Me, Viewed By Me ECG Rhythm: Sinus Rhythm ECG Interpretation: No Acute Changes Interpretation Of ECG: Normal axis, normal intervals. No ST/T wave abnormalities Rate From EC O2 Sat by Pulse Oximetry: 96 (RA) Pulse Ox Interpretation: Normal - CT Scan/US US gallbladder Other Rad Studies (CT/US): Read By Radiologist, Radiology Report Reviewed CT/US Interpretation: Accession No. : [id number]. Patient Name / ID : EDU SHAW / [id number]. Exam Date : 10/14/2017 15:29:01 ( Approved ). Study Comment : Sex / Age : M / 57Y. Creator : Skip Hartman MD. Dictator : Skip Hartman MD. Lead Printer : Heart Coordinator : Skip Hartman MD. Approver2 : Report Date : 10/14/2017 16:19:19. My Comment : . Date of service: 10/14/2017. HISTORY: abd. marco n. COMPARISON: None. TECHNIQUE: Sonographic evaluation of the right upper quadrant of the abdomen. FINDINGS: LIVER: Measures 18.5 cm in length. Normal echogenicity of the liver parenchyma. No mass. No intrahepatic bile duct dilatation. GALLBLADDER: Mild cholelithiasis identified within the gallbladder lumen with the gallbladder distended but otherwise unremarkable appearing. COMMON BILE DUCT: Measures 4.0 mm. No stones. No dilatation. PANCREAS: Pancreas is obscured by overlying bowel gas and is not identified. RIGHT KIDNEY: Measures 11.0 cm in length. Normal echogenicity. No calculus, mass, or hydronephrosis. AORTA: No aneurysmal dilatation. IVC: Unremarkable. OTHER FINDINGS: None . IMPRESSION : Limited cholelithiasis is identified within a distended gallbladder with the gallbladder otherwise unremarkable appearing. No sonographic Urias sign is reported by the technologist and there is no evidence of biliary tree dilatation. The pancreas is obscured by overlying bowel gas completely. Medical Decision Making Medical Decision Making: Impression: abdominal pain Plan - EKG - Labs - CXR - Pepcid 20mg IVP - Toradol 30mg IVP - Zofran 4mg IVP - IV fluids - UA - US gallbladder biliary colic - patient states improvement and would like to follow up as outpatient. no pain now will discharge and provide surgery and gi follow up. Disposition Counseled Patient/Family Regarding: Studies Performed, Diagnosis, Need For Followup, Rx Given - Disposition Referrals: Pipe Contreras MD [Staff Provider] - Dheeraj Byers MD [Staff Provider] - Disposition: HOME/ ROUTINE Disposition Time: 17:11 Condition: STABLE Additional Instructions: you must follow up with gi and surgery call within 2 days to make an appointment take medications as needed return to ER if symptoms worsens or progress Prescriptions: Famotidine [Pepcid] 20 mg PO BID #20 tab Naproxen [Naprosyn] 500 mg PO BID PRN #16 tab PRN Reason: Pain, Moderate (4-7) Ondansetron ODT [Zofran ODT] 4 mg PO TID PRN #12 odt PRN Reason: Nausea/Vomiting Instructions: Gallstones (DC) Forms: [facility] (Slovenian), General Discharge Instructions - Clinical Impression Clinical Impression: Biliary colic - Scribe Statement The provider has reviewed the documentation as recorded by the Bentonibjose alejandro Robert All medical record entries made by the Bentonibjose alejandro were at my direction and personally dictated by me. I have reviewed the chart and agree that the record accurately reflects my personal performance of the history, physical exam, medical decision making, and the department course for this patient. I have also personally directed, reviewed, and agree with the discharge instructions and disposition.
[2017-10-14] MEDS ORDERED: Sodium Chloride 0.9% 1,000 ML ONE (14:42)
[2017-10-14 15:25] LABS: BASO % 0.5 % (0.0-2.0); EOS # 0.3 K/uL (0.0-0.7); EOS % 3.5 % (0.0-4.0); HEMOGLOBIN 12.6 g/dL (12.0-18.0); LYMPH # 2.3 K/uL (1.0-4.3); MEAN CELL VOLUME 86.9 fL (80.0-94.0); MEAN CORPUSCULAR HEMOGLOBIN 29.6 pg (27.0-31.0); MEAN PLATELET VOLUME 8.9 fL (7.2-11.7); MONO # 0.7 K/uL (0.0-0.8); NRBC % 0.1 % (0.0-2.0); RBC 4.25 Mil/uL (4.40-5.90); WHITE BLOOD COUNT 8.4 K/uL (4.8-10.8)
[2017-10-14 15:27] LABS: URINE BILIRUBIN NEGATIVE (NEGATIVE); URINE BLOOD NEGATIVE (NEGATIVE); URINE CLARITY Clear (Clear); URINE COLOR Yellow (YELLOW); URINE GLUCOSE (UA) NORMAL (Normal); URINE LEUKOCYTE ESTERASE NEG Leu/uL (Negative); URINE PROTEIN NEGATIVE (NEGATIVE); URINE UROBILINOGEN NORMAL mg/dL (0.2-1.0)
[2017-10-14 15:45] LABS: ALB/GLOB RATIO 1.2 (1.0-2.1); ALBUMIN 4.4 g/dL (3.5-5.0); ALT/SGPT 26 U/L (21-72); AST/SGOT 52 U/L (17-59); BLOOD UREA NITROGEN 35 mg/dL (9-20); CALCIUM 8.9 mg/dl (8.6-10.4); GFR AFRICAN-AMERICAN > 60; GFR NON-AFRICAN AMERICAN > 60; LIPASE 63 U/L (23-300)
--- NOTE | 2017-10-14 16:21 | US ---
Date of service: 10/14/2017 HISTORY: abd. marco n COMPARISON: None. TECHNIQUE: Sonographic evaluation of the right upper quadrant of the abdomen. FINDINGS: LIVER: Measures 18.5 cm in length. Normal echogenicity of the liver parenchyma. No mass. No intrahepatic bile duct dilatation. GALLBLADDER: Mild cholelithiasis identified within the gallbladder lumen with the gallbladder distended but otherwise unremarkable appearing. COMMON BILE DUCT: Measures 4.0 mm. No stones. No dilatation. PANCREAS: Pancreas is obscured by overlying bowel gas and is not identified. RIGHT KIDNEY: Measures 11.0 cm in length. Normal echogenicity. No calculus, mass, or hydronephrosis. AORTA: No aneurysmal dilatation. IVC: Unremarkable. OTHER FINDINGS: None . IMPRESSION: Limited cholelithiasis is identified within a distended gallbladder with the gallbladder otherwise unremarkable appearing. No sonographic Urias sign is reported by the technologist and there is no evidence of biliary tree dilatation. The pancreas is obscured by overlying bowel gas completely.
[2017-10-14 17:20] VITALS: BP 130/60; PULSE 78; RESP 18; TEMP 98
--- NOTE | 2017-10-14 18:11 | RAD ---
Date of service: 10/14/2017 PROCEDURE: CHEST RADIOGRAPH, 1 VIEW HISTORY: abd pain COMPARISON: Portable chest 10/12/2017. FINDINGS: LUNGS: No interval pulmonary disease appreciated bilaterally. PLEURA: No pneumothorax or pleural fluid seen. CARDIOVASCULAR: Stable cardiomediastinal silhouette. No pulmonary vascular congestion appreciable. OSSEOUS STRUCTURES: No significant abnormalities. VISUALIZED UPPER ABDOMEN: Normal. OTHER FINDINGS: None. IMPRESSION: No interval acute cardiopulmonary disease appreciated.
--- NOTE | 2017-10-16 12:12 | CARD ---
APPROVED REPORT Date of service: 10/14/2017 EKG Measurement Heart [id number] [place] 156P20 [id number] <Conclusion> Normal sinus rhythm Normal ECG
== END 2017-10-14 17:26 | disposition home or self-care (01) ==
LOC: C.ER 13:42
DX: K80.70 Calculus of gallbladder and bile duct without cholecystitis without obstruction (principal)
CPT/HCPCS: 71045; 76705; 80053; 81001; 83690; 84484; 85025; 93005; 96361; 96374; 96375; 99285; J1885; J2405; J7030

== ENCOUNTER 2017-10-20 17:47 | Emergency (ER) | payer MEDICAID ==
[2017-10-20 17:48] VITALS: BMI 40.4
[2017-10-20 19:02] LABS: BASO # 0.1 K/uL (0.0-0.2); BASO % 0.5 % (0.0-2.0); EOS # 0.3 K/uL (0.0-0.7); EOS % 2.3 % (0.0-4.0); HEMOGLOBIN 12.2 g/dL (12.0-18.0); LYMPH # 2.7 K/uL (1.0-4.3); LYMPH % 23.9 % (20.0-40.0); MEAN CELL VOLUME 86.8 fL (80.0-94.0); MEAN CORPUSCULAR HEMOGLOBIN 29.6 pg (27.0-31.0); MEAN CORPUSCULAR HGB CONC 34.1 g/dL (33.0-37.0); MEAN PLATELET VOLUME 8.7 fL (7.2-11.7); MONO # 0.8 K/uL (0.0-0.8); MONO % 6.8 % (0.0-10.0); NEUT # 7.5 K/uL (1.8-7.0); NEUT % 66.5 % (50.0-75.0); NRBC % 0.1 % (0.0-2.0); RBC 4.12 Mil/uL (4.40-5.90); RED CELL DISTRIBUTION WIDTH 13.6 % (11.5-14.5); WHITE BLOOD COUNT 11.3 K/uL (4.8-10.8)
[2017-10-20 19:31] LABS: ALB/GLOB RATIO 1.1 (1.0-2.1); CALCIUM 8.8 mg/dl (8.6-10.4)
--- NOTE | 2017-10-20 19:44 | C.PDOC ---
History Of Present Illness Patient comes in with complaint of right upper quadrant abdominal pain, starting after he ate pizza. Patient recently had a CT study and was noted to have gallstones. He states currently in the ER, he feels slightly better. Time Seen by Provider: 10/20/17 19:44 Chief Complaint (Nursing): Abdominal Pain History Per: Patient History/Exam Limitations: no limitations Onset/Duration Of Symptoms: Hrs Current Symptoms Are (Timing): Still Present Context: Food Location Of Pain/Discomfort: RUQ Radiation Of Pain To:: None Quality Of Discomfort: "Pain" Associated Symptoms: denies: Fever, Chills, Nausea, Vomiting, Diarrhea, Back Pain, Chest Pain Additional History Per: Patient Past Medical History Reviewed: Historical Data, Nursing Documentation, Vital Signs Vital Signs: Last Vital Signs Temp 98.5 F 10/20/17 18:04 Pulse 94 H 10/20/17 18:04 Resp 18 10/20/17 18:04 BP 90/47 L 10/20/17 18:04 Pulse Ox 93 L 10/20/17 20:42 - Medical History PMH: Asthma, COPD, HTN, Pneumonia Denies: Chronic Kidney Disease Surgical History: No Surg Hx - [facility] Procedures DX ULTRASOUND-HEART (07/13/12) Family History: States: Unknown Family Hx, [place] (Father at 49 y/o), Diabetes (Mother at 71 y/o) - Social History Hx Tobacco Use: Yes (5 cigarettes per day for 30 years) Hx Alcohol Use: No Hx Substance Use: No (RECOVERYING 2.5 YRS. Previously used heroin IV) - Immunization History Hx Tetanus Toxoid Vaccination: Yes Hx Influenza Vaccination: Yes Hx Pneumococcal Vaccination: Yes Review Of Systems Constitutional: Negative for: Fever, Chills Cardiovascular: Negative for: Chest Pain Respiratory: Negative for: Shortness of Breath Gastrointestinal: Positive for: Abdominal Pain. Negative for: Nausea, Vomiting Musculoskeletal: Negative for: Back Pain Physical Exam - Physical Exam Appears: Non-toxic, Other (morbidly obese) Skin: Warm, Dry Head: Atraumatic Eye(s): bilateral: Normal Inspection Oral Mucosa: Moist Neck: Supple Chest: Symmetrical Cardiovascular: Rhythm Regular Respiratory: No Rales, No Rhonchi, No Wheezing Gastrointestinal/Abdominal: Soft, Tenderness (right upper quadrant), No Guarding , No Rebound, Other (morbidly obese abdomen) Back: No CVA Tenderness, No Vertebral Tenderness, No Paraspinal Tenderness Extremity: Pedal Edema (trace), No Deformity Extremity: Bilateral: Atraumatic Neurological/Psych: Oriented x3 Gait: Steady ED Course And Treatment - Laboratory Results Result Diagrams: 10/20/17 18:58 10/20/17 18:58 O2 Sat by Pulse Oximetry: 93 Pulse Ox Interpretation: Normal Progress Note: Labs and UA ordered. Patient given IV fluids, zofran, protonix and toradol. pt also requests nebulizer refills, since he ran out Reevaluation Time: 22:03 Reassessment Condition: Improved Medical Decision Making Medical Decision Making: Upon provider reevaluation patient is feeling better, is medically stable, and requires no further treatment in the ED at this time. Patient will be discharged home with Rx for duonebs . Counseling was provided and all questions were answered regarding diagnosis and need for follow up with the referred clinic. There is agreement to discharge plan. Return if symptoms persist or worsen. Disposition Counseled Patient/Family Regarding: Studies Performed, Diagnosis, Need For Followup, Rx Given - Disposition Referrals: Pipe Contreras MD [Staff Provider] - Disposition: HOME/ ROUTINE Disposition Time: 19:44 Condition: FAIR Additional Instructions: Please return if symptoms recur Prescriptions: Albuterol/Ipratropium [Duoneb 3 MG/3 Ml-0.5 MG/3 Ml 3 Ml] 3 ml IH QID PRN #50 neb PRN Reason: Wheezing Instructions: Colic (DC), Gallstones (DC) Forms: [facility] (Polish) - Clinical Impression Clinical Impression: Abdominal pain, Biliary colic, Gallstone - Scribe Statement The provider has reviewed the documentation as recorded by the Maddy Higginbotham Provider Attestation: All medical record entries made by the Maddy were at my direction and personally dictated by me. I have reviewed the chart and agree that the record accurately reflects my personal performance of the history, physical exam, medical decision making, and the department course for this patient. I have also personally directed, reviewed, and agree with the discharge instructions and disposition.
[2017-10-20] MEDS ORDERED: Sodium Chloride 0.9% 1,000 ML IV ONE (19:45)
[2017-10-20] MEDS ORDERED: Sodium Chloride 0.9% 1,000 ML ONE (20:02)
[2017-10-20 20:14] LABS: INR 1.2; PROTHROMBIN TIME 13.1 SECONDS (9.7-12.2)
[2017-10-20] MEDS ORDERED: Albuterol-Ipratrop 3 mg / 0.5 (3 ml) UD ONE (21:55)
[2017-10-20] MEDS: Albuterol-Ipratrop 3 mg / 0.5 (3 ml) UD IH SCH ×2 (21:55→22:37)
[2017-10-20 22:37] VITALS: BP 115/70; PULSE 79; RESP 20; TEMP 97.9; O2SAT 95
--- NOTE | 2017-10-24 17:04 | CARD ---
APPROVED REPORT Date of service: 10/20/2017 EKG Measurement Heart [id number] [place] 148P19 [id number] <Conclusion> Normal sinus rhythm Normal Electrocardiogram
== END 2017-10-20 22:37 | disposition home or self-care (01) ==
LOC: C.ER 17:47
DX: K80.70 Calculus of gallbladder and bile duct without cholecystitis without obstruction (principal); R10.11 Right upper quadrant pain; I10 Essential (primary) hypertension; J44.9 Chronic obstructive pulmonary disease, unspecified; F17.210 Nicotine dependence, cigarettes, uncomplicated
CPT/HCPCS: 80053; 82948; 83690; 85025; 85610; 85730; 93005; 94640; 96361; 96374; 96375; 99285; C9113; J1885; J2405; J7030

== ENCOUNTER 2017-10-30 01:10 | Inpatient (IN) | payer MEDICAID ==
[2017-10-30 01:10] VITALS: BMI 40.4
[2017-10-30] MEDS ORDERED: Sodium Chloride 0.9% 1,000 ML IV ONE (01:58)
[2017-10-30 02:08] LABS: HEMOGLOBIN 11.7 g/dL (12.0-18.0); LYMPH # 0.9 K/uL (1.0-4.3); LYMPH % 6.4 % (20.0-40.0); MEAN CELL VOLUME 86.2 fL (80.0-94.0); MEAN CORPUSCULAR HEMOGLOBIN 29.3 pg (27.0-31.0); MEAN PLATELET VOLUME 8.9 fL (7.2-11.7); MONO # 0.5 K/uL (0.0-0.8); MONO % 3.7 % (0.0-10.0); NEUT # 13.2 K/uL (1.8-7.0); NEUT % 89.9 % (50.0-75.0); PLATELET COUNT 158 K/uL (130-400); RBC 3.99 Mil/uL (4.40-5.90); RED CELL DISTRIBUTION WIDTH 13.6 % (11.5-14.5); WHITE BLOOD COUNT 14.7 K/uL (4.8-10.8)
[2017-10-30] MEDS ORDERED: Albuterol-Ipratrop 3 mg / 0.5 (3 ml) UD ONE ×3 (02:33→03:38)
[2017-10-30] MEDS ORDERED: Albuterol-Ipratrop 3 mg / 0.5 (3 ml) UD INH STA ×2 (02:44→03:01)
[2017-10-30 02:48] LABS: ANISOCYTOSIS SLIGHT; BANDS 3 % (0-2); LYMPHOCYTE 7 % (20-40); MONOCYTE 5 % (0-10); NEUTROPHIL 85 % (50-75); PLATELET ESTIMATE NORMAL (NORMAL); TOTAL CELLS COUNTED 100
--- NOTE | 2017-10-30 03:19 | C.PDOC ---
History Of Present Illness 57 y/o, BIBA, patient presents to the ER with multiple acute complaints. He reports having left lower extremity swelling, redness and pain that began suddenly today. The patient also complains of SOB with wheezing and abdominal pain. He states he has been having diarrhea. The patient denies any fever, productive cough or chest pain. Hx: hypertension, COPD, Pneumonia, Hepatitis C, Cirrhosis, Cellultits of lle (1 year ago), GI Disorder, Gall Bladder Dz, psychophysiologic disorder Sx: Biopsy to left lower leg 2016 Social Hx:went from smoking pack a day to only 4 cigarettes a day Time Seen by Provider: 10/30/17 01:56 Chief Complaint (Nursing): Abdominal Pain History Per: Patient History/Exam Limitations: no limitations Onset/Duration Of Symptoms: Days Current Symptoms Are (Timing): Still Present Recent travel outside of the [place]: No Past Medical History Reviewed: Historical Data, Nursing Documentation, Vital Signs Vital Signs: Last Vital Signs Temp 98.8 F 10/30/17 05:28 Pulse 99 H 10/30/17 05:28 Resp 16 10/30/17 05:28 BP 131/51 L 10/30/17 05:28 Pulse Ox 98 10/30/17 05:39 - Medical History PMH: Asthma, COPD, Gall Bladder Disease (GALLSTONES), HTN, Pneumonia Denies: Chronic Kidney Disease Other Surgeries: Biopsy to left lower leg 2017 - [facility] Procedures DX ULTRASOUND-HEART (07/13/12) Family History: States: Unknown Family Hx, [place] (Father at 49 y/o), Diabetes (Mother at 71 y/o) - Social History Hx Tobacco Use: Yes (5 cigarettes per day for 30 years) Hx Alcohol Use: No Hx Substance Use: No (RECOVERYING 2.5 YRS. Previously used heroin IV) - Immunization History Hx Tetanus Toxoid Vaccination: Yes Hx Influenza Vaccination: Yes Hx Pneumococcal Vaccination: Yes Review Of Systems Except As Marked, All Systems Reviewed And Found Negative. Constitutional: Positive for: Fever. Negative for: Chills, Sweats, Weakness, Malaise Eyes: Negative for: Pain, Vision Change, Conjunctivae Inflammation ENT: Negative for: Ear Pain Cardiovascular: Negative for: Chest Pain, Palpitations, Orthopnea, Paroxysmal Noc. Dyspnea, Edema, Light Headedness Respiratory: Positive for: Shortness of Breath, Wheezing. Negative for: Cough, SOB with Excertion Gastrointestinal: Positive for: Abdominal Pain, Diarrhea. Negative for: Nausea , Vomiting, Constipation, Melena Genitourinary: Negative for: Dysuria, Frequency, Incontinence Musculoskeletal: Positive for: Leg Pain (left ), Other (left lower extremity swelling and pain). Negative for: Neck Pain, Shoulder Pain, Arm Pain Skin: Positive for: Rash Neurological: Negative for: Weakness Psych: Negative for: Anxiety, Depression Physical Exam - Physical Exam Appears: Well, Non-toxic, No Acute Distress, In Acute Distress Skin: Normal Color, Warm, Dry Head: Atraumatic, Normacephalic Eye(s): bilateral: PERRL, EOMI Ear(s): Bilateral: Normal Oral Mucosa: Moist Tongue: Normal Appearing Lips: Normal Appearing Gingiva: Normal Appearing Neck: Normal Chest: Symmetrical Cardiovascular: Rhythm Regular, No Murmur Respiratory: No Rales, No Rhonchi, Wheezing Gastrointestinal/Abdominal: Normal Exam, Bowel Sounds, Soft Male Genital: Normal Inspection Extremity: Tenderness (to palpation lle), No Deformity, Swelling Extremity: Left: Other (significant swelling; erythema; redness trackin up to groin ), Bilateral: Atraumatic, Normal Color And Temperature, Normal ROM Neurological/Psych: Oriented x3, Normal Speech, Normal Cognition, Normal Cranial Nerves, Normal Motor, Normal Sensation ED Course And Treatment - Laboratory Results Result Diagrams: 10/30/17 02:02 10/30/17 02:02 ECG: Interpreted By Ak ECG Rhythm: Sinus Rhythm (NSR) Interpretation Of ECG: No ischemic changes. Vent rate 100 bpm. [place]-144. QRS- 98. QT-364. QTc-469 O2 Sat by Pulse Oximetry: 98 (RA) Pulse Ox Interpretation: Normal Medical Decision Making Medical Decision Makin57 y/o male with: --SOB with wheezing --LLE redness, swelling and pain- cellulitis. ddimer elevtaed /vasc duplex ordered for am --Abd pain with diarrhea- hx of cholecysititis/ biliary us ordered for am. Plan: --EKG --Amylase --CRP --Lipase --Lipid --CBC --D-Dimer --SED Rate --Chest X-Ray --Obstructive Series X-Ray --Albuterol 3ml & 6 ml --Protonix Inj 40 mg IV --Rocephin --SOLU-Medrol --Zofran Inj 4 mg IV --fentaNYL 50 mcg IV --Vancomycin Inj --IV Fluids --Nebulizer treatment --VASCLAB Gall stones in October 14 Admitted in August for COPD exacerbation Covered for cellulitis Plain X-Ray films look unremarkable elevyaed wbc, sed rate,cpr. 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 - Scribe Statement The provider has reviewed the documentation as recorded by the Scribe (Sheryl Saha) Provider Attestation: All medical record entries made by the Scribe were at my direction and personally dictated by me. I have reviewed the chart and agree that the record accurately reflects my personal performance of the history, physical exam, medical decision making, and the department course for this patient. I have also personally directed, reviewed, and agree with the discharge instructions and disposition.
[2017-10-30] MEDS ORDERED: cefTRIAXone IV 1 gm in Dextros 50 ML IVPB ONE (03:25)
[2017-10-30 03:33] LABS: ALB/GLOB RATIO 0.9 (1.0-2.1); ALBUMIN 3.6 g/dL (3.5-5.0); ALT/SGPT 31 U/L (21-72); AMYLASE 47 U/L (30-110); AST/SGOT 34 U/L (17-59); BLOOD UREA NITROGEN 32 mg/dL (9-20); CALCIUM 8.6 mg/dl (8.6-10.4); GFR AFRICAN-AMERICAN > 60; GFR NON-AFRICAN AMERICAN 57
[2017-10-30] MEDS: Magnesium Sulfate 1 gm in D5W 1 GM/100 ML BAG IVPB SCH ×2 (03:38→06:24)
[2017-10-30] MEDS ORDERED: Magnesium Sulfate 1 gm in D5W 1 GM/100 ML BAG IVPB ONE (03:39)
[2017-10-30] MEDS ORDERED: Vancomycin 1 GM in Sodium Chloride 0.9% 200 ML IVPB STA (04:20)
[2017-10-30] MEDS ORDERED: Potassium Chloride 20 mEq ER Tab PO STA ×3 (05:44→06:08)
[2017-10-30] MEDS ORDERED: Albuterol-Ipratrop 3 mg / 0.5 (3 ml) UD INH PRN (05:48)
--- NOTE | 2017-10-30 06:04 | CP.PCM.HP ---
<Marissa Walsh - Last Filed: 10/30/17 06:43> History of Present Illness - History of Present Illness History of Present Illness: CC: leg pain HPI: Patient is a 57 y/o M with PMHx of asthma, cirrhosis, Hep C (treated 1 year ago), HTN who presents for LE pain and swelling. Patient says he has lower extremity cellulitis on and and off for many years, however today his leg became very swollen and painful. Patient also complains of dull midsternal chest pain which he rates 7/10. He has central abdominal pain which he explains is sharp and rates it 7/10. Patient admits to 6 episodes of nonbloody diarrhea today. Patient also had one episode of vomiting up green today. Patient also admits to shortness of breath. Patient normally uses his inhaler twice a day, but says he just ran out. All: NKDA PMHx: asthma, cirrhosis, Hep C (treated 1 year ago), HTN, cellulitis Psurg: biopsy of left leg (benign) Social: used to smoke 1 ppd, now smoking 4 cigarettes per day - 30 pack years, stopped using IV heroin 2 years (used for 10 years), no alcohol Present on Admission - Present on Admission Any Indicators Present on Admission: No History of DVT/PE: No History of Uncontrolled Diabetes: No Urinary Catheter: No Decubitus Ulcer Present: No Review of Systems - Constitutional Constitutional: absent: Fever - EENT Eyes: absent: Blurred Vision Nose/Mouth/Throat: absent: Sore Throat - Cardiovascular Cardiovascular: Chest Pain, Dyspnea, Pedal Edema - Respiratory Respiratory: Wheezing - Gastrointestinal Gastrointestinal: Abdominal Pain, Diarrhea, Nausea, Vomiting. absent: Constipation - Genitourinary Genitourinary: absent: Difficulty Urinating - Integumentary Integumentary: absent: Rash Past Patient History - Infectious Disease Hx of Infectious Diseases: None - Past Medical History & Family History Past Medical History?: Yes - Past Social History Smoking Status: Light Smoker < 10 Cigarettes Daily - CARDIAC Hx Hypertension: Yes - PULMONARY Hx Asthma: Yes Hx Chronic Obstructive Pulmonary Disease (COPD): Yes Hx Pneumonia: Yes - NEUROLOGICAL Hx Neurological Disorder: No - HEENT Hx HEENT Problems: No - RENAL Hx Chronic Kidney Disease: No - ENDOCRINE/METABOLIC Hx Endocrine Disorders: No - HEMATOLOGICAL/ONCOLOGICAL Hx Blood Disorders: Yes Hx Cirrhosis: Yes Hx Hepatitis C: Yes - INTEGUMENTARY Hx Dermatological Problems: Yes Hx Cellulitis: Yes - MUSCULOSKELETAL/RHEUMATOLOGICAL Hx Musculoskeletal Disorders: No - GASTROINTESTINAL Hx Gall Bladder Disease: Yes (GALLSTONES) - GENITOURINARY/GYNECOLOGICAL Hx Genitourinary Disorders: No - PSYCHIATRIC Hx Substance Use: No (RECOVERYING 2.5 YRS. Previously used heroin IV) - SURGICAL HISTORY Hx Surgeries: Yes Other/Comment: Biopsy to left lower leg 2016 - ANESTHESIA Hx Anesthesia: Yes Hx Anesthesia Reactions: No Hx Malignant Hyperthermia: No Meds Allergies/Adverse Reactions: Allergies Allergy/AdvReac Type Severity Reaction Status Date / Time No Known Allergies Allergy Verified 10/30/17 01:19 Physical Exam - Constitutional Appears: Non-toxic, No Acute Distress - Head Exam Head Exam: ATRAUMATIC, NORMAL INSPECTION, NORMOCEPHALIC - Eye Exam Eye Exam: EOMI, Normal appearance - ENT Exam ENT Exam: Mucous Membranes Moist - Respiratory Exam Respiratory Exam: Wheezes, NORMAL BREATHING PATTERN - Cardiovascular Exam Cardiovascular Exam: Tachycardia, RRR, +S1, +S2 - GI/Abdominal Exam GI & Abdominal Exam: Normal Bowel Sounds, Soft, Tenderness Additional comments: right sided ecchymosis - Extremities Exam Extremities exam: Positive for: pedal edema, tenderness Additional comments: left leg erythema and edema - Neurological Exam Neurological exam: Alert, Oriented x3 - Psychiatric Exam Psychiatric exam: Normal Affect, Normal Mood - Skin Skin Exam: Warm Additional comments: left leg edema and erythema Results - Vital Signs Recent Vital Signs: Last Vital Signs Temp 98.8 F 10/30/17 05:28 Pulse 99 H 10/30/17 05:28 Resp 16 10/30/17 05:28 BP 131/51 L 10/30/17 05:28 Pulse Ox 98 10/30/17 05:39 - Labs Result Diagrams: 10/30/17 02:02 10/30/17 02:02 Labs: Laboratory Results - last 24 hr 10/30/17 10/30/17 10/30/17 02:02 02:02 03:08 WBC 14.7 H RBC 3.99 L Hgb 11.7 L Hct 34.4 L MCV 86.2 MCH 29.3 MCHC 34.0 RDW 13.6 Plt Count 158 MPV 8.9 Neut % (Auto) 89.9 H Lymph % (Auto) 6.4 L [place] % (Auto) 3.7 Eos % (Auto) 0.0 Baso % (Auto) 0.0 Neut # (Auto) 13.2 H Lymph # (Auto) 0.9 L [place] # (Auto) 0.5 Eos # (Auto) 0.0 Baso # (Auto) 0.0 Neutrophils % (Manual) 85 H Band Neutrophils % 3 H Lymphocytes % (Manual) 7 L Monocytes % (Manual) 5 Platelet Estimate Normal Anisocytosis (manual) Slight ESR D-Dimer, Quantitative Sodium 140 Potassium 2.8 L Chloride 100 Carbon Dioxide 27 Anion Gap 15 BUN 32 H Creatinine 1.3 Est GFR ( Amer) > 60 Est GFR (Non-Af Amer) 57 Random Glucose 139 H Calcium 8.6 Total Bilirubin 0.7 AST 34 ALT 31 Alkaline Phosphatase 67 C-React Prot High Sens > 15.00 H Total Protein 7.5 Albumin 3.6 Globulin 3.9 Albumin/Globulin Ratio 0.9 L Amylase 47 Lipase 10/30/17 10/30/17 10/30/17 03:08 03:23 03:39 WBC RBC Hgb Hct MCV MCH MCHC RDW Plt Count MPV Neut % (Auto) Lymph % (Auto) [place] % (Auto) Eos % (Auto) Baso % (Auto) Neut # (Auto) Lymph # (Auto) [place] # (Auto) Eos # (Auto) Baso # (Auto) Neutrophils % (Manual) Band Neutrophils % Lymphocytes % (Manual) Monocytes % (Manual) Platelet Estimate Anisocytosis (manual) ESR 110 H D-Dimer, Quantitative 636 H Sodium Potassium Chloride Carbon Dioxide Anion Gap BUN Creatinine Est GFR ( Amer) Est GFR (Non-Af Amer) Random Glucose Calcium Total Bilirubin AST ALT Alkaline Phosphatase C-React Prot High Sens Total Protein Albumin Globulin Albumin/Globulin Ratio Amylase Lipase 30 Assessment & Plan - Assessment and Plan (Free Text) Assessment: LE Cellulitis D dimer 636 f/u LE dopplers Vanco 1 gm daily Toradol 30mg ivp q6h prn Elevated D Dimer r/o PE f/u CTA Abdominal pain known cholelithiasis f/u gallbladder and hepatic u/s f/u abd obstructive series Asthma duonebs q4h prn Hypokalemia K: 2.8 KDUR 40meq and Potassium Chloride ivpb 20meq x 2 repeat CMP at 1400 HTN Losartan 50mg po daily Prophylaxis Pepcid 20mg po BID SCDs contraindicated Discussed with Dr. David <Naseem David - Last Filed: 10/30/17 19:28> Results - Vital Signs Recent Vital Signs: Last Vital Signs Temp 97.9 F 10/30/17 15:45 Pulse 74 10/30/17 15:45 Resp 20 10/30/17 15:45 BP 112/64 10/30/17 15:45 Pulse Ox 96 10/30/17 15:45 - Labs Result Diagrams: 10/30/17 02:02 10/30/17 13:57 Labs: Laboratory Results - last 24 hr 10/30/17 10/30/17 10/30/17 02:02 02:02 03:08 WBC 14.7 H RBC 3.99 L Hgb 11.7 L Hct 34.4 L MCV 86.2 MCH 29.3 MCHC 34.0 RDW 13.6 Plt Count 158 MPV 8.9 Neut % (Auto) 89.9 H Lymph % (Auto) 6.4 L [place] % (Auto) 3.7 Eos % (Auto) 0.0 Baso % (Auto) 0.0 Neut # (Auto) 13.2 H Lymph # (Auto) 0.9 L [place] # (Auto) 0.5 Eos # (Auto) 0.0 Baso # (Auto) 0.0 Neutrophils % (Manual) 85 H Band Neutrophils % 3 H Lymphocytes % (Manual) 7 L Monocytes % (Manual) 5 Platelet Estimate Normal Anisocytosis (manual) Slight ESR D-Dimer, Quantitative Sodium 140 Potassium 2.8 L Chloride 100 Carbon Dioxide 27 Anion Gap 15 BUN 32 H Creatinine 1.3 Est GFR ( Amer) > 60 Est GFR (Non-Af Amer) 57 Random Glucose 139 H Calcium 8.6 Magnesium Total Bilirubin 0.7 AST 34 ALT 31 Alkaline Phosphatase 67 C-React Prot High Sens > 15.00 H Total Protein 7.5 Albumin 3.6 Globulin 3.9 Albumin/Globulin Ratio 0.9 L Triglycerides Cholesterol LDL Cholesterol Direct HDL Cholesterol Amylase 47 Lipase 10/30/17 10/30/17 10/30/17 03:08 03:23 03:39 WBC RBC Hgb Hct MCV MCH MCHC RDW Plt Count MPV Neut % (Auto) Lymph % (Auto) [place] % (Auto) Eos % (Auto) Baso % (Auto) Neut # (Auto) Lymph # (Auto) [place] # (Auto) Eos # (Auto) Baso # (Auto) Neutrophils % (Manual) Band Neutrophils % Lymphocytes % (Manual) Monocytes % (Manual) Platelet Estimate Anisocytosis (manual) ESR 110 H D-Dimer, Quantitative 636 H Sodium Potassium Chloride Carbon Dioxide Anion Gap BUN Creatinine Est GFR ( Amer) Est GFR (Non-Af Amer) Random Glucose Calcium Magnesium 1.7 Total Bilirubin AST ALT Alkaline Phosphatase C-React Prot High Sens Total Protein Albumin Globulin Albumin/Globulin Ratio Triglycerides Cancelled Cholesterol Cancelled LDL Cholesterol Direct Cancelled HDL Cholesterol Cancelled Amylase Lipase 30 10/30/17 13:57 WBC RBC Hgb Hct MCV MCH MCHC RDW Plt Count MPV Neut % (Auto) Lymph % (Auto) [place] % (Auto) Eos % (Auto) Baso % (Auto) Neut # (Auto) Lymph # (Auto) [place] # (Auto) Eos # (Auto) Baso # (Auto) Neutrophils % (Manual) Band Neutrophils % Lymphocytes % (Manual) Monocytes % (Manual) Platelet Estimate Anisocytosis (manual) ESR D-Dimer, Quantitative Sodium 139 Potassium 3.6 Chloride 103 Carbon Dioxide 23 Anion Gap 16 BUN 29 H Creatinine 1.1 Est GFR ( Amer) > 60 Est GFR (Non-Af Amer) > 60 Random Glucose 310 H Calcium 8.3 L Magnesium Total Bilirubin 0.4 AST 23 ALT 25 Alkaline Phosphatase 68 C-React Prot High Sens Total Protein 7.3 Albumin 3.6 Globulin 3.6 Albumin/Globulin Ratio 1.0 Triglycerides Cholesterol LDL Cholesterol Direct HDL Cholesterol Amylase Lipase Assessment & Plan - Date & Time Date: 10/30/17 (I have seen and examined the patient. I agree with the findings and plan of care as documented by Dr. Walsh. Patient with cellulitis. Vanco. Symptomatic management. Wound and blood cultures. Hypokalemia. Replete and recheck. History of Asthma. Nebs and oxygen as needed. Elevated d-dimer. Follow up CTA results. Monitor for acute changes.) Time: 19:26 Attending/Attestation - Attestation I have personally seen and examined this patient.: Yes I have fully participated in the care of the patient.: Yes I have reviewed all pertinent clinical information: Yes
[2017-10-30] MEDS ORDERED: Magnesium Sulfate 1 gm in D5W 1 GM/100 ML BAG IVPB SCH (07:00)
[2017-10-30] MEDS ORDERED: Iodixanol 320 MG/ML 100 ML BOTTLE IV ONE (08:00)
--- NOTE | 2017-10-30 09:53 | US ---
Date of service: 10/30/2017 HISTORY: cholelithiasis COMPARISON: None. TECHNIQUE: Sonographic evaluation of the right upper quadrant of the abdomen. FINDINGS: LIVER: Measures 20.2 cm in length. Diffusely increased echogenicity of the liver parenchyma. Consistent with fatty infiltration. Mild hepatomegaly. Smooth contour. No mass. No biliary ductal dilatation. GALLBLADDER: Cholelithiasis. No significant mural thickening. No pericholecystic fluid. Negative sonographic Urias sign. COMMON BILE DUCT: Measures 4 mm. No stones. No dilatation. PANCREAS: Unremarkable as visualized. No mass. No ductal dilatation. RIGHT KIDNEY: Measures 10.2 cm in length. Normal echogenicity. No calculus, mass, or hydronephrosis. AORTA: No aneurysmal dilatation. IVC: Unremarkable. OTHER FINDINGS: None . IMPRESSION: Mild hepatomegaly with diffuse fatty infiltration. Cholelithiasis without evidence of cholecystitis.
--- NOTE | 2017-10-30 10:09 | CT ---
Date of service: 10/30/2017 PROCEDURE: CT Chest with contrast (Pulmonary Angiogram) HISTORY: elevated d dimer, LE swelling, sob COMPARISON: None available. TECHNIQUE: Axial computed tomography images were obtained of the chest in the pulmonary arterial phase of enhancement. Coronal and sagittal reformatted images were created and reviewed. Intravenous contrast dose: 100 mL Visipaque 320 Radiation dose: Total exam DLP = 570.50 mGy-cm. This CT exam was performed using one or more of the following dose reduction techniques: Automated exposure control, adjustment of the mA and/or kV according to patient size, and/or use of iterative reconstruction technique. FINDINGS: PULMONARY ARTERIES: Unremarkable. No pulmonary embolismExamination technically limited. Inadequate opacification of the pulmonary arteries results in inability to accurately detect pulmonary embolism in segmental/subsegmental pulmonary artery branches. Main pulmonary artery and lobar branches show no evidence of pulmonary embolism. . AORTA: Unremarkable LUNGS: No infiltrate. 8 mm partially solid nodule anterior superior right middle lobe abutting the minor fissure. Possible intrapulmonary lymph node. However, slight irregularity suggests that followup is advised. As per Fleischner society criteria, followup with noncontrast chest CT examination in 3-6 months is advised. No other pulmonary mass. PLEURAL SPACES: Unremarkable. No effusion or pneumothorax. HEART: Unremarkable. No cardiomegaly. No significant pericardial effusion. LYMPH NODES: No lymphadenopathy. BONES, CHEST WALL: Unremarkable. No fracture or destructive lesion OTHER FINDINGS: Cholelithiasis. 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 Curvilinear mural calcification noted in the gallbladder neck region. IMPRESSION: Limited examination for evaluation of pulmonary embolism. No evidence of pulmonary embolism in main and lobar pulmonary arteries. Unable to adequately evaluate segmental and subsegmental pulmonary artery branches at this time. No infiltrate. Partial solid 8 mm nodule right middle lobe abutting the minor fissure. Possible intrapulmonary lymph node however followup with noncontrast chest CT examination is advised in 3 6 months as per Fleischner society criteria. Cholelithiasis. 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
--- NOTE | 2017-10-30 11:44 | RAD ---
HISTORY: abd pain COMPARISON: Chest x-ray performed 10/14/17 TECHNIQUE: Chest PA and lateral FINDINGS: Examination limited by habitus. LUNGS: Mild vascular prominence may reflect pulmonary venous congestion. No focal consolidation identified. Please note that chest x-ray has limited sensitivity for the detection of pulmonary masses. PLEURA: No significant pleural effusion identified. No definite pneumothorax . CARDIOVASCULAR: Heart size appears top normal. OSSEOUS STRUCTURES: Osseous demineralization. Degenerative changes. VISUALIZED UPPER ABDOMEN: Unremarkable. OTHER FINDINGS: None. IMPRESSION: Mild vascular prominence may reflect pulmonary venous congestion.
--- NOTE | 2017-10-30 11:55 | RAD ---
Abdomen five views History: Abdominal pain. Comparison: CT scan dated 10/12/2017 Findings: Multiple dilated loops of small bowel seen throughout the abdomen suggestive for ileus and/or partial small bowel obstruction. Fecal retention in the colon. Impression: Multiple dilated loops of small bowel seen throughout the abdomen suggestive for ileus and/or partial small bowel obstruction. Fecal retention in the colon.
--- NOTE | 2017-10-30 13:53 | CP.PCM.CON ---
History of Present Illness - History of Present Illness History of Present Illness: 57 y/o reports having left lower extremity swelling, redness and pain as well as diarrhea ID consulted for antibiotic maangement Hx: hypertension, COPD, Pneumonia, Hepatitis C, Cirrhosis, Cellultits of lle (1 year ago), GI Disorder, Gall Bladder Dz, psychophysiologic disorder Sx: Biopsy to left lower leg 2016 Review of Systems - Review of Systems All systems: reviewed and no additional remarkable complaints except Past Patient History - Infectious Disease Hx of Infectious Diseases: None - Past Medical History & Family History Past Medical History?: Yes - Past Social History Smoking Status: Light Smoker < 10 Cigarettes Daily - CARDIAC Hx Hypertension: Yes - PULMONARY Hx Asthma: Yes Hx Chronic Obstructive Pulmonary Disease (COPD): Yes Hx Pneumonia: Yes - NEUROLOGICAL Hx Neurological Disorder: No - HEENT Hx HEENT Problems: No - RENAL Hx Chronic Kidney Disease: No - ENDOCRINE/METABOLIC Hx Endocrine Disorders: No - HEMATOLOGICAL/ONCOLOGICAL Hx Blood Disorders: Yes Hx Cirrhosis: Yes Hx Hepatitis C: Yes - INTEGUMENTARY Hx Dermatological Problems: Yes Hx Cellulitis: Yes - MUSCULOSKELETAL/RHEUMATOLOGICAL Hx Musculoskeletal Disorders: No - GASTROINTESTINAL Hx Gall Bladder Disease: Yes (GALLSTONES) - GENITOURINARY/GYNECOLOGICAL Hx Genitourinary Disorders: No - PSYCHIATRIC Hx Substance Use: No (RECOVERYING 2.5 YRS. Previously used heroin IV) - SURGICAL HISTORY Hx Surgeries: Yes Other/Comment: Biopsy to left lower leg 2016 - ANESTHESIA Hx Anesthesia: Yes Hx Anesthesia Reactions: No Hx Malignant Hyperthermia: No Meds Allergies/Adverse Reactions: Allergies Allergy/AdvReac Type Severity Reaction Status Date / Time No Known Allergies Allergy Verified 10/30/17 01:19 - Medications Medications: Current Medications Albuterol/Ipratropium (Duoneb 3 Mg/0.5 Mg (3 Ml) Ud) 3 ml INH RQ4 PRN PRN Reason: Shortness of Breath Famotidine (Pepcid) 20 mg PO BID [facility] Last Admin: 10/30/17 11:32 Dose: 20 mg Heparin Sodium (Porcine) (Heparin) 5,000 units SC Q12 [facility] Last Admin: 10/30/17 11:32 Dose: 5,000 units Ceftriaxone Sodium 1 gm/ (Sodium Chloride) 100 mls @ 100 mls/hr IVPB Q12H [facility] PRN Reason: Protocol Vancomycin/Sodium Chloride (Vancomycin 1 Gm/Ns 200 Ml) 1 gm in 200 mls @ 133.333 mls/hr IVPB Q12H [facility] PRN Reason: Protocol Stop: 11/04/17 17:31 Ketorolac Tromethamine (Toradol) 30 mg IVP Q6 PRN PRN Reason: Pain, severe (8-10) Lactobacillus Acidophilus (Bacid Acidophilus) 1 cap PO BID [facility] Losartan Potassium (Cozaar) 50 mg PO DAILY [facility] Last Admin: 10/30/17 11:32 Dose: 50 mg Physical Exam - Constitutional Appears: No Acute Distress, Chronically Ill - Head Exam Head Exam: ATRAUMATIC, NORMOCEPHALIC - Eye Exam Eye Exam: PERRL. absent: Scleral icterus - ENT Exam ENT Exam: Mucous Membranes Dry - Neck Exam Neck exam: Negative for: Lymphadenopathy - Respiratory Exam Respiratory Exam: Decreased Breath Sounds - Cardiovascular Exam Cardiovascular Exam: REGULAR RHYTHM - GI/Abdominal Exam GI & Abdominal Exam: Diminished Bowel Sounds, Soft. absent: Tenderness - Rectal Exam Rectal Exam: Deferred - Exam Exam: NORMAL INSPECTION - Extremities Exam Extremities exam: Positive for: pedal edema, tenderness, pedal pulses present. Negative for: calf tenderness - Back Exam Back exam: absent: CVA tenderness (L), CVA tenderness (R), paraspinal tenderness - Neurological Exam Neurological exam: Alert, CN II-XII Intact, Oriented x3, Reflexes Normal - Psychiatric Exam Psychiatric exam: Depressed - Skin Skin Exam: Dry, Erythema - Additional Findings Additional findings: massive swelling left leg- warm tender red and swollen LLE no drainage no open wound foot hygiene poor Results - Vital Signs Recent Vital Signs: Last Vital Signs Temp 98.3 F 10/30/17 07:46 Pulse 87 10/30/17 11:30 Resp 20 10/30/17 07:46 BP 146/76 10/30/17 11:30 Pulse Ox 98 10/30/17 07:46 - Labs Result Diagrams: 10/30/17 02:02 10/30/17 02:02 Labs: Laboratory Results - last 24 hr 10/30/17 10/30/17 10/30/17 02:02 02:02 03:08 WBC 14.7 H RBC 3.99 L Hgb 11.7 L Hct 34.4 L MCV 86.2 MCH 29.3 MCHC 34.0 RDW 13.6 Plt Count 158 MPV 8.9 Neut % (Auto) 89.9 H Lymph % (Auto) 6.4 L [place] % (Auto) 3.7 Eos % (Auto) 0.0 Baso % (Auto) 0.0 Neut # (Auto) 13.2 H Lymph # (Auto) 0.9 L [place] # (Auto) 0.5 Eos # (Auto) 0.0 Baso # (Auto) 0.0 Neutrophils % (Manual) 85 H Band Neutrophils % 3 H Lymphocytes % (Manual) 7 L Monocytes % (Manual) 5 Platelet Estimate Normal Anisocytosis (manual) Slight ESR D-Dimer, Quantitative Sodium 140 Potassium 2.8 L Chloride 100 Carbon Dioxide 27 Anion Gap 15 BUN 32 H Creatinine 1.3 Est GFR ( Amer) > 60 Est GFR (Non-Af Amer) 57 Random Glucose 139 H Calcium 8.6 Magnesium Total Bilirubin 0.7 AST 34 ALT 31 Alkaline Phosphatase 67 C-React Prot High Sens > 15.00 H Total Protein 7.5 Albumin 3.6 Globulin 3.9 Albumin/Globulin Ratio 0.9 L Triglycerides Cholesterol LDL Cholesterol Direct HDL Cholesterol Amylase 47 Lipase 10/30/17 10/30/17 10/30/17 03:08 03:23 03:39 WBC RBC Hgb Hct MCV MCH MCHC RDW Plt Count MPV Neut % (Auto) Lymph % (Auto) [place] % (Auto) Eos % (Auto) Baso % (Auto) Neut # (Auto) Lymph # (Auto) [place] # (Auto) Eos # (Auto) Baso # (Auto) Neutrophils % (Manual) Band Neutrophils % Lymphocytes % (Manual) Monocytes % (Manual) Platelet Estimate Anisocytosis (manual) ESR 110 H D-Dimer, Quantitative 636 H Sodium Potassium Chloride Carbon Dioxide Anion Gap BUN Creatinine Est GFR ( Amer) Est GFR (Non-Af Amer) Random Glucose Calcium Magnesium 1.7 Total Bilirubin AST ALT Alkaline Phosphatase C-React Prot High Sens Total Protein Albumin Globulin Albumin/Globulin Ratio Triglycerides Cancelled Cholesterol Cancelled LDL Cholesterol Direct Cancelled HDL Cholesterol Cancelled Amylase Lipase 30 Assessment & Plan (1) Abdominal pain Status: Acute (2) Acute narcotic intoxication Status: Acute (3) Asthma Status: Acute (4) COPD exacerbation Status: Acute (5) Cellulitis of left leg Status: Acute - Assessment and Plan (Free Text) Assessment: await cultures cont IV antibiotics drug detox services
[2017-10-30 14:25] LABS: ALBUMIN 3.6 g/dL (3.5-5.0); ALT/SGPT 25 U/L (21-72); AST/SGOT 23 U/L (17-59); BLOOD UREA NITROGEN 29 mg/dL (9-20); CALCIUM 8.3 mg/dl (8.6-10.4); GFR AFRICAN-AMERICAN > 60; GFR NON-AFRICAN AMERICAN > 60
--- NOTE | 2017-10-30 15:14 | CP.PCM.PN ---
<Clay Pisano - Last Filed: 10/30/17 18:35> Subjective - Date & Time of Evaluation Date of Evaluation: 10/30/17 Time of Evaluation: 09:30 - Subjective Subjective: PGY-1 Medicine Progress Note for Dr. Gong Service Patient was seen and examined at [facility]. Patient complains that his heart is racing and states that he had some SOB last night which was relieved by the breathing treatment. Patient states that he had some chills, diaphoresis, and diarrhea x6 last night, but all symptoms have resolved by the morning. Patient states that the abd pain he had experienced on admission has subsided. Patient denies fever, dizziness, headache, chest pain, nausea, and vomiting. Objective - Vital Signs/Intake and Output Vital Signs (last 24 hours): Temp Pulse Resp BP Pulse Ox 98.3 F 87 20 146/76 98 10/30/17 07:46 10/30/17 11:30 10/30/17 07:46 10/30/17 11:30 10/30/17 07:46 - Medications Medications: Current Medications Albuterol/Ipratropium (Duoneb 3 Mg/0.5 Mg (3 Ml) Ud) 3 ml INH RQ4 PRN PRN Reason: Shortness of Breath Famotidine (Pepcid) 20 mg PO BID [facility] Last Admin: 10/30/17 11:32 Dose: 20 mg Heparin Sodium (Porcine) (Heparin) 5,000 units SC Q12 [facility] Last Admin: 10/30/17 11:32 Dose: 5,000 units Ceftriaxone Sodium 1 gm/ (Sodium Chloride) 100 mls @ 100 mls/hr IVPB Q12H [facility] PRN Reason: Protocol Vancomycin/Sodium Chloride (Vancomycin 1 Gm/Ns 200 Ml) 1 gm in 200 mls @ 133.333 mls/hr IVPB Q12H [facility] PRN Reason: Protocol Stop: 11/04/17 17:31 Ketorolac Tromethamine (Toradol) 30 mg IVP Q6 PRN PRN Reason: Pain, severe (8-10) Lactobacillus Acidophilus (Bacid Acidophilus) 1 cap PO BID [facility] Losartan Potassium (Cozaar) 50 mg PO DAILY [facility] Last Admin: 10/30/17 11:32 Dose: 50 mg - Labs Labs: 10/30/17 02:02 10/30/17 13:57 - Constitutional Appears: Non-toxic, No Acute Distress - Head Exam Head Exam: NORMAL INSPECTION, NORMOCEPHALIC - Eye Exam Eye Exam: EOMI, Normal appearance. absent: Nystagmus, Scleral icterus - ENT Exam ENT Exam: Mucous Membranes Moist, Normal Exam - Respiratory Exam Respiratory Exam: Clear to Ausculation Bilateral, NORMAL BREATHING PATTERN. absent: Rales, Rhonchi, Wheezes - Cardiovascular Exam Cardiovascular Exam: REGULAR RHYTHM, +S1, +S2 Additional comments: slightly tachy (99-100) - GI/Abdominal Exam GI & Abdominal Exam: Distended, Soft, Normal Bowel Sounds. absent: Firm, Guarding, Rigid, Tenderness - Extremities Exam Extremities Exam: Normal Inspection. absent: Calf Tenderness Additional comments: LE is still swollen and erythematous, but is improving as indicated by the swelling receding from the demarcated line drawn previously. no edema on right leg - Back Exam Back Exam: NORMAL INSPECTION. absent: CVA tenderness (L), CVA tenderness (R) - Neurological Exam Neurological Exam: Alert, Awake, Oriented x3 - Psychiatric Exam Psychiatric exam: Normal Affect, Normal Mood - Skin Skin Exam: Intact, Normal Color Assessment and Plan - Assessment and Plan (Free Text) Assessment: 57M with PMHx of asthma, cirrhosis, Hep C (treated 1 year ago), HTN presents to the hospital for evaluation of LE pain and swelling; found to have cellulitis; blood cultures pending; being treated empirically with vancomycin and 1 x dose of ceftriaxone Plan: LE cellulitis Vancomycin/NaCl 1gm in 200mls (Vanc trough for 10/31 @ 5pm) Ceftriaxone 1gm @100mls/hr IVPB q12h Toradol 30mg IVP q6 PRN Blood Cultures pending D-dimer 636 (likely elevated due to cellulitis infection) LE dopplers negative for DVTs bilaterally Chest CT 10/30: Limited examination for evaluation of PE. No evidence of pe in main and lobar pulmonary arteries. unable to adequately evaluate segmental and subsegmental pulmonary artery branches at this time. No infiltrate. Partial solid 8 mm nodule right middle lobe abutting the minor fissure. Possible intrapulmonary lymph node howerever followup with noncontrast chest CT examination is advised in 3-6 months as per Felischner society criteria Gallstones Chest CT 10/30: Cholelithiasis. Possible porcelain gallbladder U/S 10/30: mild hepatomegaly with diffuse fatty infiltration. Cholelithiasis w/o evidence of cholecystitis Asthma Duoneb 3mg/0.5mg Hypokalemia 2/2 diarrhea Lactobacillus Acidophilus 1 cap PO bid Cirrhosis Hepatitis C treatment with Interferon for 12 months Follows up outpatient for management (next appointment beginning of next month) No ascites, caput medusae, or varicaeal bleeding noted HTN Losartan 50mg PO PPX GI-ppx: Pepcid 20mg DVT-ppx: Heparin 5,000 units SC q12 <Valeriano Serra - Last Filed: 10/30/17 19:02> Objective - Vital Signs/Intake and Output Vital Signs (last 24 hours): Temp Pulse Resp BP Pulse Ox 97.9 F 74 20 112/64 96 10/30/17 15:45 10/30/17 15:45 10/30/17 15:45 10/30/17 15:45 10/30/17 15:45 Intake and Output: 10/30/17 10/30/17 06:59 18:59 Intake Total 680 Balance 680 - Medications Medications: Current Medications Albuterol/Ipratropium (Duoneb 3 Mg/0.5 Mg (3 Ml) Ud) 3 ml INH RQ4 PRN PRN Reason: Shortness of Breath Famotidine (Pepcid) 20 mg PO BID [facility] Last Admin: 10/30/17 17:42 Dose: 20 mg Heparin Sodium (Porcine) (Heparin) 5,000 units SC Q12 [facility] Last Admin: 10/30/17 11:32 Dose: 5,000 units Ceftriaxone Sodium 1 gm/ (Sodium Chloride) 100 mls @ 100 mls/hr IVPB Q12H [facility] PRN Reason: Protocol Last Admin: 10/30/17 15:03 Dose: 100 mls/hr Vancomycin/Sodium Chloride (Vancomycin 1 Gm/Ns 200 Ml) 1 gm in 200 mls @ 133.333 mls/hr IVPB Q12H [facility] PRN Reason: Protocol Stop: 11/04/17 17:31 Last Admin: 10/30/17 17:42 Dose: 133.333 mls/hr Ketorolac Tromethamine (Toradol) 30 mg IVP Q6 PRN PRN Reason: Pain, severe (8-10) Lactobacillus Acidophilus (Bacid Acidophilus) 1 cap PO BID [facility] Last Admin: 10/30/17 17:42 Dose: 1 cap Losartan Potassium (Cozaar) 50 mg PO DAILY [facility] Last Admin: 10/30/17 11:32 Dose: 50 mg - Labs Labs: 10/30/17 02:02 10/30/17 13:57 Attending/Attestation - Attestation I have personally seen and examined this patient.: Yes I have fully participated in the care of the patient.: Yes I have reviewed all pertinent clinical information, including history, physical exam and plan: Yes Notes (Text): 10/30/17 18:53 Patient was seen and examined at 11:45 AM 10/30/17 Care of this patient was discussed in detail with resident Also on ROS: Chest pain has resolved Diarrhea has resolved as he had soft bowel movement this morning N/V has resolved as he tolerated his breakfast this morning Abdominal pain has resolved: he is moving his bowels normally and is passing flatus Also on Exam: Central obesity therefore Liver and Spleen could not be adequately palpated Erythema and some warmth present on Left LE from the feet to the just superior to the knee. The erythema and warmth have receded from the ink that was demarcating the most superior border He was counseled on stopping smoking and he is fully aware of the dangers to his health Ceftriaxone 1 gm IV Q12H was added to the Vancomycin 1 gm IV Q12H F/U Vancomycin Trough at 5 PM 10/31/17 with goal Trough between 15 and 20 Findings of Abdominal Obstruction series noted: possible ileus or partial SBO. However, patient is moving his bowels, passing flatus, and tolerating his meals. Therefore we will just monitor for now. Valeriano Serra D.O.
[2017-10-30] MEDS: Vancomycin 1 gm/NS 200 ml 1 GM/200 ML BAG IVPB SCH (17:42)
[2017-10-30] MEDS: Lactobacillus Acidophilus 500 MU Cap PO SCH (17:42)
[2017-10-31] MEDS ORDERED: Vancomycin 1 GM in Sodium Chloride 0.9% 200 ML IVPB SCH (05:30)
[2017-10-31] MEDS: Vancomycin 1 gm/NS 200 ml 1 GM/200 ML BAG IVPB SCH ×2 (06:05→17:08)
[2017-10-31 07:08] LABS: BASO % 0.1 % (0.0-2.0); HEMOGLOBIN 10.8 g/dL (12.0-18.0); LYMPH # 1.2 K/uL (1.0-4.3); LYMPH % 8.1 % (20.0-40.0); MEAN CORPUSCULAR HEMOGLOBIN 28.9 pg (27.0-31.0); MEAN CORPUSCULAR HGB CONC 33.2 g/dL (33.0-37.0); MEAN PLATELET VOLUME 9.3 fL (7.2-11.7); MONO # 0.6 K/uL (0.0-0.8); MONO % 4.1 % (0.0-10.0); NEUT # 13.4 K/uL (1.8-7.0); NEUT % 87.7 % (50.0-75.0); PLATELET COUNT 146 K/uL (130-400); RBC 3.74 Mil/uL (4.40-5.90); WHITE BLOOD COUNT 15.3 K/uL (4.8-10.8)
[2017-10-31 07:19] LABS: ALBUMIN 3.3 g/dL (3.5-5.0); ALT/SGPT 25 U/L (21-72); AST/SGOT 9 U/L (17-59); BLOOD UREA NITROGEN 33 mg/dL (9-20); CALCIUM 7.7 mg/dl (8.6-10.4); GFR AFRICAN-AMERICAN > 60; GFR NON-AFRICAN AMERICAN > 60
[2017-10-31 08:54] LABS: ANISOCYTOSIS SLIGHT; BANDS 2 % (0-2); HYPOCHROMIC SLIGHT; LYMPHOCYTE 8 % (20-40); MONOCYTE 4 % (0-10); NEUTROPHIL 86 % (50-75); PLATELET ESTIMATE NORMAL (NORMAL); POIKILOCYTOSIS SLIGHT; TOTAL CELLS COUNTED 100
--- NOTE | 2017-10-31 08:56 | VASCLAB ---
Date of service: 10/30/2017 PROCEDURE: Lower Extremity Venous Duplex Exam. HISTORY: d-dimer; sever LLE swelling PRIORS: None. TECHNIQUE: Bilateral common femoral, femoral, popliteal and posterior tibial, peroneal and great saphenous veins were evaluated. Flow was assessed with color Doppler, compressibility, assessment of phasic flow and augmentation response. Report prepared by Anatoly Hughes, [place], RVT FINDINGS: RIGHT: 1. Common Femoral Vein: 1.1. Compressibility - Fully compressible: Thrombus - None : Flow - Phasic: Augmentation -Normal: Reflux - None. 2. Femoral Vein: 2.1. Compressibility - Fully compressible: Thrombus - None : Flow - Phasic: Augmentation -Normal: Reflux - None. 3. Popliteal Vein: 3.1. Compressibility - Fully compressible: Thrombus - None : Flow - Phasic: Augmentation -Normal: Reflux - None. 4. Posterior Tibial Vein: 4.1. Compressibility - Fully compressible: Thrombus - None: Flow - Phasic: Augmentation -Normal: Reflux - None. 5. Peroneal Vein: 5.1. Compressibility - Fully compressible: Thrombus - None: Flow - Phasic: Augmentation -Normal: Reflux - None. 6. Great Saphenous Vein: 6.1. Compressibility - Fully compressible: Thrombus - None: Flow - Phasic: Augmentation - Normal: Reflux - None. LEFT: 1. Common Femoral Vein: 1.1. Compressibility - Fully compressible: Thrombus - None: Flow - Phasic: Augmentation -Normal: Reflux - None. 2. Femoral Vein: 2.1. Compressibility - Fully compressible: Thrombus - None: Flow - Phasic: Augmentation -Normal: Reflux - None. 3. Popliteal Vein: 3.1. Compressibility - Fully compressible: Thrombus - None : Flow - Phasic: Augmentation -Normal: Reflux - None. 4. Posterior Tibial Vein: 4.1. Compressibility - Fully compressible: Thrombus - None: Flow - Phasic: Augmentation -Normal: Reflux - None. 5. Peroneal Vein: 5.1. Compressibility - Fully compressible: Thrombus - None: Flow - Phasic: Augmentation -Normal: Reflux - None. 6. Great Saphenous Vein: 6.1. Compressibility - Fully compressible: Thrombus - None: Flow - Phasic: Augmentation - Normal: Reflux - None. OTHER FINDINGS: Right: None significant. Left: None significant. IMPRESSION: Right: No evidence of deep or superficial vein thrombosis of the right lower extremity. Normal valve function noted of the right side. Left: No evidence of deep or superficial vein thrombosis of the left lower extremity. Normal valve function noted of the left side.
--- NOTE | 2017-10-31 09:14 | CP.PCM.PN ---
Subjective - Date & Time of Evaluation Date of Evaluation: 10/31/17 Time of Evaluation: 09:11 - Subjective Subjective: PGY-1 Medicine Progress Note for Dr. Abdalla's service Patient seen and examined at bedside. Patient offers no acute complaints. Patient denies chest pain, leg pain, calf tenderness, fevers, chills, nausea, vomiting, constipation or diarrhea, sob, weakness, or pain with ambulation. Objective - Vital Signs/Intake and Output Vital Signs (last 24 hours): Temp Pulse Resp BP Pulse Ox 97.6 F 73 20 129/58 L 98 10/31/17 07:00 10/31/17 07:00 10/31/17 07:00 10/31/17 07:00 10/31/17 07:00 Intake and Output: 10/31/17 10/31/17 06:59 18:59 Intake Total 520 Output Total 200 Balance 320 - Medications Medications: Current Medications Albuterol/Ipratropium (Duoneb 3 Mg/0.5 Mg (3 Ml) Ud) 3 ml INH RQ4 PRN PRN Reason: Shortness of Breath Docusate Sodium (Colace) 100 mg PO TID [facility] Famotidine (Pepcid) 20 mg PO BID [facility] Last Admin: 10/30/17 17:42 Dose: 20 mg Heparin Sodium (Porcine) (Heparin) 5,000 units SC Q12 [facility] Last Admin: 10/30/17 21:19 Dose: 5,000 units Ceftriaxone Sodium 1 gm/ (Sodium Chloride) 100 mls @ 100 mls/hr IVPB Q12H [facility] PRN Reason: Protocol Last Admin: 10/31/17 03:44 Dose: 100 mls/hr Vancomycin/Sodium Chloride (Vancomycin 1 Gm/Ns 200 Ml) 1 gm in 200 mls @ 133.333 mls/hr IVPB Q12H [facility] PRN Reason: Protocol Stop: 11/04/17 17:31 Last Admin: 10/31/17 06:05 Dose: 133.333 mls/hr Ketorolac Tromethamine (Toradol) 30 mg IVP Q6 PRN PRN Reason: Pain, severe (8-10) Lactobacillus Acidophilus (Bacid Acidophilus) 1 cap PO BID [facility] Last Admin: 10/30/17 17:42 Dose: 1 cap Losartan Potassium (Cozaar) 50 mg PO DAILY [facility] Last Admin: 10/30/17 11:32 Dose: 50 mg - Labs Labs: 10/31/17 06:56 10/31/17 06:56 - Constitutional Appears: Non-toxic, No Acute Distress - Head Exam Head Exam: NORMAL INSPECTION, NORMOCEPHALIC - Eye Exam Eye Exam: EOMI, Normal appearance. absent: Nystagmus, Scleral icterus - Respiratory Exam Respiratory Exam: Clear to Ausculation Bilateral, NORMAL BREATHING PATTERN. absent: Rales, Rhonchi, Wheezes - Cardiovascular Exam Cardiovascular Exam: REGULAR RHYTHM, +S1, +S2. absent: Tachycardia - GI/Abdominal Exam GI & Abdominal Exam: Soft, Normal Bowel Sounds. absent: Distended, Firm, Guarding, Rigid, Tenderness - Extremities Exam Additional comments: no tenderness to palpation left leg swelling receding from demarcated lines erythematous left leg and warm no oozing, drainage, or pus noted swelling extends from below knee to feet - Back Exam Back Exam: NORMAL INSPECTION. absent: CVA tenderness (L), CVA tenderness (R) - Neurological Exam Neurological Exam: Alert, Awake, Oriented x3 - Psychiatric Exam Psychiatric exam: Normal Affect, Normal Mood - Skin Skin Exam: Intact, Normal Color, Warm Assessment and Plan - Assessment and Plan (Free Text) Assessment: 57M with PMHx of asthma, cirrhosis, Hep C (treated 1 year ago), HTN presents to the hospital for evaluation of LE pain and swelling; found to have cellulitis; blood cultures pending; being treated empirically with vancomycin and ceftriaxone 1 gm @100mls/hr Plan: LE cellulitis Vancomycin/NaCl 1gm in 200mls (Vanc trough for 10/31 @ 5pm) Ceftriaxone 1gm @100mls/hr IVPB q12h Toradol 30mg IVP q6 PRN Blood Cultures negative D-dimer 636 (likely elevated due to cellulitis infection) LE dopplers negative for DVTs bilaterally Chest CT 10/30: Limited examination for evaluation of PE. No evidence of pe in main and lobar pulmonary arteries. unable to adequately evaluate segmental and subsegmental pulmonary artery branches at this time. No infiltrate. Partial solid 8 mm nodule right middle lobe abutting the minor fissure. Possible intrapulmonary lymph node howerever followup with noncontrast chest CT examination is advised in 3-6 months as per Felischner society criteria Gallstones Chest CT 10/30: Cholelithiasis. Possible porcelain gallbladder U/S 10/30: mild hepatomegaly with diffuse fatty infiltration. Cholelithiasis w/o evidence of cholecystitis Asthma Duoneb 3mg/0.5mg Hypokalemia 2/2 diarrhea Lactobacillus Acidophilus 1 cap PO bid Cirrhosis Hepatitis C treatment with Interferon for 12 months Follows up outpatient for management (next appointment beginning of next month) No ascites, caput medusae, or varicaeal bleeding noted HTN Losartan 50mg PO PPX GI ppx: Pepcid 20mg DVT ppx: Heparin 5,000 units SC q12
--- NOTE | 2017-10-31 09:38 | CP.PCM.PN ---
Subjective - Date & Time of Evaluation Date of Evaluation: 10/31/17 Time of Evaluation: 10:00 - Subjective Subjective: awake alert nad afebrile Objective - Vital Signs/Intake and Output Vital Signs (last 24 hours): Temp Pulse Resp BP Pulse Ox 97.6 F 73 20 129/58 L 98 10/31/17 07:00 10/31/17 07:00 10/31/17 07:00 10/31/17 07:00 10/31/17 07:00 Intake and Output: 10/31/17 10/31/17 06:59 18:59 Intake Total 520 Output Total 200 Balance 320 - Medications Medications: Current Medications Albuterol/Ipratropium (Duoneb 3 Mg/0.5 Mg (3 Ml) Ud) 3 ml INH RQ4 PRN PRN Reason: Shortness of Breath Docusate Sodium (Colace) 100 mg PO TID [facility] Famotidine (Pepcid) 20 mg PO BID [facility] Last Admin: 10/30/17 17:42 Dose: 20 mg Heparin Sodium (Porcine) (Heparin) 5,000 units SC Q12 [facility] Last Admin: 10/30/17 21:19 Dose: 5,000 units Ceftriaxone Sodium 1 gm/ (Sodium Chloride) 100 mls @ 100 mls/hr IVPB Q12H [facility] PRN Reason: Protocol Last Admin: 10/31/17 03:44 Dose: 100 mls/hr Vancomycin/Sodium Chloride (Vancomycin 1 Gm/Ns 200 Ml) 1 gm in 200 mls @ 133.333 mls/hr IVPB Q12H [facility] PRN Reason: Protocol Stop: 11/04/17 17:31 Last Admin: 10/31/17 06:05 Dose: 133.333 mls/hr Ketorolac Tromethamine (Toradol) 30 mg IVP Q6 PRN PRN Reason: Pain, severe (8-10) Lactobacillus Acidophilus (Bacid Acidophilus) 1 cap PO BID [facility] Last Admin: 10/30/17 17:42 Dose: 1 cap Losartan Potassium (Cozaar) 50 mg PO DAILY [facility] Last Admin: 10/30/17 11:32 Dose: 50 mg - Labs Labs: 10/31/17 06:56 10/31/17 06:56 - Constitutional Appears: Non-toxic, Chronically Ill - Head Exam Head Exam: NORMOCEPHALIC - Eye Exam Eye Exam: PERRL - ENT Exam ENT Exam: Mucous Membranes Dry - Neck Exam Neck Exam: absent: Lymphadenopathy - Respiratory Exam Respiratory Exam: Decreased Breath Sounds - Cardiovascular Exam Cardiovascular Exam: REGULAR RHYTHM - GI/Abdominal Exam GI & Abdominal Exam: Distended, Soft - Rectal Exam Rectal Exam: Deferred - Exam Exam: NORMAL INSPECTION - Extremities Exam Extremities Exam: absent: Pedal Edema - Back Exam Back Exam: absent: CVA tenderness (L), CVA tenderness (R) - Neurological Exam Neurological Exam: Alert, Awake, Oriented x3 Assessment and Plan (1) Abdominal pain Status: Acute (2) Acute narcotic intoxication Status: Acute (3) Asthma Status: Acute (4) COPD exacerbation Status: Acute (5) Cellulitis of left leg Status: Acute - Assessment and Plan (Free Text) Assessment: cont iv rx for cellulitis vanco level in am
[2017-10-31] MEDS: Lactobacillus Acidophilus 500 MU Cap PO SCH ×2 (10:28→17:08)
[2017-10-31] MEDS ORDERED: Potassium Phosphate 15 MMOLE in Sodium Chloride 0.9% 250 ML IVPB ONE (15:10)
--- NOTE | 2017-10-31 17:39 | CARD ---
APPROVED REPORT Date of service: 10/30/2017 EKG Measurement Heart [id number] <Conclusion> Normal sinus rhythm Counterclockwise rotation Non specific st changes Abnormal ECG
[2017-11-01 04:41] VITALS: PULSE 74
[2017-11-01] MEDS: Vancomycin 1 gm/NS 200 ml 1 GM/200 ML BAG IVPB SCH (04:45)
[2017-11-01 08:21] VITALS: BP 144/73; RESP 18; TEMP 98; O2SAT 99
[2017-11-01 08:28] LABS: BASO % 0.1 % (0.0-2.0); EOS # 0.1 K/uL (0.0-0.7); EOS % 0.6 % (0.0-4.0); HEMOGLOBIN 11.4 g/dL (12.0-18.0); LYMPH % 23.3 % (20.0-40.0); MEAN CORPUSCULAR HEMOGLOBIN 29.6 pg (27.0-31.0); MEAN PLATELET VOLUME 9.5 fL (7.2-11.7); MONO # 0.4 K/uL (0.0-0.8); MONO % 5.2 % (0.0-10.0); NEUT # 6.1 K/uL (1.8-7.0); NEUT % 70.8 % (50.0-75.0); RBC 3.86 Mil/uL (4.40-5.90); RED CELL DISTRIBUTION WIDTH 13.8 % (11.5-14.5); WHITE BLOOD COUNT 8.6 K/uL (4.8-10.8)
[2017-11-01 08:46] LABS: ALB/GLOB RATIO 0.9 (1.0-2.1); ALBUMIN 3.2 g/dL (3.5-5.0); ALT/SGPT 30 U/L (21-72); AST/SGOT 15 U/L (17-59); BLOOD UREA NITROGEN 31 mg/dL (9-20); CALCIUM 8.1 mg/dl (8.6-10.4); GFR AFRICAN-AMERICAN > 60; GFR NON-AFRICAN AMERICAN > 60
--- NOTE | 2017-11-01 09:09 | CP.PCM.PN ---
Subjective - Date & Time of Evaluation Date of Evaluation: 11/01/17 Time of Evaluation: 09:07 - Subjective Subjective: PGY-1 Medicine Progress Note for Dr. Abdalla's service Patient seen and examined at bedside. Patient offers no acute complaints. Patient denies fevers, chills, leg pain, sob, carter, pain with ambulation, cp, n/v , constipation or diarrhea, and urinary symptoms. Patient states his leg is usually swollen and it takes 4-5 days for swelling to decrease. Objective - Vital Signs/Intake and Output Vital Signs (last 24 hours): Temp Pulse Resp BP Pulse Ox 98.0 F 74 18 144/73 99 11/01/17 07:00 11/01/17 07:00 11/01/17 07:00 11/01/17 07:00 11/01/17 07:00 Intake and Output: 11/01/17 11/01/17 06:59 18:59 Intake Total 550 Output Total 900 Balance -350 - Medications Medications: Current Medications Albuterol/Ipratropium (Duoneb 3 Mg/0.5 Mg (3 Ml) Ud) 3 ml INH RQ4 PRN PRN Reason: Shortness of Breath Last Admin: 11/01/17 06:35 Dose: 3 ml Docusate Sodium (Colace) 100 mg PO TID [facility] Last Admin: 10/31/17 17:10 Dose: 100 mg Famotidine (Pepcid) 20 mg PO BID [facility] Last Admin: 10/31/17 17:08 Dose: 20 mg Heparin Sodium (Porcine) (Heparin) 5,000 units SC Q12 [facility] Last Admin: 10/31/17 21:52 Dose: 5,000 units Ceftriaxone Sodium 1 gm/ (Sodium Chloride) 100 mls @ 100 mls/hr IVPB Q12H [facility] PRN Reason: Protocol Last Admin: 11/01/17 03:40 Dose: 100 mls/hr Vancomycin/Sodium Chloride (Vancomycin 1 Gm/Ns 200 Ml) 1 gm in 200 mls @ 133.333 mls/hr IVPB Q12H [facility] PRN Reason: Protocol Stop: 11/04/17 17:31 Last Admin: 11/01/17 04:45 Dose: 133.333 mls/hr Lactobacillus Acidophilus (Bacid Acidophilus) 1 cap PO BID [facility] Last Admin: 08/21/18 17:08 Dose: 1 cap Losartan Potassium (Cozaar) 50 mg PO DAILY [facility] Last Admin: 10/31/17 10:28 Dose: 50 mg - Labs Labs: 11/01/17 08:19 11/01/17 08:19 - Additional Findings Additional findings: - Constitutional Appears: Non-toxic, No Acute Distress - Head Exam Head Exam: NORMAL INSPECTION, NORMOCEPHALIC - Eye Exam Eye Exam: EOMI, Normal appearance. absent: Nystagmus, Scleral icterus - Respiratory Exam Respiratory Exam: Clear to Ausculation Bilateral, NORMAL BREATHING PATTERN. absent: Rales, Rhonchi, Wheezes - Cardiovascular Exam Cardiovascular Exam: REGULAR RHYTHM, +S1, +S2. absent: Tachycardia - GI/Abdominal Exam GI & Abdominal Exam: Soft, Normal Bowel Sounds. absent: Distended, Firm, Guarding, Rigid, Tenderness - Extremities Exam Additional comments: no tenderness to palpation left leg swelling receding from demarcated lines erythematous left leg and warm no oozing, drainage, or pus noted swelling extends from below knee to feet - Back Exam Back Exam: NORMAL INSPECTION. absent: CVA tenderness (L), CVA tenderness (R) - Neurological Exam Neurological Exam: Alert, Awake, Oriented x3 - Psychiatric Exam Psychiatric exam: Normal Affect, Normal Mood - Skin Skin Exam: Intact, Normal Color, Warm Assessment and Plan - Assessment and Plan (Free Text) Assessment: 57M with PMHx of asthma, cirrhosis, Hep C (treated 1 year ago), HTN presents to the hospital for evaluation of LE pain and swelling; diagnosed with cellulitis; blood cultures negative; being treated empirically with vancomycin and ceftriaxone 1 gm @100mls/hr Plan: LE cellulitis Vancomycin/NaCl 1gm in 200mls (Vanc trough 11.6) Ceftriaxone 1gm @100mls/hr IVPB q12h Toradol 30mg IVP q6 PRN Blood Cultures negative D-dimer 636 (likely elevated due to cellulitis infection) LE dopplers negative for DVTs bilaterally Chest CT 10/30: Limited examination for evaluation of PE. No evidence of pe in main and lobar pulmonary arteries. unable to adequately evaluate segmental and subsegmental pulmonary artery branches at this time. No infiltrate. Partial solid 8 mm nodule right middle lobe abutting the minor fissure. Possible intrapulmonary lymph node howerever followup with noncontrast chest CT examination is advised in 3-6 months as per [employer] criteria Gallstones Chest CT 10/30: Cholelithiasis. Possible porcelain gallbladder U/S 10/30: mild hepatomegaly with diffuse fatty infiltration. Cholelithiasis w/o evidence of cholecystitis Discussed elective cholecystecomy with patient Asthma Duoneb 3mg/0.5mg Hypokalemia 2/2 diarrhea Lactobacillus Acidophilus 1 cap PO bid Cirrhosis Hepatitis C treatment with Interferon for 12 months Follows up outpatient for management (next appointment beginning of next month) No ascites, caput medusae, or varicaeal bleeding noted HTN Losartan 50mg PO PPX GI ppx: Pepcid 20mg DVT ppx: Heparin 5,000 units SC q12
[2017-11-01] MEDS: Lactobacillus Acidophilus 500 MU Cap PO SCH (10:45)
--- NOTE | 2017-11-01 11:16 | CP.PCM.DIS ---
<Clay Pisano - Last Filed: 11/01/17 11:17> Provider - Provider Date of Admission: 10/30/17 04:45 Attending physician: Naseem David MD Time Spent in preparation of Discharge (in minutes): 45 Hospital Course - Lab Results Lab Results: Micro Results 10/30/17 10:20 Blood Blood Culture - Preliminary NO GROWTH AFTER 48 HOURS 10/30/17 10:20 Blood Blood Culture - Preliminary NO GROWTH AFTER 48 HOURS Most Recent Lab Values WBC 8.6 K/uL (4.8-10.8) 11/01/17 08:19 RBC 3.86 Mil/uL (4.40-5.90) L 11/01/17 08:19 Hgb 11.4 g/dL (12.0-18.0) L 11/01/17 08:19 Hct 33.6 % (35.0-51.0) L 11/01/17 08:19 MCV 87.0 fL (80.0-94.0) 11/01/17 08:19 MCH 29.6 pg (27.0-31.0) 11/01/17 08:19 MCHC 34.0 g/dL (33.0-37.0) 11/01/17 08:19 RDW 13.8 % (11.5-14.5) 11/01/17 08:19 Plt Count 159 K/uL (130-400) 11/01/17 08:19 MPV 9.5 fL (7.2-11.7) 11/01/17 08:19 Neut % (Auto) 70.8 % (50.0-75.0) 11/01/17 08:19 Lymph % (Auto) 23.3 % (20.0-40.0) 11/01/17 08:19 [place] % (Auto) 5.2 % (0.0-10.0) 11/01/17 08:19 Eos % (Auto) 0.6 % (0.0-4.0) 11/01/17 08:19 Baso % (Auto) 0.1 % (0.0-2.0) 11/01/17 08:19 Neut # (Auto) 6.1 K/uL (1.8-7.0) 11/01/17 08:19 Lymph # (Auto) 2.0 K/uL (1.0-4.3) 11/01/17 08:19 [place] # (Auto) 0.4 K/uL (0.0-0.8) 11/01/17 08:19 Eos # (Auto) 0.1 K/uL (0.0-0.7) 11/01/17 08:19 Baso # (Auto) 0.0 K/uL (0.0-0.2) 11/01/17 08:19 Neutrophils % (Manual) 86 % (50-75) H 10/31/17 06:56 Band Neutrophils % 2 % (0-2) 10/31/17 06:56 Lymphocytes % (Manual) 8 % (20-40) L 10/31/17 06:56 Monocytes % (Manual) 4 % (0-10) 10/31/17 06:56 Platelet Estimate Normal (NORMAL) 10/31/17 06:56 Hypochromasia (manual) Slight 10/31/17 06:56 Poikilocytosis (manual Slight 10/31/17 06:56 Anisocytosis (manual) Slight 10/31/17 06:56 ESR 110 mm/hr (0-15) H 10/30/17 03:08 D-Dimer, Quantitative 636 ng/mlDDU (0-243) H 10/30/17 03:39 Sodium 147 mmol/L (132-148) 11/01/17 08:19 Potassium 3.6 mmol/L (3.6-5.2) 11/01/17 08:19 Chloride 109 mmol/L (98-107) H 11/01/17 08:19 Carbon Dioxide 24 mmol/L (22-30) 11/01/17 08:19 Anion Gap 17 (10-20) 11/01/17 08:19 BUN 31 mg/dL (9-20) H 11/01/17 08:19 Creatinine 1.0 mg/dL (0.8-1.5) 11/01/17 08:19 Est GFR ( Amer) > 60 11/01/17 08:19 Est GFR (Non-Af Amer) > 60 11/01/17 08:19 Random Glucose 105 mg/dL (75-110) 11/01/17 08:19 Calcium 8.1 mg/dl (8.6-10.4) L 11/01/17 08:19 Phosphorus 2.7 mg/dL (2.5-4.5) 11/01/17 08:19 Magnesium 1.9 mg/dL (1.6-2.3) 11/01/17 08:19 Total Bilirubin 0.3 mg/dL (0.2-1.3) 11/01/17 08:19 AST 15 U/L (17-59) L D 11/01/17 08:19 ALT 30 U/L (21-72) 11/01/17 08:19 Alkaline Phosphatase 74 U/L (38-126) 11/01/17 08:19 C-React Prot High Sens > 15.00 mg/L (1.00-3.00) H 10/30/17 03:08 Total Protein 6.9 g/dL (6.3-8.3) 11/01/17 08:19 Albumin 3.2 g/dL (3.5-5.0) L 11/01/17 08:19 Globulin 3.7 gm/dL (2.2-3.9) 11/01/17 08:19 Albumin/Globulin Ratio 0.9 (1.0-2.1) L 11/01/17 08:19 Triglycerides Cancelled 10/30/17 03:23 Cholesterol Cancelled 10/30/17 03:23 LDL Cholesterol Direct Cancelled 10/30/17 03:23 HDL Cholesterol Cancelled 10/30/17 03:23 Amylase 47 U/L (30-110) 10/30/17 02:02 Lipase 30 U/L (23-300) 10/30/17 03:23 Vancomycin Trough 11.6 ug/mL (5.0-10.0) H 10/31/17 16:45 - Hospital Course Hospital Course: All: NKDA PMHx: asthma, cirrhosis, Hep C (treated 1 year ago), HTN, cellulitis Psurg: biopsy of left leg (benign) Social: used to smoke 1 ppd, now smoking 4 cigarettes per day - 30 pack years, 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 Patient says he has lower extremity cellulitis on and and off for many years, however today his leg became very swollen and painful. Patient also complains of dull midsternal chest pain which he rates 7/10. He has central abdominal pain which he explains is sharp and rates it 7/10. Patient admits to 6 episodes of nonbloody diarrhea today. Patient also had one episode of vomiting up green today. Patient also admits to shortness of breath. Patient normally uses his inhaler twice a day, but says he just ran out. Hospital Course: 57M with PMHx of asthma, cirrhosis, Hep C (treated 1 year ago), HTN presents to the hospital for evaluation of LE pain and swelling; diagnosed with cellulitis; blood cultures negative; being treated empirically with vancomycin and ceftriaxone; Patient pain improved with no white count, fevers, or chills; will be discharged with Augmentin for 7 days Discharge Plan: Patient is stable for discharge to home as per Dr. Abdalla. Patient is to follow up with primary medical doctor within 1 week of discharge from hospital. Patient to resume all of his home medications as no home medications were adjusted during hospital stay. Patient is to take Augmentin antibiotic by mouth once daily for the next 7 days to end on (11/08). Patient should return to hospital if symptoms worsen or recur. Patient understands the plan above and agrees. Disclaimer: Written above is a synopsis of patient current hospital admission. For full report refer to EMR. Discharge Exam - Additional Findings Additional findings: - Constitutional Appears: Non-toxic, No Acute Distress - Head Exam Head Exam: NORMAL INSPECTION, NORMOCEPHALIC - Eye Exam Eye Exam: EOMI, Normal appearance. absent: Nystagmus, Scleral icterus - Respiratory Exam Respiratory Exam: Clear to Ausculation Bilateral, NORMAL BREATHING PATTERN. absent: Rales, Rhonchi, Wheezes - Cardiovascular Exam Cardiovascular Exam: REGULAR RHYTHM, +S1, +S2. absent: Tachycardia - GI/Abdominal Exam GI & Abdominal Exam: Soft, Normal Bowel Sounds. absent: Distended, Firm, Guarding, Rigid, Tenderness - Extremities Exam Additional comments: no tenderness to palpation left leg swelling receding from demarcated lines erythematous left leg and warm no oozing, drainage, or pus noted swelling extends from below knee to feet - Back Exam Back Exam: NORMAL INSPECTION. absent: CVA tenderness (L), CVA tenderness (R) - Neurological Exam Neurological Exam: Alert, Awake, Oriented x3 - Psychiatric Exam Psychiatric exam: Normal Affect, Normal Mood - Skin Skin Exam: Intact, Normal Color, Warm Discharge Plan - Discharge Medications Prescriptions: Albuterol HFA [Ventolin HFA 90 mcg/actuation (8 g)] 2 puff IH [id number] #30 puff Albuterol/Ipratropium [Duoneb 3 mg/0.5 mg (3 ml) UD] 3 ml IH QID PRN #50 neb PRN Reason: Wheezing Amoxicillin/Clavulanate [Augmentin 875 MG-125 MG] 1 tab PO DAILY 7 Days tab - Follow Up Plan Condition: GUARDED Disposition: HOME/ ROUTINE Instructions: Heart Healthy Diet, Asthma, Adult (DC), Amoxicillin and Clavulanate, Ipratropium and Albuterol, Cellulitis (DC), Cellulitis (GEN) Additional Instructions: Patient is stable for discharge to home as per Dr. Abdalla. Patient is to follow up with primary medical doctor within 1 week of discharge from hospital. Patient to resume all of his home medications as no home medications were adjusted during hospital stay. Patient is to take Augmentin antibiotic by mouth once daily for the next 7 days to end on (11/08). Patient should return to hospital if symptoms worsen or recur. Patient understands the plan above and agrees. <Rashid Abdalla - Last Filed: 11/01/17 14:05> Provider - Provider Date of Admission: 10/30/17 04:45 Attending physician: Naseem David MD Hospital Course - Lab Results Lab Results: Micro Results 10/30/17 10:20 Blood Blood Culture - Preliminary NO GROWTH AFTER 48 HOURS 10/30/17 10:20 Blood Blood Culture - Preliminary NO GROWTH AFTER 48 HOURS Most Recent Lab Values WBC 8.6 K/uL (4.8-10.8) 11/01/17 08:19 RBC 3.86 Mil/uL (4.40-5.90) L 11/01/17 08:19 Hgb 11.4 g/dL (12.0-18.0) L 11/01/17 08:19 Hct 33.6 % (35.0-51.0) L 11/01/17 08:19 MCV 87.0 fL (80.0-94.0) 11/01/17 08:19 MCH 29.6 pg (27.0-31.0) 11/01/17 08:19 MCHC 34.0 g/dL (33.0-37.0) 11/01/17 08:19 RDW 13.8 % (11.5-14.5) 11/01/17 08:19 Plt Count 159 K/uL (130-400) 11/01/17 08:19 MPV 9.5 fL (7.2-11.7) 11/01/17 08:19 Neut % (Auto) 70.8 % (50.0-75.0) 11/01/17 08:19 Lymph % (Auto) 23.3 % (20.0-40.0) 11/01/17 08:19 [place] % (Auto) 5.2 % (0.0-10.0) 11/01/17 08:19 Eos % (Auto) 0.6 % (0.0-4.0) 11/01/17 08:19 Baso % (Auto) 0.1 % (0.0-2.0) 11/01/17 08:19 Neut # (Auto) 6.1 K/uL (1.8-7.0) 11/01/17 08:19 Lymph # (Auto) 2.0 K/uL (1.0-4.3) 11/01/17 08:19 [place] # (Auto) 0.4 K/uL (0.0-0.8) 11/01/17 08: Eos # (Auto) 0.1 K/uL (0.0-0.7) 11/01/17 08: Baso # (Auto) 0.0 K/uL (0.0-0.2) 11/01/17 08:19 Neutrophils % (Manual) 86 % (50-75) H 10/31/17 06:56 Band Neutrophils % 2 % (0-2) 10/31/17 06:56 Lymphocytes % (Manual) 8 % (20-40) L 10/31/17 06:56 Monocytes % (Manual) 4 % (0-10) 10/31/17 06:56 Platelet Estimate Normal (NORMAL) 10/31/17 06:56 Hypochromasia (manual) Slight 10/31/17 06:56 Poikilocytosis (manual Slight 10/31/17 06:56 Anisocytosis (manual) Slight 10/31/17 06:56 ESR 110 mm/hr (0-15) H 10/30/17 03:08 D-Dimer, Quantitative 636 ng/mlDDU (0-243) H 10/30/17 03:39 Sodium 147 mmol/L (132-148) 11/01/17 08:19 Potassium 3.6 mmol/L (3.6-5.2) 11/01/17 08:19 Chloride 109 mmol/L (98-107) H 11/01/17 08:19 Carbon Dioxide 24 mmol/L (22-30) 11/01/17 08:19 Anion Gap 17 (10-20) 11/01/17 08:19 BUN 31 mg/dL (9-20) H 11/01/17 08:19 Creatinine 1.0 mg/dL (0.8-1.5) 11/01/17 08:19 Est GFR ( Amer) > 60 11/01/17 08:19 Est GFR (Non-Af Amer) > 60 11/01/17 08:19 Random Glucose 105 mg/dL (75-110) 11/01/17 08:19 Calcium 8.1 mg/dl (8.6-10.4) L 11/01/17 08:19 Phosphorus 2.7 mg/dL (2.5-4.5) 11/01/17 08:19 Magnesium 1.9 mg/dL (1.6-2.3) 11/01/17 08:19 Total Bilirubin 0.3 mg/dL (0.2-1.3) 11/01/17 08:19 AST 15 U/L (17-59) L D 11/01/17 08:19 ALT 30 U/L (21-72) 11/01/17 08:19 Alkaline Phosphatase 74 U/L (38-126) 11/01/17 08:19 C-React Prot High Sens > 15.00 mg/L (1.00-3.00) H 10/30/17 03:08 Total Protein 6.9 g/dL (6.3-8.3) 11/01/17 08:19 Albumin 3.2 g/dL (3.5-5.0) L 11/01/17 08:19 Globulin 3.7 gm/dL (2.2-3.9) 11/01/17 08:19 Albumin/Globulin Ratio 0.9 (1.0-2.1) L 11/01/17 08:19 Triglycerides Cancelled 10/30/17 03:23 Cholesterol Cancelled 10/30/17 03:23 LDL Cholesterol Direct Cancelled 10/30/17 03:23 HDL Cholesterol Cancelled 10/30/17 03:23 Amylase 47 U/L (30-110) 10/30/17 02:02 Lipase 30 U/L (23-300) 10/30/17 03:23 Vancomycin Trough 11.6 ug/mL (5.0-10.0) H 10/31/17 16:45 Attending/Attestation - Attestation I have personally seen and examined this patient.: Yes I have fully participated in the care of the patient.: Yes I have reviewed all pertinent clinical information, including history, physical exam and plan: Yes Notes (Text): 11/01/17 14:04 Medical attending: Patient was seen and examined by me, reviewed the above note by the bilingual medical receptionist, and agree with the above note. The patient looked very well today. The left lower extremity erythema had decreased substantially. This was compared to the area that had been outlined for marker when he was admitted to the hospital. He denied having any pain with palpation of the anterior or posterior lower extremity of his left leg. He was also actively walking around without difficulty. His white blood cell count stable, the patient does not have fevers. Were to continue with the antibiotics to be given orally. Thank you very much, Rashid Abdalla
== END 2017-11-01 12:45 | disposition home or self-care (01) | DRG 277 ==
LOC: C.ER 01:10 → C.6T 04:45
PROVIDERS: ADMIT Family Medicine; ATTEND Family Medicine
DX: L03.116 Cellulitis of left lower limb (principal); E87.6 Hypokalemia; K70.30 Alcoholic cirrhosis of liver without ascites; J44.1 Chronic obstructive pulmonary disease with (acute) exacerbation; I10 Essential (primary) hypertension; R79.1 Abnormal coagulation profile; K80.20 Calculus of gallbladder without cholecystitis without obstruction; E66.9 Obesity, unspecified; F10.11 Alcohol abuse, in remission; F17.210 Nicotine dependence, cigarettes, uncomplicated; Z87.01 Personal history of pneumonia (recurrent)

== ENCOUNTER 2017-11-22 09:26 | Day surgery (SDC) | payer MEDICAID ==
[2017-11-09 10:41] VITALS: BMI 40.7
[2017-11-22] MEDS ORDERED: Bupivacaine 0.25% 20 ML INJ IJ ONE (11:17)
[2017-11-22] MEDS ORDERED: Lidocaine/Epinephrine 1% 1:100000 10 ML IJ ONE (11:18)
[2017-11-22] MEDS ORDERED: ceFAZolin IV 1 gm in Dextrose 2 GM/100 ML BAG IVPB ONE (11:35)
[2017-11-22] MEDS ORDERED: Midazolam 2 MG/2 ML VIAL ONE (11:40)
[2017-11-22] MEDS ORDERED: Propofol 10 mg/ml Inj (20 ML) ONE (11:40)
[2017-11-22] MEDS ORDERED: Rocuronium 10 mg/ml (5 ml) ONE ×2 (11:40→12:56)
[2017-11-22] MEDS ORDERED: Neostigmine Methylsulfate 3mg/3ml Syringe IV ONE ×2 (13:17→13:43)
[2017-11-22] MEDS: HYDROmorphone 0.5 mg/0.5 ml ISec IVP PRN ×3 (14:08→14:28)
[2017-11-22] MEDS ORDERED: Oxycodone/Acetaminophen 5/325 mg Tab PO PRN (15:39)
--- NOTE | 2017-11-22 15:44 | PCM.SURG1 ---
Surgeon's Initial Post Op Note - Surgeon's Notes Surgeon: Pipe Contreras MD Microsystems Engineer: GUICHO Dykes Type of Anesthesia: General Endo Pre-Operative Diagnosis: Cholelithiasis Operative Findings: See op report Post-Operative Diagnosis: Cholelithiasis Operation Performed: Robotic cholecystectomy Specimen/Specimens Removed: Gallbladder Estimated Blood Loss: EBL {In ML}: 50 Blood Products Given: N/A Drains Used: No Drains Post-Op Condition: Good Date of Surgery/Procedure: 11/22/17 Time of Surgery/Procedure: 13:50
[2017-11-22 16:43] VITALS: BP 115/53; PULSE 77; RESP 18; TEMP 97; O2SAT 100
--- NOTE | 2017-11-26 23:54 | OP ---
PROCEDURE DATE: 11/22/2017 PREOPERATIVE DIAGNOSES: 1. Chronic cholecystitis and cholelithiasis. 2. Morbid obesity. POSTOPERATIVE DIAGNOSES: 1. Acute on chronic cholecystitis and cholelithiasis. 2. Extensive postinfectious and postoperative adhesion and distended gallbladder. 3. Morbid obesity. PROCEDURES DONE: 1. Robotic cholecystectomy. 2. Robotic extensive lysis of adhesion and enterolysis. 3. Robotic aspiration of the gallbladder. SURGEON: The procedure was done by me Pipe Contreras MD. DATA WAREHOUSE MANAGER: YULISSA Aguiar. TYPE OF ANESTHESIA: General endotracheal tube anesthesia. ESTIMATED BLOOD LOSS: Around 50 mL. DRAINS: A 19-Spanish Jose drain was placed. COMPLICATIONS: None. INTRAOPERATIVE FINDINGS: The patient had acute on chronic phlegmonous cholecystitis with extensive omental colonic duodenal adhesion in the right upper quadrant and extensive lysis of adhesion was done. Due to the extremely distended, thick and edematous gallbladder, and extremely large gallbladder, the gallbladder was aspirated, and the procedure was completed. DESCRIPTION OF PROCEDURE: On intraoperative steps, this is a 57-year-old male who was diagnosed with chronic cholecystitis and cholelithiasis, and the patient was consented for the robotic cholecystectomy possible open, and the patient was brought to the OR, placed supine on the operating table. After induction of the anesthesia, the abdomen was prepped and draped in usual sterile fashion. A supraumbilical transverse incision was made after incising the skin, subcutaneous tissue, and the fascia. The robotic camera was placed. Pneumo was created. Another 3/8 mm port was placed in upper abdomen. Robot was brought in. Camera arm as well as arm 1 and arm 2 were docked. The patient found to have phlegmon of the gallbladder, omentum, as well as colon and duodenum attached to the right upper quadrant, and first, extensive lysis of adhesion was done to identify the gallbladder; and gallbladder appeared to be extremely enlarged, thick, and edematous, and aspiration of the gallbladder was done in order to facilitate the procedure. The gallbladder was retracted cranially. Calot's angle dissection was done. Intraoperative Firefly was used to identify the ductal anatomy. The critical view of the safety was identified. The top down approach was done. Cystic duct and cystic artery was identified and clipped at same places and cut in between 2 clips nearby gallbladder, and gallbladder was dissected free from the gallbladder fossa, taken in EndoCatch bag, taken out through the umbilical port site and sent off the table for the pathology. Due to extensive adhesion and bile spillage, the suction and irrigation of the gallbladder fossa as well as right hepatic area was done, and 19-Spanish Jose drain was placed, and the drain was secured through the skin. All the instruments were taken out. Robot was undocked. All the port was taken out under vision. Pneumo was deflated. Umbilical port site was closed in 2 layers. The fascia with 0 Vicryl interrupted suture, skin with 4-0 Monocryl, and dry sterile dressing was applied. The patient tolerated the procedure well. Counts of instrument and gauze were correct. There were no apparent complications. The patient was extubated to OR and sent to the Postanesthesia Care Unit in stable condition. Pipe Contreras MD
== END 2017-11-22 16:46 | disposition home or self-care (01) ==
LOC: C.SDS 09:26
PROVIDERS: ATTEND Surgery Surgical Critical Care
DX: K80.10 Calculus of gallbladder with chronic cholecystitis without obstruction (principal); E66.01 Morbid (severe) obesity due to excess calories
CPT/HCPCS: 47562; 88304; J0690; J1170; J1885; J2250; J2405; J2704; J2710; J3010; J7030

== ENCOUNTER 2017-12-20 02:01 | Emergency (ER) | payer MEDICAID ==
[2017-12-20 02:01] VITALS: BMI 40.7
[2017-12-20 02:18] VITALS: O2SAT 95
--- NOTE | 2017-12-20 02:57 | C.PDOC ---
History Of Present Illness 57 yo male w/PMHx of COPD, hep C, chr. left lower leg lymphedema, come in for evaluation of left lower leg pain worse for past week. Pt admits, " have flairs of pain in my left leg time after time". Pt sts, takes Ibuprofen at home without improvement in pain. Otherwise, pt denies recent known trauma or injury, fever, chills, CP, SOB, dyspnea, palpitation, denies weakness, skin changes, sensory or vascular deficits to left leg. Ambulate to ED for evaluation with baseline gait, not n nay apparent distress FYI: Previous ED records review, Last seen in [place] on 11/13/17 due to CP. Blood work, CT chest and VQ cant performed with low probability for PE. Doppler US of B/L LEs (-) DVT to B/L lEs.Pt was discharged on 11/15/17 with Rx: Percocet #20. Time Seen by Provider: 12/20/17 02:05 Chief Complaint (Nursing): Lower Extremity Problem/Injury History Per: Patient Onset/Duration Of Symptoms: Gradual Past Medical History Reviewed: Historical Data, Nursing Documentation, Vital Signs Vital Signs: Last Vital Signs Temp 99.2 F 12/20/17 02:11 Pulse 88 12/20/17 02:11 Resp BP 144/82 12/20/17 02:11 Pulse Ox 95 12/20/17 02:11 - Medical History PMH: Asthma, COPD, Gall Bladder Disease (GALLSTONES), Hepatitis (C), HTN, Peripheral Edema (LEFT LEG), Pneumonia Denies: Chronic Kidney Disease - [facility] Procedures DX ULTRASOUND-HEART (07/13/12) Family History: States: Unknown Family Hx, [place] (Father at 49 y/o), Diabetes (Mother at 71 y/o) - Social History Hx Tobacco Use: Yes (5 cigarettes per day for 30 years) Hx Alcohol Use: No Hx Substance Use: No - Immunization History Hx Tetanus Toxoid Vaccination: Yes Hx Influenza Vaccination: Yes Hx Pneumococcal Vaccination: Yes Review Of Systems Except As Marked, All Systems Reviewed And Found Negative. Constitutional: Negative for: Fever, Chills Eyes: Negative for: Vision Change ENT: Negative for: Ear Discharge, Nose Discharge, Throat Pain Cardiovascular: Negative for: Chest Pain, Palpitations Respiratory: Negative for: Cough, Shortness of Breath, Wheezing Gastrointestinal: Negative for: Nausea, Vomiting, Abdominal Pain, Diarrhea Genitourinary: Negative for: Dysuria, Frequency, Incontinence Musculoskeletal: Positive for: Leg Pain. Negative for: Neck Pain, Back Pain Neurological: Negative for: Weakness, Numbness, Altered Mental Status, Headache, Dizziness Physical Exam - Physical Exam Appears: Well, Non-toxic, No Acute Distress Skin: Normal Color, Warm, Dry, No Rash Head: Normacephalic Eye(s): bilateral: PERRL Nose: No Flaring Oral Mucosa: Moist Throat: No Erythema, No Drooling Neck: Supple Cardiovascular: Rhythm Regular, No Murmur, No JVD, Other ((-) carotid bruits B/L) Respiratory: No Decreased Breath Sounds, No Accessory Muscle Use, No Stridor, No Wheezing Gastrointestinal/Abdominal: Soft, No Tenderness, No Distention, No Guarding Extremity: Normal ROM (LLE), Tenderness (diffuse left lower leg with mild diffuse edema c/w lymphedema. Mild skin changes due to chronic venous stasis. No cellulitis, no open wounds.), Capillary Refill (less than 2sec to left foot), No Deformity Neurological/Psych: Oriented x3, Normal Speech, Normal Motor, Normal Sensation, Normal Reflexes ED Course And Treatment O2 Sat by Pulse Oximetry: 95 Pulse Ox Interpretation: Normal Progress Note: On re-eval, pt is afebrile, hemodynamicaly stable. Non-toxic. Ambulatory in ED with stable gait. PulsEOx 95% RA. Neck: Supple. Lungs: CTA BB/L, BS equal B/L. Abd: benign. LLE: exam c/w chr. lymphedema, no evidence of cellulitis, no pitting edema. FAROM, no neurovascular deficits. Neurologicaly intact. case discussed with ED attending , previous ED records review from 1 month ago when pt had extensive work up due to same complaints, appears benign. No further testing recommned, discdgharge with outpt fu recommend. Clinical findings discussed with pt, who request " pain medictaion now ". Pt advised and ref. to f/u with PMD, neurologist in 2-3 days for re-eavl. return to ED if any worsening or new changes. Disposition Counseled Patient/Family Regarding: Diagnosis, Need For Followup, Rx Given - Disposition Referrals: Mare Holden MD [Medical Doctor] - Disposition: HOME/ ROUTINE Disposition Time: 03:55 Condition: STABLE Additional Instructions: Follow up with PMD in 1-2 days for re-evaluation. return to ED if any worsening or new changes. Prescriptions: traMADol [Ultram] 50 mg PO TID #7 tab Instructions: Lymphedema Forms: [facility] (Hebrew) - Clinical Impression Clinical Impression: Leg edema
[2017-12-20] MEDS ORDERED: Oxycodone/Acetaminophen 5/325 mg Tab PO STA (03:20)
[2017-12-20] MEDS ORDERED: Oxycodone/Acetaminophen 5/325 mg Tab ONE (04:02)
[2017-12-20 04:15] VITALS: BP 145/82; PULSE 73; RESP 14; TEMP 98.1
== END 2017-12-20 04:15 | disposition home or self-care (01) ==
LOC: C.ER 02:01
DX: R60.0 Localized edema (principal)

== ENCOUNTER 2017-12-25 12:41 | Emergency (ER) | payer MEDICAID ==
[2017-12-25 12:41] VITALS: BMI 40.7
[2017-12-25] MEDS ORDERED: Lidocaine 1% Inj (20ml) INFIL STA (14:23)
[2017-12-25] MEDS ORDERED: Tmp-Smz 800 mg-160 mg DS Tab PO STA (14:24)
[2017-12-25] MEDS ORDERED: Lidocaine 1% PF (5ml) Amp INJ ONE (14:45)
[2017-12-25] MEDS ORDERED: Tmp-Smz 800 mg-160 mg DS Tab ONE (14:46)
--- NOTE | 2017-12-25 15:08 | C.PDOC ---
"History Of Present Illness 57 year old male presents to the ED for evaluation of a painful abscess to the dorsum of his left hand. Patient has history of IV-drug abuse and admits to injecting heroin to the back of his left hand. Patient was recently evaluated for inpatient cholecystectomy done robotically by Dr. Contreras. Patient has not had any further abdominal discomfort since then. Patient admits to using heroin today. He denies fever, chills, suicidal/homicidal ideation. Time Seen by Provider: 12/25/17 14:14 Chief Complaint (Nursing): Abnormal Skin Integrity History Per: Patient History/Exam Limitations: no limitations Onset/Duration Of Symptoms: Hrs Current Symptoms Are (Timing): Still Present Location Of Injury: Left: Hand Additional History Per: Patient Past Medical History Reviewed: Historical Data, Nursing Documentation, Vital Signs Vital Signs: Last Vital Signs Temp 99.1 F 12/25/17 13:16 Pulse 76 12/25/17 13:16 Resp 18 12/25/17 13:16 BP 146/82 12/25/17 13:16 Pulse Ox 94 L 12/25/17 13:16 - Medical History PMH: Asthma, COPD, Gall Bladder Disease (GALLSTONES), Hepatitis (C), HTN, Peripheral Edema (LEFT LEG), Pneumonia Denies: Chronic Kidney Disease Surgical History: No Surg Hx - [facility] Procedures DX ULTRASOUND-HEART (07/13/12) Family History: States: Unknown Family Hx, [place] (Father at 49 y/o), Diabetes (Mother at 71 y/o) - Social History Hx Tobacco Use: Yes (5 cigarettes per day for 30 years) Hx Alcohol Use: No Hx Substance Use: Yes (heroin) - Immunization History Hx Tetanus Toxoid Vaccination: Yes Hx Influenza Vaccination: Yes Hx Pneumococcal Vaccination: Yes Review Of Systems Constitutional: Negative for: Fever, Chills Musculoskeletal: Positive for: Hand Pain (left) Skin: Positive for: Other (abscess to left hand ) Physical Exam - Physical Exam Appears: Non-toxic, No Acute Distress Skin: Normal Color, Warm, Dry, Other (5cm diameter area of erythema and fluctuance to dorsum of left hand. healed port scars ) Head: Atraumatic, Normacephalic Eye(s): bilateral: Normal Inspection Oral Mucosa: Moist Neck: Supple Chest: Symmetrical, No Deformity, No Tenderness Cardiovascular: Rhythm Regular, No Murmur Respiratory: Normal Breath Sounds, No Rales, No Rhonchi, No Wheezing Extremity: Normal ROM, Capillary Refill (less than 2 seconds ) Pulses: Left Radial: Normal, Right Radial: Normal Neurological/Psych: Oriented x3, Normal Speech, Normal Cognition ED Course And Treatment O2 Sat by Pulse Oximetry: 94 - Incision & Drainage Of Abscess Anesthesia: Lidocaine 1% (13ml) Procedure: Incised W/Scalpel Blade#:, Drained Pus (5-10ml), Irrigated Cavity W/Saline, Probed To Break Up Loculations, Packed W/Gauze, Cultures Obtained And Sent To Lab Medical Decision Making Medical Decision Making: SQ abscess, related to IVDA L hand now s/p I&D Bactrim for high risk MRSA Disposition Doctor Will See Patient In The: Office Counseled Patient/Family Regarding: Studies Performed, Diagnosis - Disposition Referrals: [facility] [Outside] [facility] [Outside] [facility] [Outside] Disposition: HOME/ ROUTINE Disposition Time: 15:08 Condition: GOOD Additional Instructions: Bactrim DS antibiotic 2x/day for 7 days motrin for pain every 6 hours return in 2 day for wound check and to pull the packing. Prescriptions: Sulfamethoxazole/Trimethoprim [Bactrim DS 800 mg-160 mg] 1 tab PO BID #13 tab Instructions: Abscess Incision and Drainage Forms: [employer] - innovate | mentor | invest (Czech) - Clinical Impression Clinical Impression: Abscess of hand, left - Scribe Statement The provider has reviewed the documentation as recorded by the Scribe (Savanna Serra) Provider Attestation: All medical record entries made by the Scribe were at my direction and personally dictated by me. I have reviewed the chart and agree that the record accurately reflects my personal performance of the history, physical exam, medical decision making, and the department course for this patient. I have also personally directed, reviewed, and agree with the discharge instructions and disposition."
[2017-12-25] MEDS ORDERED: Bacitracin 500 Units/gm Oint Foilpak UD ONE (15:15)
[2017-12-25 15:56] VITALS: BP 142/80; PULSE 74; RESP 20; TEMP 98.7
[2017-12-25 18:48] VITALS: O2SAT 94
== END 2017-12-25 15:57 | disposition home or self-care (01) ==
LOC: C.ER 12:41
DX: L02.512 Cutaneous abscess of left hand (principal); I10 Essential (primary) hypertension; J44.9 Chronic obstructive pulmonary disease, unspecified; F17.210 Nicotine dependence, cigarettes, uncomplicated

== ENCOUNTER 2017-12-27 09:28 | Emergency (ER) | payer MEDICAID ==
[2017-12-27 09:28] VITALS: BMI 40.7
[2017-12-27 09:59] VITALS: BP 123/73; PULSE 78; RESP 18; TEMP 98.5; O2SAT 95
--- NOTE | 2017-12-27 10:12 | C.PDOC ---
History Of Present Illness 57 y/o male presents to ED for wound check s/p I&D on 12/25/17. Patient states packing came out but wound noted to be better than initially. Patient has been compliant with antibiotics and denies drainage, fever, chills or any other complaints at this time. Time Seen by Provider: 12/27/17 10:08 Chief Complaint (Nursing): Wound Check History Per: Patient History/Exam Limitations: no limitations Onset/Duration Of Symptoms: Days Ago Current Symptoms Are (Timing): Still Present Past Medical History Reviewed: Historical Data, Nursing Documentation, Vital Signs Vital Signs: Last Vital Signs Temp 98.5 F 12/27/17 09:57 Pulse 78 12/27/17 09:57 Resp 18 12/27/17 09:57 BP 123/73 12/27/17 09:57 Pulse Ox 95 12/27/17 09:57 - Medical History PMH: Asthma, COPD, Gall Bladder Disease (GALLSTONES), Hepatitis (C), HTN, Peripheral Edema (LEFT LEG), Pneumonia Surgical History: No Surg Hx - [facility] Procedures DX ULTRASOUND-HEART (07/13/12) Family History: States: Unknown Family Hx, [place] (Father at 49 y/o), Diabetes (Mother at 71 y/o) - Social History Hx Tobacco Use: Yes (5 cigarettes per day for 30 years) Hx Alcohol Use: No Hx Substance Use: Yes (heroin) - Immunization History Hx Tetanus Toxoid Vaccination: No Hx Influenza Vaccination: Yes Hx Pneumococcal Vaccination: Yes Review Of Systems Constitutional: Negative for: Fever, Chills Gastrointestinal: Negative for: Nausea, Vomiting Skin: Positive for: Other (wound to left hand). Negative for: Rash Physical Exam - Physical Exam Appears: Non-toxic, No Acute Distress Skin: Warm, Dry, No Rash, No Ecchymosis, Other (healing I&D wound to dorsal aspect of left hand with minimal localized erythema. No discharge or flunctuance noted) Head: Atraumatic, Normacephalic Eye(s): bilateral: Normal Inspection Oral Mucosa: Moist Cardiovascular: Rhythm Regular Respiratory: Normal Breath Sounds, No Rales, No Rhonchi, No Wheezing Extremity: Normal ROM, Capillary Refill (<2 seconds), No Deformity Pulses: Left Radial: Normal Neurological/Psych: Oriented x3, Normal Motor, Normal Sensation ED Course And Treatment O2 Sat by Pulse Oximetry: 95 (RA) Pulse Ox Interpretation: Normal Disposition Counseled Patient/Family Regarding: Diagnosis, Need For Followup - Disposition Referrals: YOUR,PMD [Other] Disposition: HOME/ ROUTINE Disposition Time: 10:12 Condition: GOOD Instructions: Wound Care (DC) Forms: [email or web address] (Croatian) - Clinical Impression Clinical Impression: Wound check, abscess - Scribe Statement The provider has reviewed the documentation as recorded by the Bentonibjose alejandro Sparks All medical record entries made by the Bentonibjose alejandro were at my direction and perso myke dictated by me. I have reviewed the chart and agree that the record accurately reflects my personal performance of the history, physical exam, medical decision making, and the department course for this patient. I have also personally directed, reviewed, and agree with the discharge instructions and disposition.
== END 2017-12-27 10:21 | disposition home or self-care (01) ==
LOC: C.ER 09:28
DX: Z48.00 Encounter for change or removal of nonsurgical wound dressing (principal); L02.512 Cutaneous abscess of left hand

== ENCOUNTER 2018-04-03 10:30 | Inpatient (IN) | payer MEDICAID ==
[2018-04-03 10:30] VITALS: BMI 40.7
--- NOTE | 2018-04-03 11:15 | C.PDOC ---
History Of Present Illness 58 y/o male presents to the ER complaining of chest pain which began today. Patient states that he also has left leg swelling and erythema. Patient denies having fever, chills, SOB, nausea, and vomiting. Time Seen by Provider: 04/03/18 10:56 Chief Complaint (Nursing): Chest Pain History Per: Patient History/Exam Limitations: no limitations Onset/Duration Of Symptoms: Days Current Symptoms Are (Timing): Still Present Severity: Moderate Past Medical History Reviewed: Historical Data, Nursing Documentation, Vital Signs Vital Signs: Last Vital Signs Temp 98.6 F 04/03/18 10:41 Pulse 96 H 04/03/18 10:45 Resp 20 04/03/18 10:41 BP 92/45 L 04/03/18 10:45 Pulse Ox 94 L 04/03/18 10:41 - Medical History PMH: Asthma, COPD, Gall Bladder Disease (GALLSTONES), Hepatitis (C), HTN, Peripheral Edema (LEFT LEG), Pneumonia Denies: Chronic Kidney Disease Other Surgeries: Hx of surgeries - [facility] Procedures DX ULTRASOUND-HEART (07/13/12) Family History: States: [place] (Father at 49 y/o), Diabetes (Mother at 71 y/o) - Social History Hx Tobacco Use: Yes (5 cigarettes per day for 30 years) Hx Alcohol Use: No Hx Substance Use: Yes (heroin) - Immunization History Hx Tetanus Toxoid Vaccination: No Hx Influenza Vaccination: Yes Hx Pneumococcal Vaccination: Yes Review Of Systems Except As Marked, All Systems Reviewed And Found Negative. Constitutional: Negative for: Fever, Chills Cardiovascular: Positive for: Chest Pain Respiratory: Negative for: Shortness of Breath Gastrointestinal: Negative for: Nausea, Vomiting Musculoskeletal: Positive for: Other (left leg swelling) Physical Exam - Physical Exam Appears: Non-toxic, No Acute Distress Skin: Normal Color, Warm, Dry, Other (erythema to left leg) Head: Atraumatic, Normacephalic Nose: Normal Oral Mucosa: Moist Neck: Supple Chest: Symmetrical Cardiovascular: Rhythm Regular Respiratory: No Rales, Rhonchi (scattered rhonchi), No Wheezing Gastrointestinal/Abdominal: Soft, No Tenderness, No Guarding, No Rebound Extremity: Normal ROM, No Tenderness, No Swelling, Other (left leg warm to touch) Neurological/Psych: Oriented x3, Normal Speech ED Course And Treatment - Laboratory Results Result Diagrams: 04/06/18 08:29 04/06/18 08:29 ECG: Interpreted By Me, Viewed By Me ECG Rhythm: Sinus Tachycardia Interpretation Of ECG: Sinus Tachycardia with no ST/ T wave changes Rate From EC O2 Sat by Pulse Oximetry: 94 (RA) Pulse Ox Interpretation: Normal - Other Rad CXR X-Ray: Viewed By Me, Read By Radiologist Interpretation: Date of service: 04/03/2018. HISTORY: Chest pain. COM PARISON: Comparison made with prior chest radiograph 10/30/2017. FINDINGS: LUNGS: Poor inspiration with low lung volumes, crowded bronchovascular markings and mild bibasilar atelectasis. PLEURA: No significant pleural effusion identified, no pneumothorax apparent. CARDIOVASCULAR: No obvious aortic atherosclerotic calcification present.. Heart size is borderline/mildly enlarged. No pulmonary vascular congestion. OSSEOUS STRUCTURES: No significant abnormalities. VISUALIZED UPPER ABDOMEN: Normal. OTHER FINDINGS: None. IMPRESSION: Poor inspiration with low lung volumes, crowded b ronchovascular markings and mild bibasilar atelectasis. - CT Scan/US CT-Chest Other Rad Studies (CT/US): Read By Radiologist, Radiology Report Reviewed CT/US Interpretation: Date of service: 04/03/2018. CTA chest PE protocol. Indication: sob elevated dimer. Technique: Contiguous axial images were obtained through the chest with intravenous contrast enhancement. Sagittal and coronal reconstructions were generated and reviewed. This CT exam was performed using 1 or more of the following dose reduction techniques: Automated exposure control, adjustment of the MAA and/or kV according to patient size, and/or use of iterative reconstruction technique. IV contrast: 100 mL Visipaque 320 IV. . Radiation dose (DLP): 624.68 MGy-cm. Comparison: Chest x-ray performed 04/03/18. Findings: Visualized portions of the inferior thyroid gland appear unremarkable. The mediastinal and hilar vascular structures appear within normal limits. The heart appears within normal limits of size. Sub cm mediastinal/prevascular and axillary lymph nodes, nonspecific. Atherosclerotic calcification of the aorta and branches. No large central or segmental pulmonary embolus evident. No focal consolidation. No pleural effusion. No pneumothorax. No suspicious pulmonary nodules measuring greater than 5 mm. Nonspecific fluid-filled bowel loops within the limited included upper abdomen. Degenerative changes. Impression: No large central or segmental pulmonary embolus identified. No focal consolidation, pleural effusion, or pneumothorax. Nonspecific fluid-filled bowel loops within the limited included upper abdomen. Medical Decision Making Medical Decision Making: cellultis ro dvt. ro acs - ro pe - labs imaigng pending abd sof tno ttp antibitoics given v/q low prob. pain imrpvoed. accepted dr zeng. Disposition - Disposition Disposition: HOSPITALIZED Disposition Time: 14:00 Condition: FAIR - Clinical Impression Clinical Impression: Cellulitis of left leg, Chest pain - Scribe Statement The provider has reviewed the documentation as recorded by the Bentonibe Bertrand Gonzalez Provider Attestation: All medical record entries made by the Scribe were at my direction and personally dictated by me. I have reviewed the chart and agree that the record accurately reflects my personal performance of the history, physical exam, medical decision making, and the department course for this patient. I have also personally directed, reviewed, and agree with the discharge instructions and disposition. Decision To Admit - Pt Status Changed To: Hospital Disposition Of: Inpatient - Admit Certification Admit to Inpatient:: After my assessment, the patient will require hospitalization for at least two midnights. This is because of the severity of symptoms shown, intensity of services needed, and/or the medical risk in this patient being treated as an outpatient. - InPatient: Physician Admission Certification: I certify that this patient requires 2 or more midnights of care for the following reason:: needs iv antibioics - . Bed Request Type: Telemetry Admitting Physician: Corin Joy Patient Diagnosis: Cellulitis of left leg, Chest pain
[2018-04-03 11:37] LABS: LYMPH # 0.7 K/uL (1.0-4.3); LYMPH % 3.9 % (20.0-40.0)
[2018-04-03 11:47] LABS: INR 1.3
[2018-04-03 11:50] LABS: BASO % 0.2 % (0.0-2.0); HEMOGLOBIN 12.9 g/dL (12.0-18.0); MEAN CELL VOLUME 86.7 fL (80.0-94.0); MEAN CORPUSCULAR HEMOGLOBIN 29.1 pg (27.0-31.0); MEAN CORPUSCULAR HGB CONC 33.5 g/dL (33.0-37.0); MEAN PLATELET VOLUME 9.3 fL (7.2-11.7); MONO # 0.4 K/uL (0.0-0.8); NEUT # 16.2 K/uL (1.8-7.0); NEUT % 93.9 % (50.0-75.0); RBC 4.43 Mil/uL (4.40-5.90); RED CELL DISTRIBUTION WIDTH 14.5 % (11.5-14.5)
[2018-04-03 11:55] LABS: ALB/GLOB RATIO 1.1 (1.0-2.1); ALBUMIN 4.4 g/dL (3.5-5.0); BLOOD UREA NITROGEN 27 mg/dL (9-20); CALCIUM 8.9 mg/dl (8.6-10.4); GFR NON-AFRICAN AMERICAN 57; PLATELET COUNT 259 K/uL (130-400); WHITE BLOOD COUNT 17.2 K/uL (4.8-10.8)
[2018-04-03 12:03] LABS: ALT/SGPT 36 U/L (21-72); AST/SGOT 42 U/L (17-59)
[2018-04-03] MEDS ORDERED: Vancomycin 1 GM 1 GM/250 ML BAG IVPB ONE (12:05)
[2018-04-03 12:06] LABS: B-TYPE NATRIURETIC PEPTIDE 407 pg/mL (0-900)
--- NOTE | 2018-04-03 12:15 | RAD ---
Date of service: 04/03/2018 HISTORY: Chest pain COMPARISON: Comparison made with prior chest radiograph 10/30/2017. FINDINGS: LUNGS: Poor inspiration with low lung volumes, crowded bronchovascular markings and mild bibasilar atelectasis. PLEURA: No significant pleural effusion identified, no pneumothorax apparent. CARDIOVASCULAR: No obvious aortic atherosclerotic calcification present.. Heart size is borderline/mildly enlarged. No pulmonary vascular congestion. OSSEOUS STRUCTURES: No significant abnormalities. VISUALIZED UPPER ABDOMEN: Normal. OTHER FINDINGS: None. IMPRESSION: Poor inspiration with low lung volumes, crowded bronchovascular markings and mild bibasilar atelectasis.
[2018-04-03 12:31] LABS: BANDS 18 % (0-2); BASOPHIL 1 % (0-2); LYMPHOCYTE 3 % (20-40); MONOCYTE 4 % (0-10); TOTAL CELLS COUNTED 100
[2018-04-03 12:32] LABS: NEUTROPHIL 74 % (50-75)
[2018-04-03 12:33] LABS: PLATELET ESTIMATE NORMAL (NORMAL)
[2018-04-03] MEDS ORDERED: Sodium Chloride 0.9% 1,000 ML IV ONE (12:34)
[2018-04-03] MEDS ORDERED: Iodixanol 320 MG/ML 100 ML BOTTLE IV ONE (13:27)
--- NOTE | 2018-04-03 14:08 | VASCLAB ---
Date of service: 04/03/2018 PROCEDURE: Lower Extremity Venous Duplex Exam. HISTORY: Leg swelling PRIORS: None. TECHNIQUE: Bilateral common femoral, femoral, popliteal and posterior tibial, peroneal and great saphenous veins were evaluated. Flow was assessed with color Doppler, compressibility, assessment of phasic flow and augmentation response. Report prepared by ULYSSES Mckeon FINDINGS: RIGHT: 1. Common Femoral Vein: 1.1. Compressibility - Fully compressible: Thrombus - None : Flow - Phasic: Augmentation -Normal: Reflux - None. 2. Femoral Vein: 2.1. Compressibility - Fully compressible: Thrombus - None : Flow - Phasic: Augmentation -Normal: Reflux - None. 3. Popliteal Vein: 3.1. Compressibility - Fully compressible: Thrombus - None : Flow - Phasic: Augmentation -Normal: Reflux - None. 4. Posterior Tibial Vein: 4.1. Compressibility - Fully compressible: Thrombus - None: Flow - Phasic: Augmentation -Normal: Reflux - None. 5. Peroneal Vein: 5.1. Compressibility - Fully compressible: Thrombus - None: Flow - Phasic: Augmentation -Normal: Reflux - None. 6. Great Saphenous Vein: 6.1. Compressibility - Fully compressible: Thrombus - None: Flow - Phasic: Augmentation - Normal: Reflux - None. LEFT: 1. Common Femoral Vein: 1.1. Compressibility - Fully compressible: Thrombus - None: Flow - Phasic: Augmentation -Normal: Reflux - None. 2. Femoral Vein: 2.1. Compressibility - Fully compressible: Thrombus - None: Flow - Phasic: Augmentation -Normal: Reflux - None. 3. Popliteal Vein: 3.1. Compressibility - Fully compressible: Thrombus - None : Flow - Phasic: Augmentation -Normal: Reflux - None. 4. Posterior Tibial Vein: 4.1. Compressibility - Fully compressible: Thrombus - None: Flow - Phasic: Augmentation -Normal: Reflux - None. 5. Peroneal Vein: 5.1. Compressibility - Fully compressible: Thrombus - None: Flow - Phasic: Augmentation -Normal: Reflux - None. 6. Great Saphenous Vein: 6.1. Compressibility - Fully compressible: Thrombus - None: Flow - Phasic: Augmentation - Normal: Reflux - None. OTHER FINDINGS: Right: None significant. Left: None significant. IMPRESSION: Right: No evidence of deep or superficial vein thrombosis of the right lower extremity. Normal valve function noted of the right side. Left: No evidence of deep or superficial vein thrombosis of the left lower extremity. Normal valve function noted of the left side.
--- NOTE | 2018-04-03 14:35 | CT ---
Date of service: 04/03/2018 CTA chest PE protocol Indication: sob elevated dimer Technique: Contiguous axial images were obtained through the chest with intravenous contrast enhancement. Sagittal and coronal reconstructions were generated and reviewed. This CT exam was performed using 1 or more of the following dose reduction techniques: Automated exposure control, adjustment of the MAA and/or kV according to patient size, and/or use of iterative reconstruction technique. IV contrast: 100 mL Visipaque 320 IV Radiation dose (DLP): 624.68 MGy-cm. Comparison: Chest x-ray performed 04/03/18 Findings: Visualized portions of the inferior thyroid gland appear unremarkable. The mediastinal and hilar vascular structures appear within normal limits. The heart appears within normal limits of size. Sub cm mediastinal/prevascular and axillary lymph nodes, nonspecific. Atherosclerotic calcification of the aorta and branches. No large central or segmental pulmonary embolus evident. No focal consolidation. No pleural effusion. No pneumothorax. No suspicious pulmonary nodules measuring greater than 5 mm. Nonspecific fluid-filled bowel loops within the limited included upper abdomen. Degenerative changes. Impression: No large central or segmental pulmonary embolus identified. No focal consolidation, pleural effusion, or pneumothorax. Nonspecific fluid-filled bowel loops within the limited included upper abdomen.
--- NOTE | 2018-04-03 16:40 | RAD ---
Date of service: 04/03/2018 PROCEDURE: Radiographs of the left tibia and fibula. HISTORY: cellulitis COMPARISON: None available. TECHNIQUE: Frontal and lateral views obtained. FINDINGS: BONES: No fracture or destructive lesion. JOINT SPACES: Unremarkable. OTHER FINDINGS: Diffuse soft tissue prominence. IMPRESSION: Diffuse soft tissue prominence. No focal demonstrated fracture or dislocation.
[2018-04-03] MEDS ORDERED: Albuterol HFA 90 mcg/actuation (8 g) IH PRN (17:28)
--- NOTE | 2018-04-03 18:32 | CP.PCM.CON ---
History of Present Illness - History of Present Illness History of Present Illness: INFECTIOUS DISEASE CONSULT; HPI; 58-year-old male with history of bronchial asthma, COPD, hep C, hypertension, history of gallbladder stones who comes in complaining of chest pain which began today. Patient underwent chest x-ray which showed low lung volumes and atelectasis. CT of the chest with contrast performed which was unremarkable for pulmonary embolism. Patient was also noted to have a chronic left leg swelling and erythema.patient had leukocytosis of 17.2 with bandemia. Patient denies any fever, chills, shortness of breath, nausea, vomiting. Infectious disease consult requested by PMD for evaluation of left leg cellulitis and erythema. A duplex venous study was unremarkable for DVT. X-ray of the left tibia and fibula showed soft tissue swelling. PATIENT GIVES HISTORY OF BIOPSY OF THE LEFT LOWER EXTREMITY AND REMOVAL OF A ?TUMOR IN 2017. PATIENT ALSO GIVES HISTORY OF HEPATITIS C,FOR WHICH HE RECEIVED TREATMENT FOR 6 MONTHS 2 YEARS AGO AT [facility] HE WAS TOLD HE IS CURED. PER PATIENT,HE STILL HAS CIRRHOSIS OF THE LIVER. PATIENT PRESENTLY ALSO COMPLAINING OF ABDOMINAL PAIN,WITH NAUSEA AND VOMITING X1 PMH: Asthma, COPD, Gall Bladder Disease (GALLSTONES), Hepatitis (C), HTN, Peripheral Edema (LEFT LEG), Pneumonia Denies: Chronic Kidney Disease Other Surgeries: Hx of surgeries. BX LL LEG 2017 - [facility] Procedures DX ULTRASOUND-HEART (07/13/12) Family History: States: [place] (Father at 49 y/o), Diabetes (Mother at 71 y/o) - Social History Hx Tobacco Use: Yes (5 cigarettes per day for 30 years) Hx Alcohol Use: No Hx Substance Use: Yes (heroin) - Immunization History Hx Tetanus Toxoid Vaccination: No Hx Influenza Vaccination: Yes Hx Pneumococcal Vaccination: Yes ALLERGY; NO KNOWN ALLERGIES. Review of Systems - Review of Systems All systems: reviewed and no additional remarkable complaints except (as per HPI) Past Patient History - Infectious Disease Hx of Infectious Diseases: None - Past Medical History & Family History Past Medical History?: Yes - Past Social History Smoking Status: Light Smoker < 10 Cigarettes Daily - CARDIAC Hx Hypertension: Yes Hx Peripheral Edema: Yes (LEFT LEG) - PULMONARY Hx Asthma: Yes Hx Chronic Obstructive Pulmonary Disease (COPD): Yes Hx Pneumonia: Yes - NEUROLOGICAL Hx Neurological Disorder: No - HEENT Hx HEENT Problems: No - RENAL Hx Chronic Kidney Disease: No - ENDOCRINE/METABOLIC Hx Endocrine Disorders: No - HEMATOLOGICAL/ONCOLOGICAL Hx Blood Disorders: Yes Hx Cirrhosis: Yes Hx Hepatitis C: Yes (TX. DONE) - INTEGUMENTARY Hx Dermatological Problems: Yes Hx Cellulitis: Yes (Left leg) - MUSCULOSKELETAL/RHEUMATOLOGICAL Hx Musculoskeletal Disorders: No Hx Falls: No - GASTROINTESTINAL Hx Gall Bladder Disease: Yes (GALLSTONES) - GENITOURINARY/GYNECOLOGICAL Hx Genitourinary Disorders: No - PSYCHIATRIC Hx Substance Use: Yes (heroin) - SURGICAL HISTORY Hx Surgeries: Yes Other/Comment: Biopsy to left lower leg 2017 - ANESTHESIA Hx Anesthesia: Yes Hx Anesthesia Reactions: No Hx Malignant Hyperthermia: No Meds Allergies/Adverse Reactions: Allergies Allergy/AdvReac Type Severity Reaction Status Date / Time No Known Allergies Allergy Verified 04/03/18 10:48 - Medications Medications: Current Medications Acetaminophen (Tylenol 325mg Tab) 650 mg PO Q6 PRN PRN Reason: Pain, moderate (4-7) Last Admin: 04/03/18 17:58 Dose: 650 mg Albuterol (Ventolin Hfa 90 Mcg/Actuation (8 G)) 2 puff IH RQ6 PRN PRN Reason: Shortness of Breath Enalapril Maleate (Vasotec) 10 mg PO DAILY [facility] Enoxaparin Sodium (Lovenox) 40 mg SC DAILY [facility] Clindamycin Phosphate 300 mg/ (Sodium Chloride) 52 mls @ 100 mls/hr IVPB Q6H [facility]; Protocol Ceftriaxone Sodium 1 gm/ (Sodium Chloride) 100 mls @ 100 mls/hr IVPB Q12 [facility]; Protocol Ondansetron HCl (Zofran Inj) 4 mg IVP Q6 PRN PRN Reason: Nausea/Vomiting Last Admin: 04/03/18 17:59 Dose: 4 mg Saccharomyces Boulardii (Florastor) 250 mg PO HS [facility] Physical Exam - Constitutional Appears: No Acute Distress - Head Exam Head Exam: NORMAL INSPECTION - Eye Exam Eye Exam: EOMI, PERRL - ENT Exam ENT Exam: Normal Oropharynx - Neck Exam Neck exam: Positive for: Normal Inspection - Respiratory Exam Respiratory Exam: Clear to Auscultation Bilateral, NORMAL BREATHING PATTERN - Cardiovascular Exam Cardiovascular Exam: Tachycardia, REGULAR RHYTHM, +S1, +S2 - GI/Abdominal Exam GI & Abdominal Exam: Normal Bowel Sounds, Organomegaly, Soft, Tenderness (GENERALIZED.). absent: Distended, Guarding - Extremities Exam Extremities exam: Positive for: pedal edema, pedal pulses present (LT. LEG MILD SWELLING AND WARMTH+VE . NO LOCALIZED TENDERNESS.+ VE ERYTHEMA/CELLULITIS). Negative for: calf tenderness - Neurological Exam Neurological exam: Alert, CN II-XII Intact, Oriented x3, Reflexes Normal - Psychiatric Exam Psychiatric exam: Normal Mood - Skin Skin Exam: Normal Color, Warm Results - Vital Signs Recent Vital Signs: Last Vital Signs Temp 100 F H 04/03/18 18:05 Pulse 92 H 04/03/18 15:14 Resp 22 04/03/18 15:14 BP 114/57 L 04/03/18 15:14 Pulse Ox 94 L 04/03/18 16:25 - Labs Result Diagrams: 04/04/18 07:23 04/04/18 07:23 Labs: Laboratory Results - last 24 hr 04/03/18 04/03/18 04/03/18 11:24 11:24 11:24 WBC 17.2 H D RBC 4.43 Hgb 12.9 Hct 38.4 MCV 86.7 MCH 29.1 MCHC 33.5 RDW 14.5 Plt Count 259 D MPV 9.3 Neut % (Auto) 93.9 H Lymph % (Auto) 3.9 L Dunn % (Auto) 2.0 Eos % (Auto) 0.0 Baso % (Auto) 0.2 Neut # (Auto) 16.2 H Lymph # (Auto) 0.7 L Dunn # (Auto) 0.4 Eos # (Auto) 0.0 Baso # (Auto) 0.0 Neutrophils % (Manual) 74 Band Neutrophils % 18 H* Lymphocytes % (Manual) 3 L Monocytes % (Manual) 4 Basophils % (Manual) 1 Platelet Estimate Normal RBC Morphology Normal PT 14.0 H INR 1.3 APTT 35 H D-Dimer, Quantitative 254 H Sodium 137 Potassium 3.5 L Chloride 101 Carbon Dioxide 24 Anion Gap 16 BUN 27 H Creatinine 1.3 Est GFR ( Amer) > 60 Est GFR (Non-Af Amer) 57 Random Glucose 107 Calcium 8.9 Total Bilirubin 1.1 AST 42 ALT 36 Alkaline Phosphatase 71 Troponin I < 0.0120 NT-Pro-B Natriuret Pep 407 Total Protein 8.3 Albumin 4.4 Globulin 3.9 Albumin/Globulin Ratio 1.1 - Imaging and Cardiology Chest x-ray Status: Report reviewed by me (LOW LUNG VOLUMES . BV CONGESTION) Assessment & Plan (1) Acute chest pain Status: Acute Priority: High (2) Cellulitis of left leg Status: Acute (3) Leg edema Status: Acute (4) Abdominal pain Status: Acute - Assessment and Plan (Free Text) Assessment: PLAN; PANCULTURE DC IV ROCEPHIN 1 G EVERY 12 HOURLY 04/03/18. START iv zOSYN 3.375 EVERY 8 HOURLY iv PIGGYBACK 04/03/18 CONTINUE IV VANCOMYCIN 1GM IVPB Q 12HRLY 04/03/18 ADD IV CLEOCIN 300 MG iv PIGGYBACK EVERY 6 HOURLY 04/03/18. PATIENT GOT 1 DOSE OF VANCOMYCIN 1 G ON ADMISSION IN THE ER 04/03/18. THREE-PHASE BONE SCAN , RULE OUT OSTEOMYELITIS ESR CRP. MRSA SCREEN. CARDIAC WORKUP AND PROGRESS. WILL FOLLOW FROM INFECTIOUS POINT OF VIEW.
[2018-04-03] MEDS: Clindamycin 300 MG in Sodium Chloride 0.9% 50 ML IVPB SCH (19:43)
[2018-04-03 20:57] LABS: CK-MB < 0.22 ng/mL (0.0-3.38)
[2018-04-03 21:01] LABS: VENOUS BLOOD GAS BASE EXCESS 3.6 mmol/L (0.0-2.0); VENOUS BLOOD GAS PCO2 34 mmHg (40-60); VENOUS BLOOD GAS PO2 60 mm/Hg (30-55)
[2018-04-03] MEDS: Piperacill/Tazo 3.375gm in Dex 3.375 GM/50 ML BAG IVPB SCH (21:48)
[2018-04-03] MEDS: Saccharomyces Boulardi 250 mg Cap PO SCH (21:48)
[2018-04-04] MEDS: Vancomycin 1 gm/NS 200 ml 1 GM/200 ML BAG IVPB SCH ×2 (00:07→11:53)
[2018-04-04] MEDS: Clindamycin 300 MG in Sodium Chloride 0.9% 50 ML IVPB SCH ×3 (01:30→14:30)
[2018-04-04] MEDS: Piperacill/Tazo 3.375gm in Dex 3.375 GM/50 ML BAG IVPB SCH ×3 (05:00→20:39)
[2018-04-04] MEDS: Albuterol HFA 90 mcg/actuation (8 g) IH PRN ×2 (05:36→11:49)
[2018-04-04 07:32] LABS: BASO % 0.1 % (0.0-2.0); HEMOGLOBIN 12.5 g/dL (12.0-18.0); LYMPH # 1.4 K/uL (1.0-4.3); LYMPH % 6.6 % (20.0-40.0); MEAN CELL VOLUME 86.5 fL (80.0-94.0); MEAN CORPUSCULAR HEMOGLOBIN 29.1 pg (27.0-31.0); MEAN CORPUSCULAR HGB CONC 33.7 g/dL (33.0-37.0); MEAN PLATELET VOLUME 8.8 fL (7.2-11.7); MONO # 0.8 K/uL (0.0-0.8); MONO % 3.7 % (0.0-10.0); NEUT # 18.5 K/uL (1.8-7.0); NEUT % 89.6 % (50.0-75.0); PLATELET COUNT 210 K/uL (130-400); RED CELL DISTRIBUTION WIDTH 14.8 % (11.5-14.5); WHITE BLOOD COUNT 20.6 K/uL (4.8-10.8)
[2018-04-04 07:42] LABS: CK-MB < 0.22 ng/mL (0.0-3.38)
[2018-04-04 07:53] LABS: ALB/GLOB RATIO 1.1 (1.0-2.1); ALBUMIN 4.3 g/dL (3.5-5.0); ALT/SGPT 32 U/L (21-72); AST/SGOT 25 U/L (17-59); BILIRUBIN,DIRECT 0.5 mg/dL (0.0-0.4); BLOOD UREA NITROGEN 37 mg/dL (9-20); CALCIUM 8.6 mg/dl (8.6-10.4); GFR NON-AFRICAN AMERICAN 42
[2018-04-04 08:33] LABS: ERYTHROCYTE SEDIMENTATION RATE 80 mm/hr (0-15)
[2018-04-04 08:48] LABS: SQUAMOUS EPITHIAL < 1 /hpf (0-5); URINE BILIRUBIN NEGATIVE (NEGATIVE); URINE BLOOD NEGATIVE (NEGATIVE); URINE CLARITY Turbid (Clear); URINE COLOR Yellow (YELLOW); URINE GLUCOSE (UA) NORMAL (Normal); URINE LEUKOCYTE ESTERASE NEG Leu/uL (Negative); URINE PROTEIN 1+ mg/dL (NEGATIVE); URINE URIC ACID CRYSTALS OCC /hpf (<OCC); URINE UROBILINOGEN NORMAL mg/dL (0.2-1.0)
[2018-04-04] MEDS: Enoxaparin 40 mg Syringe SC SCH (09:45)
[2018-04-04 10:26] LABS: BANDS 12 % (0-2); LYMPHOCYTE 8 % (20-40); MONOCYTE 3 % (0-10); NEUTROPHIL 77 % (50-75); TOTAL CELLS COUNTED 100
[2018-04-04 10:41] LABS: PLATELET ESTIMATE NORMAL (NORMAL); TOXIC GRANULATION PRESENT
[2018-04-04] MEDS ORDERED: Potassium Chloride 20 mEq ER Tab PO ONE (10:45)
--- NOTE | 2018-04-04 11:23 | CARD ---
APPROVED REPORT Date of service: 04/03/2018 EKG Measurement Heart [id number] <Conclusion> Sinus tachycardia Otherwise normal ECG
[2018-04-04] MEDS: Potassium Chloride 20 mEq ER Tab PO SCH (17:15)
--- NOTE | 2018-04-04 18:02 | NM ---
Date of service: 04/04/2018 PROCEDURE: Whole Body Bone Scan HISTORY: LEFT LEG R/O OSTIOMYLITIS(HX OF BX LT. LEG ) COMPARISON: None available. TECHNIQUE: Following administration of 21.6 miCu of Tc MDP 3 phase bone scan of the lower extremities was performed from above the knee to the ankle and feet FINDINGS: The blood flow and blood pool images demonstrate diffuse increased blood flow and hyperemia in the left leg extending from the left knee to the left foot suggestive of cellulitis. The delayed images demonstrate no focal significant accumulation of the radiotracer in the left tibia and fibula to suggest osteomyelitis. Degenerative uptake: Degenerative changes are noted at the knee and ankle joints. Other findings: None. IMPRESSION: No scintigraphic evidence of osteomyelitis. Diffuse hyperemia and increased radiotracer accumulation in the soft tissue of the left leg suggestive of cellulitis.
[2018-04-04] MEDS: HYDROmorphone 0.5 mg/0.5 ml ISec IVP PRN (18:48)
--- NOTE | 2018-04-04 20:17 | CP.PCM.PN ---
Subjective - Date & Time of Evaluation Date of Evaluation: 04/04/18 Time of Evaluation: 20:16 - Subjective Subjective: MAXIMUM TEMPERATURE 101.9 BP 130/87 Tachycardic C/O ABDOMINAL PAIN +VE DIARRHEA. LEFT LE WITH ERYTHEMA, WARMTH, EDEMATOUS+VE Objective - Vital Signs/Intake and Output Vital Signs (last 24 hours): Temp Pulse Resp BP Pulse Ox 99.1 F 106 H 20 104/67 97 04/04/18 18:36 04/04/18 15:35 04/04/18 15:35 04/04/18 18:36 04/04/18 15:35 - Medications Medications: Current Medications Acetaminophen (Tylenol 325mg Tab) 650 mg PO Q6 PRN PRN Reason: Pain, moderate (4-7) Last Admin: 04/04/18 17:16 Dose: 650 mg Albuterol (Ventolin Hfa 90 Mcg/Actuation (8 G)) 2 puff IH RQ6 PRN PRN Reason: Shortness of Breath Last Admin: 04/04/18 11:49 Dose: 2 puff Enalapril Maleate (Vasotec) 10 mg PO DAILY [facility] Last Admin: 04/04/18 10:00 Dose: 10 mg Enoxaparin Sodium (Lovenox) 40 mg SC DAILY [facility] Last Admin: 04/04/18 09:45 Dose: 40 mg Hydromorphone HCl (Dilaudid) 0.25 mg IVP Q6H PRN PRN Reason: Pain, severe (8-10) Last Admin: 04/04/18 18:48 Dose: 0.25 mg Vancomycin/Sodium Chloride (Vancomycin 1 Gm/Ns 200 Ml) 1 gm in 200 mls @ 166.7 mls/hr IVPB Q12H [facility]CLUDES [facility]; Protocol Stop: 04/09/18 00:01 Last Admin: 04/04/18 11:53 Dose: 166.7 mls/hr Piperacillin Sod/Tazobactam Sod (Zosyn 3.375 Gm Iv Premix) 3.375 gm in 50 mls @ 100 mls/hr IVPB Q8H [facility]; Protocol Last Admin: 04/04/18 13:55 Dose: 100 mls/hr Ondansetron HCl (Zofran Inj) 4 mg IVP Q6 PRN PRN Reason: Nausea/Vomiting Last Admin: 04/04/18 01:16 Dose: 4 mg Potassium Chloride (K-Dur 20 Meq Er Tab) 20 meq PO DAILY [facility] Stop: 04/06/18 16:01 Last Admin: 04/04/18 17:15 Dose: 20 meq Saccharomyces Boulardii (Florastor) 250 mg PO HS [facility] Last Admin: 04/03/18 21:48 Dose: 250 mg - Labs Labs: 04/04/18 07:23 04/04/18 07:23 PT 14.0 SECONDS (9.7-12.2) H 04/03/18 11:24 INR 1.3 04/03/18 11:24 APTT 35 SECONDS (21-34) H 04/03/18 11:24 - Constitutional Appears: No Acute Distress - Head Exam Head Exam: NORMAL INSPECTION - Eye Exam Eye Exam: EOMI, PERRL - ENT Exam ENT Exam: Normal Oropharynx - Neck Exam Neck Exam: Normal Inspection - Respiratory Exam Respiratory Exam: Decreased Breath Sounds, NORMAL BREATHING PATTERN - Cardiovascular Exam Cardiovascular Exam: Tachycardia, REGULAR RHYTHM, +S1, +S2 - GI/Abdominal Exam GI & Abdominal Exam: Soft, Tenderness (GENERALIZED WITH TENDERNESS SPECIFICALLY EPIGASTRIC/MID ABDOMEN.), Hypoactive Bowel Sounds. absent: Distended, Rebound - Extremities Exam Extremities Exam: Pedal Edema (LEFT LOWER EXTREMITY WITH EXTENSIVE CELLULITIS EXTENDING ALL THE WAY UP TO THE THIGH.), Tenderness. absent: Calf Tenderness - Neurological Exam Neurological Exam: Awake, CN II-XII Intact, Oriented x3 - Psychiatric Exam Psychiatric exam: Normal Mood - Skin Skin Exam: Normal Color Assessment and Plan (1) Cellulitis of left leg Assessment & Plan: three-phase bone scan-consistent with cellulitis and soft tissue swelling. Status: Acute (2) Leg edema Status: Acute (3) Abdominal pain Status: Acute (4) Acute chest pain Status: Acute (5) Cirrhosis of liver Assessment & Plan: history of hepatitis C. Treated for 6 months in the past few years ago. Status: Acute - Assessment and Plan (Free Text) Plan: continue iv zOSYN 3.375 EVERY 8 HOURLY iv PIGGYBACK 04/03/18 CONTINUE IV VANCOMYCIN 1GM IVPB Q 12HRLY 04/03/18 dc IV CLEOCIN 300 MG iv PIGGYBACK EVERY 6 HOURLY 04/03/18 -04/04/18 in view of diarrhea. PATIENT GOT 1 DOSE OF VANCOMYCIN 1 G ON ADMISSION IN THE ER 04/03/18. stools for C. difficile toxin. STOOLS FOR OCCULT [id number] sTOOL CULTURE CT ABDOMEN AND PELVIS WITHOUT CONTRAST R/O COLITIS VS ASCITES/ HEPATOMA. FOLLOW-UP CULTURES TO ADJUST ANTIBIOTICS.
--- NOTE | 2018-04-04 20:59 | CP.PCM.CON ---
History of Present Illness - History of Present Illness History of Present Illness: Jan Serra DO PGY1 - Internal Medicine Program Professional - Cardiology Consult Note for Dr. Vaughan 58M w/ a PMH of Cirrhosis 2/2 Hep C s/p treatment, COPD/asthma, who presnented to [facility] on 04/03 w/ c/o chest pain as well as chronic LLE edema. Patient reports mid sternal tight chest pain x1 day [employer]. Reports pain is a tightness and has associated SOB w/ CP. CP is localized w/ 1 finger to his LSB. Patient denies any stabbing sensation however describes CP as a burning sensation. Reports limited ambulation 2/2 LE pain. LLE symptoms have been chronic for >1month; Does report mild DESIR on exertion. 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 Cardiology consulted for evaluation of CP Review of Systems - Review of Systems All systems: reviewed and no additional remarkable complaints except Review of Systems: as per HPI Past Patient History - Infectious Disease Hx of Infectious Diseases: None - Past Medical History & Family History Past Medical History?: Yes - Past Social History Smoking Status: Light Smoker < 10 Cigarettes Daily - CARDIAC Hx Hypertension: Yes Hx Peripheral Edema: Yes (LEFT LEG) - PULMONARY Hx Asthma: Yes Hx Chronic Obstructive Pulmonary Disease (COPD): Yes Hx Pneumonia: Yes - NEUROLOGICAL Hx Neurological Disorder: No - HEENT Hx HEENT Problems: No - RENAL Hx Chronic Kidney Disease: No - ENDOCRINE/METABOLIC Hx Endocrine Disorders: No - HEMATOLOGICAL/ONCOLOGICAL Hx Blood Disorders: Yes Hx Cirrhosis: Yes Hx Hepatitis C: Yes ([place]. DONE) - INTEGUMENTARY Hx Dermatological Problems: Yes Hx Cellulitis: Yes (Left leg) - MUSCULOSKELETAL/RHEUMATOLOGICAL Hx Musculoskeletal Disorders: No Hx Falls: No - GASTROINTESTINAL Hx Gall Bladder Disease: Yes (GALLSTONES) - GENITOURINARY/GYNECOLOGICAL Hx Genitourinary Disorders: No - PSYCHIATRIC Hx Substance Use: Yes (heroin) - SURGICAL HISTORY Hx Surgeries: Yes Other/Comment: Biopsy to left lower leg 2016 - ANESTHESIA Hx Anesthesia: Yes Hx Anesthesia Reactions: No Hx Malignant Hyperthermia: No Meds Allergies/Adverse Reactions: Allergies Allergy/AdvReac Type Severity Reaction Status Date / Time No Known Allergies Allergy Verified 04/03/18 10:48 - Medications Medications: Current Medications Acetaminophen (Tylenol 325mg Tab) 650 mg PO Q6 PRN PRN Reason: Pain, moderate (4-7) Last Admin: 04/04/18 17:16 Dose: 650 mg Albuterol (Ventolin Hfa 90 Mcg/Actuation (8 G)) 2 puff IH RQ6 PRN PRN Reason: Shortness of Breath Last Admin: 04/04/18 11:49 Dose: 2 puff Enalapril Maleate (Vasotec) 10 mg PO DAILY [facility] Last Admin: 04/04/18 10:00 Dose: 10 mg Enoxaparin Sodium (Lovenox) 40 mg SC DAILY [facility] Last Admin: 04/04/18 09:45 Dose: 40 mg Hydromorphone HCl (Dilaudid) 0.25 mg IVP Q6H PRN PRN Reason: Pain, severe (8-10) Last Admin: 04/04/18 18:48 Dose: 0.25 mg Vancomycin/Sodium Chloride (Vancomycin 1 Gm/Ns 200 Ml) 1 gm in 200 mls @ 166.7 mls/hr IVPB Q12H [facility]; Protocol Stop: 04/09/18 00:01 Last Admin: 04/04/18 11:53 Dose: 166.7 mls/hr Piperacillin Sod/Tazobactam Sod (Zosyn 3.375 Gm Iv Premix) 3.375 gm in 50 mls @ 100 mls/hr IVPB Q8H [facility]; Protocol Last Admin: 04/04/18 20:39 Dose: 100 mls/hr Metronidazole (Flagyl) 500 mg in 100 mls @ 100 mls/hr IVPB Q8H [facility]; Protocol Ondansetron HCl (Zofran Inj) 4 mg IVP Q6 PRN PRN Reason: Nausea/Vomiting Last Admin: 04/04/18 01:16 Dose: 4 mg Potassium Chloride (K-Dur 20 Meq Er Tab) 20 meq PO DAILY [facility] Stop: 04/06/18 16:01 Last Admin: 04/04/18 17:15 Dose: 20 meq Saccharomyces Boulardii (Florastor) 250 mg PO HS [facility] Last Admin: 04/03/18 21:48 Dose: 250 mg Physical Exam - Constitutional Appears: Well, Non-toxic, No Acute Distress - Head Exam Head Exam: ATRAUMATIC, NORMOCEPHALIC - Eye Exam Eye Exam: EOMI, Normal appearance, PERRL - ENT Exam ENT Exam: Mucous Membranes Moist - Respiratory Exam Respiratory Exam: Decreased Breath Sounds, Wheezes - Cardiovascular Exam Cardiovascular Exam: RRR, +S1, +S2. absent: Systolic Murmur - GI/Abdominal Exam GI & Abdominal Exam: Normal Bowel Sounds, Soft. absent: Tenderness - Extremities Exam Additional comments: LLE w/ significant erythema + 3+ pitting edema ; LLE tender to palpation L > R - Neurological Exam Neurological exam: Alert, Oriented x3 - Psychiatric Exam Psychiatric exam: Normal Affect, Normal Mood - Skin Skin Exam: Dry, Normal Color, Warm Results - Vital Signs Recent Vital Signs: Last Vital Signs Temp 99.1 F 04/04/18 18:36 Pulse 106 H 04/04/18 15:35 Resp 20 04/04/18 15:35 BP 104/67 04/04/18 18:36 Pulse Ox 97 04/04/18 15:35 - Labs Result Diagrams: 04/04/18 07:23 04/04/18 07:23 Labs: Laboratory Results - last 24 hr 04/03/18 04/04/18 04/04/18 20:41 03:00 07:23 WBC 20.6 H RBC 4.30 L Hgb 12.5 Hct 37.2 MCV 86.5 MCH 29.1 MCHC 33.7 RDW 14.8 H Plt Count 210 MPV 8.8 Neut % (Auto) 89.6 H Lymph % (Auto) 6.6 L [place] % (Auto) 3.7 Eos % (Auto) 0.0 Baso % (Auto) 0.1 Neut # (Auto) 18.5 H Lymph # (Auto) 1.4 [place] # (Auto) 0.8 Eos # (Auto) 0.0 Baso # (Auto) 0.0 Neutrophils % (Manual) 77 H Band Neutrophils % 12 H* Lymphocytes % (Manual) 8 L Monocytes % (Manual) 3 Toxic Granulation Present Platelet Estimate Normal RBC Morphology Normal ESR 80 H pO2 60 H VBG pH 7.50 H VBG pCO2 34 L VBG HCO3 27.6 VBG Total CO2 27.5 VBG O2 Sat (Calc) 97.2 H VBG Base Excess 3.6 H VBG Potassium 3.5 L Sodium 136.0 Chloride 100.0 Glucose 150 H Lactate 1.6 Potassium Carbon Dioxide Anion Gap BUN Creatinine Est GFR ( Amer) Est GFR (Non-Af Amer) Random Glucose Calcium Total Bilirubin Direct Bilirubin AST ALT Alkaline Phosphatase Total Creatine Kinase 39 L CK-MB (Mass) < 0.22 Troponin I < 0.0120 C-Reactive Protein Total Protein Albumin Globulin Albumin/Globulin Ratio Venous Blood Potassium 3.5 L Urine Color Urine Clarity Urine pH Ur Specific [place] Urine Protein Urine Glucose (UA) Urine Ketones Urine Blood Urine Nitrate Urine Bilirubin Urine Urobilinogen Ur Leukocyte Esterase Urine WBC (Auto) Urine RBC (Auto) Ur Squamous Epith Cells Uric Acid Crystals 04/04/18 04/04/18 07:23 08:37 WBC RBC Hgb Hct MCV MCH MCHC RDW Plt Count MPV Neut % (Auto) Lymph % (Auto) [place] % (Auto) Eos % (Auto) Baso % (Auto) Neut # (Auto) Lymph # (Auto) [place] # (Auto) Eos # (Auto) Baso # (Auto) Neutrophils % (Manual) Band Neutrophils % Lymphocytes % (Manual) Monocytes % (Manual) Toxic Granulation Platelet Estimate RBC Morphology ESR pO2 VBG pH VBG pCO2 VBG HCO3 VBG Total CO2 VBG O2 Sat (Calc) VBG Base Excess VBG Potassium Sodium 136 Chloride 99 Glucose Lactate Potassium 3.0 L Carbon Dioxide 26 Anion Gap 14 BUN 37 H Creatinine 1.7 H Est GFR ( Amer) 51 Est GFR (Non-Af Amer) 42 Random Glucose 150 H D Calcium 8.6 Total Bilirubin 0.7 Direct Bilirubin 0.5 H AST 25 ALT 32 Alkaline Phosphatase 68 Total Creatine Kinase CK-MB (Mass) Troponin I C-Reactive Protein > 90.00 H Total Protein 8.1 Albumin 4.3 Globulin 3.8 Albumin/Globulin Ratio 1.1 Venous Blood Potassium Urine Color Yellow Urine Clarity Turbid Urine pH 5.0 Ur Specific [place] 1.034 H Urine Protein 1+ H Urine Glucose (UA) Normal Urine Ketones Negative Urine Blood Negative Urine Nitrate Negative Urine Bilirubin Negative Urine Urobilinogen Normal Ur Leukocyte Esterase Neg Urine WBC (Auto) 2 Urine RBC (Auto) 1 Ur Squamous Epith Cells < 1 Uric Acid Crystals Occ H Assessment & Plan (1) Cellulitis of left leg Status: Acute (2) Chest pain Status: Acute (3) COPD (chronic obstructive pulmonary disease) Status: Chronic Priority: Medium (4) Lymphedema of left lower extremity Status: Chronic Priority: High - Assessment and Plan (Free Text) Plan: Chest Pain; Atypical in nature however non cardiac in nature C/w ASA, ARB, Tx LLE Cellulitis - chronic lymphedema?
[2018-04-04] MEDS: Saccharomyces Boulardi 250 mg Cap PO SCH (22:15)
[2018-04-04] MEDS: metroNIDAZOLE IV 500 mg/100 ml 500 MG/100 ML BAG IVPB SCH (22:15)
[2018-04-05] MEDS: Vancomycin 1 gm/NS 200 ml 1 GM/200 ML BAG IVPB SCH ×2 (00:47→12:13)
--- NOTE | 2018-04-05 01:13 | HP ---
CHIEF COMPLAINT: Chest pain. HISTORY OF PRESENT ILLNESS: Mr. Fabricio Forbes is a 58-year-old male, came to [facility] Room with chest pain. The patient says that he also has left leg swelling and edema. The patient denies having fever, chills, shortness of breath, nausea or vomiting. Main concern is chest pain and leg pain. Leg pain is so bad sometime according to the patient, 12/20. Even Tylenol and tramadol are not working, I have to give couple of doses of Dilaudid. PAST MEDICAL HISTORY: Asthma; COPD; gallbladder disease; cholelithiasis; hepatitis C; hypertension; peripheral edema, especially left leg; pneumonia; history of surgeries. FAMILY HISTORY: Father at the age of 49 with NE. Mother has diabetes. HABITS: He has five cigarettes per day for 30 years as per the patient. Alcohol, none. Substance abuse, heroin. REVIEW OF SYSTEMS: The patient was seen and examined at bedside. He complained of chest pain and leg pain. Chest pain has almost gone . PHYSICAL EXAMINATION VITAL SIGNS: Temperature 99.1, pulse 106, blood pressure 104/67, respiratory rate 20. HEENT: Head is normocephalic and atraumatic. Eyes, PERRLA. Extraocular muscles are intact. Conjunctivae clear. Nose patent. Mucous membranes moist. NECK: Supple. No carotid bruit. No JVD or thyromegaly. CHEST: Bilaterally symmetrical. HEART: S1 and S2 positive. ABDOMEN: Soft, bowel sounds present. No organomegaly. EXTREMITIES: Left lower extremity is red and warm. Upper both extremities, no edema and no cyanosis. NEUROLOGIC: The patient is awake and alert. Follows simple commands. LABORATORY DATA: White blood cell on admission was 17.2, now repeat is 20.6; hemoglobin 12.5; hematocrit 37.2; platelets 210; neutrophils 12, high. Sodium 136, potassium 3, BUN 37, creatinine 1.3, glucose 150. ASSESSMENT AND PLAN: Mr. Fabricio Forbes is a 58-year-old male with leukocytosis; hypokalemia, we will replace; renal insufficiency; hyperglycemia; C-reactive protein more than 90; proteinuria. Vancomycin level is 13. We admitted the patient, did cardiac enzymes , troponin less than 0.120 x3. Rule out rheumatoid arthritis. Hypokalemia, we will replace. Seen by Infectious Disease, Dr. Rodriguez for cellulitis of the leg. Bone scan was done. Chest pain looks like atypical as per telephone engineer, noncardiac in nature, but continue aspirin and lower extremity cellulitis antibiotics. 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 Tibia and fibula x-ray was done. CAT scan of the chest was done. Seen by Dr. Vladimir Rodriguez. Antibiotics given. Duplex done. X-ray of tibia and fibula showed soft tissue swelling. The patient is very not compliable. The patient has history of asthma, chronic obstructive pulmonary disease, gallbladder disease, hepatitis C positive, hypertension and peripheral edema. Repeat labs. Gastrointestinal and deep venous thrombosis prophylaxis. We will follow up. Corin Joy MD MTDIlana
[2018-04-05] MEDS: Piperacill/Tazo 3.375gm in Dex 3.375 GM/50 ML BAG IVPB SCH ×3 (04:48→21:13)
[2018-04-05] MEDS: metroNIDAZOLE IV 500 mg/100 ml 500 MG/100 ML BAG IVPB SCH ×3 (05:36→21:13)
[2018-04-05] MEDS: HYDROmorphone 0.5 mg/0.5 ml ISec IVP PRN ×2 (05:42→18:16)
[2018-04-05 07:35] LABS: BASO % 0.1 % (0.0-2.0); EOS % 0.1 % (0.0-4.0); HEMOGLOBIN 11.7 g/dL (12.0-18.0); LYMPH # 1.3 K/uL (1.0-4.3); LYMPH % 9.1 % (20.0-40.0); MEAN CELL VOLUME 87.3 fL (80.0-94.0); MEAN CORPUSCULAR HEMOGLOBIN 28.2 pg (27.0-31.0); MEAN CORPUSCULAR HGB CONC 32.3 g/dL (33.0-37.0); MONO # 0.8 K/uL (0.0-0.8); MONO % 5.4 % (0.0-10.0); NEUT % 85.3 % (50.0-75.0); PLATELET COUNT 191 K/uL (130-400); RBC 4.13 Mil/uL (4.40-5.90); WHITE BLOOD COUNT 14.1 K/uL (4.8-10.8)
[2018-04-05 07:40] LABS: BLOOD UREA NITROGEN 32 mg/dL (9-20); CALCIUM 8.3 mg/dl (8.6-10.4); GFR NON-AFRICAN AMERICAN 57; HDL CHOLESTEROL 17 mg/dL (30-70)
[2018-04-05 07:45] LABS: IRON 19 ug/dL (49-181)
[2018-04-05 07:50] LABS: LDL CHOLESTEROL 39 mg/dL (0-129)
[2018-04-05 07:56] LABS: % IRON SATURATION 7 (20-55); TOTAL IRON BINDING CAPACITY 266 ug/dL (250-450)
[2018-04-05 09:31] LABS: BANDS 1 % (0-2); LYMPHOCYTE 6 % (20-40); MONOCYTE 5 % (0-10); NEUTROPHIL 88 % (50-75); PLATELET ESTIMATE NORMAL (NORMAL); TOTAL CELLS COUNTED 100
[2018-04-05 09:32] LABS: HYPOCHROMIC SLIGHT
--- NOTE | 2018-04-05 09:36 | CT ---
PROCEDURE: CT Abdomen and Pelvis without Oral or IV contrast. HISTORY: abdominal pain r/o colitis COMPARISON: CT abdomen and pelvis without IV contrast performed 10/12/17 TECHNIQUE: Contiguous axial images of the abdomen and pelvis. No oral or IV contrast administered. Coronal and Sagittal reformats generated and reviewed. Radiation dose: Total exam DLP = 1262.24 mGy-cm. This CT exam was performed using one or more of the following dose reduction techniques: Automated exposure control, adjustment of the mA and/or kV according to patient size, and/or use of iterative reconstruction technique. FINDINGS: There is limited evaluation of the solid organs without the administration of IV contrast. LOWER THORAX: Bibasilar atelectasis/infiltrates. No visible pleural effusion or pneumothorax. LIVER: Unremarkable unenhanced appearance. GALLBLADDER AND BILE DUCTS: Cholecystectomy. PANCREAS: Unremarkable unenhanced appearance. SPLEEN: Unremarkable unenhanced appearance. ADRENALS: Unremarkable unenhanced appearance. KIDNEYS AND URETERS: No hydronephrosis or obstructing renal calculus. BLADDER: Under distention of the urinary bladder limits evaluation. REPRODUCTIVE: The prostate gland measures approximately 3.7 x 4.5 cm. APPENDIX: The appendix appears within normal limits of caliber. No secondary signs of acute appendicitis. BOWEL: The stomach is nondistended. Lack of oral contrast limits evaluation for bowel pathology. The bowel loops appear within normal limits of caliber without evidence of intestinal obstruction. Fluid-filled loops of small and large bowel suggest diarrheal illness. PERITONEUM: No significant free fluid. No definite free air. LYMPH NODES: Marked left inguinal and left pelvic sidewall adenopathy. For example: 2.3 x 2.8 cm left pelvis (series 3, image 148), and 2.1 cm left inguinal canal. Numerous additional lymph nodes are identified. Surgical clips are noted in the left inguinal region. Sub cm retroperitoneal lymph nodes also evident. VASCULATURE: No aortic aneurysm. BONES: Degenerative changes. OTHER FINDINGS: Small bilateral fat containing inguinal hernias. IMPRESSION: Enlarged adenopathy within the left pelvic sidewall and left inguinal canal regions of unclear etiology. Correlate clinically. Suggest correlation with biopsy if indicated. Sub cm retroperitoneal lymph nodes also evident. Fluid-filled small and large bowel consistent with diarrheal illness. Additional findings as above.
[2018-04-05] MEDS: Potassium Chloride 20 mEq ER Tab PO SCH (09:45)
[2018-04-05] MEDS: Enoxaparin 40 mg Syringe SC SCH (09:46)
--- NOTE | 2018-04-05 14:04 | CP.PCM.PN ---
Subjective - Date & Time of Evaluation Date of Evaluation: 04/05/18 Time of Evaluation: 14:04 - Subjective Subjective: LOW GRADE TEMP. C/O MID -ABDOMINAL PAIN / CHEST PAIN LT. LE +VE CHRONIC EDEMA/AND CELLULITUS +VE DIARRHOEA SEEN BY CARDIOLOGY. LABS ; REVIEWED. STOOL C. DIFFICILE -VE LFTS N CT ABD/PELVIS W/O PO OR IV CONTRAST. +ve left inguinal and left pelvic adenopathy 2.3x 2.8cm +ve surgical clips left inguinal region and subcentimeter retroperitoneal nodes. fluid-filled bowel loops consistent with diarrheal illness. Objective - Vital Signs/Intake and Output Vital Signs (last 24 hours): Temp Pulse Resp BP Pulse Ox 99.0 F 86 20 130/72 97 04/05/18 07:00 04/05/18 09:00 04/05/18 07:00 04/05/18 09:45 04/05/18 07:00 - Medications Medications: Current Medications Acetaminophen (Tylenol 325mg Tab) 650 mg PO Q6 PRN PRN Reason: Pain, moderate (4-7) Last Admin: 04/04/18 17:16 Dose: 650 mg Albuterol (Ventolin Hfa 90 Mcg/Actuation (8 G)) 2 puff IH RQ6 PRN PRN Reason: Shortness of Breath Last Admin: 04/04/18 11:49 Dose: 2 puff Enalapril Maleate (Vasotec) 10 mg PO DAILY [facility] Last Admin: 04/05/18 09:45 Dose: 10 mg Enoxaparin Sodium (Lovenox) 40 mg SC DAILY [facility] Last Admin: 04/05/18 09:46 Dose: 40 mg Hydromorphone HCl (Dilaudid) 0.25 mg IVP Q6H PRN PRN Reason: Pain, severe (8-10) Last Admin: 04/05/18 05:42 Dose: 0.25 mg Vancomycin/Sodium Chloride (Vancomycin 1 Gm/Ns 200 Ml) 1 gm in 200 mls @ 166.7 mls/hr IVPB Q12H [facility]; Protocol Stop: 04/09/18 00:01 Last Admin: 04/05/18 12:13 Dose: 166.7 mls/hr Piperacillin Sod/Tazobactam Sod (Zosyn 3.375 Gm Iv Premix) 3.375 gm in 50 mls @ 100 mls/hr IVPB Q8H [facility]; Protocol Last Admin: 04/05/18 12:10 Dose: 100 mls/hr Metronidazole (Flagyl) 500 mg in 100 mls @ 100 mls/hr IVPB Q8H [facility]; Protocol Last Admin: 04/05/18 12:12 Dose: 100 mls/hr Potassium Chloride (Potassium Chloride 20 Meq/100 Ml) 20 meq in 100 mls @ 50 mls/hr IVPB Q2H [facility] Stop: 04/05/18 15:59 Last Admin: 04/05/18 13:45 Dose: 50 mls/hr Ondansetron HCl (Zofran Inj) 4 mg IVP Q6 PRN PRN Reason: Nausea/Vomiting Last Admin: 04/05/18 00:50 Dose: 4 mg Potassium Chloride (K-Dur 20 Meq Er Tab) 20 meq PO DAILY [facility] Stop: 04/06/18 16:01 Last Admin: 04/05/18 09:45 Dose: 20 meq Saccharomyces Boulardii (Florastor) 250 mg PO HS [facility] Last Admin: 04/04/18 22:15 Dose: 250 mg - Labs Labs: 04/05/18 06:30 04/05/18 06:30 PT 14.0 SECONDS (9.7-12.2) H 04/03/18 11:24 INR 1.3 04/03/18 11:24 APTT 35 SECONDS (21-34) H 04/03/18 11:24 - Constitutional Appears: No Acute Distress - Head Exam Head Exam: NORMAL INSPECTION - Eye Exam Eye Exam: EOMI, PERRL - ENT Exam ENT Exam: Normal Oropharynx - Neck Exam Neck Exam: Normal Inspection - Respiratory Exam Respiratory Exam: Clear to Ausculation Bilateral, NORMAL BREATHING PATTERN - Cardiovascular Exam Cardiovascular Exam: REGULAR RHYTHM, +S1, +S2 - GI/Abdominal Exam GI & Abdominal Exam: Soft, Tenderness (epigastrium/mid abdomen.), Normal Bowel Sounds. absent: Organomegaly - Extremities Exam Extremities Exam: Pedal Edema (left lower extremity with cellulitus LTLE AND CHRONIC LYMPHEDEMA.). absent: Calf Tenderness - Neurological Exam Neurological Exam: Awake, CN II-XII Intact, Oriented x3 - Psychiatric Exam Psychiatric exam: Normal Mood - Skin Skin Exam: Normal Color, Warm Assessment and Plan (1) Cellulitis of left leg Status: Acute (2) Leg edema Status: Acute (3) Abdominal pain Status: Acute (4) Acute chest pain Status: Acute (5) Cirrhosis of liver Status: Acute - Assessment and Plan (Free Text) Plan: PLAN; continue iv zOSYN 3.375 EVERY 8 HOURLY iv PIGGYBACK 04/03/18 CONTINUE IV VANCOMYCIN 1GM IVPB Q 12HRLY 04/03/18 CONTINUE IV FLAGYL 500MG IV Q 8HRLY.04/04/18 CONSIDER SURGERY EVALUATION FOR LYMPHEDEMA/AND LEFT INGUINAL LYMPHADENOPATHY PER CONSULTANTS. DIARRHOEA W/U IN PROGRESS.
[2018-04-05] MEDS: Saccharomyces Boulardi 250 mg Cap PO SCH (21:14)
[2018-04-06] MEDS: Vancomycin 1 gm/NS 200 ml 1 GM/200 ML BAG IVPB SCH ×2 (00:20→12:13)
[2018-04-06] MEDS: HYDROmorphone 0.5 mg/0.5 ml ISec IVP PRN (01:19)
--- NOTE | 2018-04-06 03:26 | PN ---
DATE: 04/05/2018 SUBJECTIVE: The patient is a 58-year-old male. The patient was seen and examined at bedside on 04/05/2018. Looking comfortable. Has sharp pain in the left leg. Left leg is red, warm. No fever. No chills. No hematuria. No hematochezia. No headache. No dizziness. No palpitation. PHYSICAL EXAMINATION: VITAL SIGNS: Temperature 99, pulse 86, respiratory rate 20, blood pressure 130/72, and pulse oxymetry 97. HEENT: Head: Normocephalic and atraumatic. Eyes: PERRLA. Extraocular muscles are intact. Conjunctivae clear. Nose patent. Mucous membranes moist. NECK: Supple. No carotid bruit, JVD, or thyromegaly. CHEST: Bilaterally symmetrical. HEART: S1 and S2 positive. LUNGS: Clear to auscultation. ABDOMEN: Soft. Bowel sounds present. No organomegaly. EXTREMITIES: Left lower extremity is red, warm, tender. Other three extremities, no edema, no cyanosis. NEUROLOGICAL: The patient is awake, alert, follows simple commands. MEDICATIONS: Tylenol, albuterol, enalapril, Lovenox, hydromorphone, vancomycin, Zosyn, Flagyl, potassium, and Zofran. LABORATORY DATA: White blood cells 14.1, hemoglobin 11.7, hematocrit 36.1, platelets 191. Sodium 135, potassium 2.8, BUN 32, calcium 1.3, and glucose 126. ASSESSMENT AND PLAN: Andrei Regalado is a 58-year-old male with leukocytosis; anemia; hypokalemia; renal insufficiency; hyperglycemia; has cellulitis of the left leg, getting antibiotics; leg edema; abdominal pain; acute chest pain; cirrhosis of the liver, getting antibiotics as per Infectious Disease, Dr. Vladimir Rodriguez. Out of bed, physical therapy. Repeat laboratories. According to varnish filterer, the patient has noncardiac atypical chest pain. Consider musculoskeletal in origin. chronic lymphedema. Repeat laboratories. We will follow up. Corin Joy MD [facility]
[2018-04-06] MEDS: Piperacill/Tazo 3.375gm in Dex 3.375 GM/50 ML BAG IVPB SCH ×3 (04:30→21:24)
[2018-04-06] MEDS: metroNIDAZOLE IV 500 mg/100 ml 500 MG/100 ML BAG IVPB SCH ×3 (05:00→21:20)
[2018-04-06 08:36] LABS: BASO % 0.3 % (0.0-2.0); EOS # 0.1 K/uL (0.0-0.7); EOS % 0.7 % (0.0-4.0); HEMOGLOBIN 11.9 g/dL (12.0-18.0); LYMPH # 1.4 K/uL (1.0-4.3); LYMPH % 17.5 % (20.0-40.0); MEAN CELL VOLUME 86.1 fL (80.0-94.0); MEAN CORPUSCULAR HEMOGLOBIN 28.7 pg (27.0-31.0); MEAN CORPUSCULAR HGB CONC 33.3 g/dL (33.0-37.0); MEAN PLATELET VOLUME 8.4 fL (7.2-11.7); MONO # 0.4 K/uL (0.0-0.8); NEUT # 6.1 K/uL (1.8-7.0); NEUT % 76.5 % (50.0-75.0); RBC 4.14 Mil/uL (4.40-5.90); RED CELL DISTRIBUTION WIDTH 14.5 % (11.5-14.5)
[2018-04-06 08:49] LABS: BLOOD UREA NITROGEN 27 mg/dL (9-20); CALCIUM 8.3 mg/dl (8.6-10.4); GFR NON-AFRICAN AMERICAN > 60
[2018-04-06] MEDS: Enoxaparin 40 mg Syringe SC SCH (09:29)
[2018-04-06] MEDS: Potassium Chloride 20 mEq ER Tab PO SCH (09:29)
[2018-04-06] MEDS ORDERED: Potassium Chloride 20 mEq ER Tab PO ONE (16:00)
[2018-04-06 16:26] VITALS: RESP 20
--- NOTE | 2018-04-06 17:42 | CP.PCM.PN ---
Subjective - Date & Time of Evaluation Date of Evaluation: 04/06/18 Time of Evaluation: 17:42 - Subjective Subjective: alert and orientedx3, no acute pain or distress. Objective - Vital Signs/Intake and Output Vital Signs (last 24 hours): Temp Pulse Resp BP Pulse Ox 97.7 F 77 20 128/76 96 04/06/18 16:00 04/06/18 16:00 04/06/18 16:00 04/06/18 16:00 04/06/18 16:00 Intake and Output: 04/06/18 04/06/18 06:59 18:59 Intake Total 720 Output Total 300 Balance 420 - Medications Medications: Current Medications Acetaminophen (Tylenol 325mg Tab) 650 mg PO Q6 PRN PRN Reason: Pain, moderate (4-7) Last Admin: 04/06/18 09:30 Dose: 650 mg Albuterol (Ventolin Hfa 90 Mcg/Actuation (8 G)) 2 puff IH RQ6 PRN PRN Reason: Shortness of Breath Last Admin: 04/04/18 11:49 Dose: 2 puff Enalapril Maleate (Vasotec) 10 mg PO DAILY [facility] Last Admin: 04/06/18 09:26 Dose: 10 mg Enoxaparin Sodium (Lovenox) 40 mg SC DAILY [facility] Last Admin: 04/06/18 09:29 Dose: 40 mg Furosemide (Lasix) 20 mg PO DAILY [facility] Hydromorphone HCl (Dilaudid) 0.25 mg IVP Q6H PRN PRN Reason: Pain, severe (8-10) Last Admin: 04/06/18 01:19 Dose: 0.25 mg Vancomycin/Sodium Chloride (Vancomycin 1 Gm/Ns 200 Ml) 1 gm in 200 mls @ 166.7 mls/hr IVPB Q12H [facility]; Protocol Stop: 04/09/18 00:01 Last Admin: 04/06/18 12:13 Dose: 166.7 mls/hr Piperacillin Sod/Tazobactam Sod (Zosyn 3.375 Gm Iv Premix) 3.375 gm in 50 mls @ 100 mls/hr IVPB Q8H [facility]; Protocol Last Admin: 04/06/18 12:05 Dose: 100 mls/hr Metronidazole (Flagyl) 500 mg in 100 mls @ 100 mls/hr IVPB Q8H [facility]; Protocol Last Admin: 04/06/18 12:12 Dose: 100 mls/hr Ondansetron HCl (Zofran Inj) 4 mg IVP Q6 PRN PRN Reason: Nausea/Vomiting Last Admin: 04/06/18 01:24 Dose: 4 mg Potassium Chloride (K-Dur 20 Meq Er Tab) 20 meq PO DAILY [facility] Saccharomyces Boulardii (Florastor) 250 mg PO HS [facility] Last Admin: 04/05/18 21:14 Dose: 250 mg - Labs Labs: 04/06/18 08:29 04/06/18 08:29 PT 14.0 SECONDS (9.7-12.2) H 04/03/18 11:24 INR 1.3 04/03/18 11:24 APTT 35 SECONDS (21-34) H 04/03/18 11:24 Assessment and Plan - Assessment and Plan (Free Text) Assessment: patient admitted with left leg pain and swelling seen and examined. Alert and orientedx3, pain and swelling is improving. Bone scan is negative for osteomyelitis. Discussed with DR Joy and DR Rodriguez, plan to discharge home in am on po keflex for 1 week. Also will try lasix and potassium for 1 week. Advised to follow up with PMD in 1 week.
[2018-04-06] MEDS: Saccharomyces Boulardi 250 mg Cap PO SCH (21:19)
--- NOTE | 2018-04-06 23:00 | CP.PCM.PN ---
Subjective - Date & Time of Evaluation Date of Evaluation: 04/06/18 Time of Evaluation: 23:00 - Subjective Subjective: AFEBRILE , FEELING BETTER. LT. LE MUCH IMPROVED . DECREASED CELLULITIS DEC EDEMA. 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 PLAN OK TO SWITCH TO PO KEFLEX 500MG PO TID X7 DAYS IN AM PT HAS SOME REACTIVE LN LT GROIN /PELVIS. PT EXPLAINED TO F/U WITH HIS PMD OPD IF DO NOT RESOLVE . Objective - Vital Signs/Intake and Output Vital Signs (last 24 hours): Temp Pulse Resp BP Pulse Ox 97.7 F 77 20 125/69 96 04/06/18 16:00 04/06/18 16:00 04/06/18 16:00 04/06/18 19:53 04/06/18 16:00 Intake and Output: 04/06/18 04/07/18 18:59 06:59 Intake Total 720 Output Total 300 Balance 420 - Medications Medications: Current Medications Acetaminophen (Tylenol 325mg Tab) 650 mg PO Q6 PRN PRN Reason: Pain, moderate (4-7) Last Admin: 04/06/18 09:30 Dose: 650 mg Albuterol (Ventolin Hfa 90 Mcg/Actuation (8 G)) 2 puff IH RQ6 PRN PRN Reason: Shortness of Breath Last Admin: 04/04/18 11:49 Dose: 2 puff Enalapril Maleate (Vasotec) 10 mg PO DAILY [facility] Last Admin: 04/06/18 09:26 Dose: 10 mg Enoxaparin Sodium (Lovenox) 40 mg SC DAILY [facility] Last Admin: 04/06/18 09:29 Dose: 40 mg Furosemide (Lasix) 20 mg PO DAILY [facility] Hydromorphone HCl (Dilaudid) 0.25 mg IVP Q6H PRN PRN Reason: Pain, severe (8-10) Last Admin: 04/06/18 01:19 Dose: 0.25 mg Vancomycin/Sodium Chloride (Vancomycin 1 Gm/Ns 200 Ml) 1 gm in 200 mls @ 166.7 mls/hr IVPB Q12H [facility]; Protocol Stop: 04/09/18 00:01 Last Admin: 04/06/18 12:13 Dose: 166.7 mls/hr Piperacillin Sod/Tazobactam Sod (Zosyn 3.375 Gm Iv Premix) 3.375 gm in 50 mls @ 100 mls/hr IVPB Q8H [facility]; Protocol Last Admin: 04/06/18 21:24 Dose: 100 mls/hr Metronidazole (Flagyl) 500 mg in 100 mls @ 100 mls/hr IVPB Q8H [facility]; Protocol Last Admin: 04/06/18 21:20 Dose: 100 mls/hr Ondansetron HCl (Zofran Inj) 4 mg IVP Q6 PRN PRN Reason: Nausea/Vomiting Last Admin: 04/06/18 01:24 Dose: 4 mg Potassium Chloride (K-Dur 20 Meq Er Tab) 20 meq PO DAILY [facility] Saccharomyces Boulardii (Florastor) 250 mg PO HS [facility] Last Admin: 04/06/18 21:19 Dose: 250 mg - Labs Labs: 04/06/18 08:29 04/06/18 08:29 PT 14.0 SECONDS (9.7-12.2) H 04/03/18 11:24 INR 1.3 04/03/18 11:24 APTT 35 SECONDS (21-34) H 04/03/18 11:24 - Constitutional Appears: No Acute Distress - Head Exam Head Exam: NORMAL INSPECTION - Eye Exam Eye Exam: EOMI, PERRL - ENT Exam ENT Exam: Normal Oropharynx - Neck Exam Neck Exam: Normal Inspection - Respiratory Exam Respiratory Exam: NORMAL BREATHING PATTERN - Cardiovascular Exam Cardiovascular Exam: REGULAR RHYTHM, +S1, +S2 - GI/Abdominal Exam GI & Abdominal Exam: Soft, Normal Bowel Sounds - Extremities Exam Extremities Exam: Pedal Edema (IMPROVING. DECREASED CELLULITIS LT LE.). absent: Calf Tenderness - Neurological Exam Neurological Exam: Awake, CN II-XII Intact, Normal Gait, Oriented x3 - Psychiatric Exam Psychiatric exam: Normal Mood - Skin Skin Exam: Normal Color, Warm Assessment and Plan (1) Cellulitis of left leg Status: Acute (2) Leg edema Status: Acute (3) Abdominal pain Status: Acute (4) Acute chest pain Status: Acute (5) Cirrhosis of liver Status: Acute
[2018-04-07] MEDS: HYDROmorphone 0.5 mg/0.5 ml ISec IVP PRN (00:42)
[2018-04-07] MEDS: Vancomycin 1 gm/NS 200 ml 1 GM/200 ML BAG IVPB SCH (00:45)
[2018-04-07] MEDS: Piperacill/Tazo 3.375gm in Dex 3.375 GM/50 ML BAG IVPB SCH (04:20)
[2018-04-07] MEDS: metroNIDAZOLE IV 500 mg/100 ml 500 MG/100 ML BAG IVPB SCH (05:10)
--- NOTE | 2018-04-07 05:11 | PN ---
DATE: 04/06/2018 SUBJECTIVE: The patient is a 58-year-old male. The patient was seen and examined at the bedside on 04/06/2018, looking comfortable. No fever or chills. No hematuria or hematochezia. No headache or dizziness. No chest pain or palpitation. Seen by Infectious Disease, getting antibiotics. PHYSICAL EXAMINATION: VITAL SIGNS: Temperature 97.7, pulse 77, respiratory rate 20, blood pressure 120/69, pulse oximetry 96%. HEENT: Head: Normocephalic and atraumatic. Eyes: PERRLA. Extraocular muscles intact. Conjunctivae clear. Nose patent. Mucous membranes are moist. NECK: Supple. No carotid bruits. No JVD or thyromegaly. CHEST: Bilaterally symmetrical. HEART: S1 and S2 positive. LUNGS: Clear to auscultation. ABDOMEN: Soft. Bowel sounds present. No organomegaly. EXTREMITIES: No edema. No cyanosis. NEUROLOGIC: The patient is awake and alert. Moving all four extremities. No focal deficits. MEDICATIONS: Tylenol, albuterol, Vasotec, Lovenox, Lasix, vancomycin, tazobactam, Flagyl, Zofran, potassium. LABORATORY DATA: White blood cells 8, hemoglobin 11.9, hematocrit 35.3, platelets 184. Sodium 137, potassium 3.2, BUN 27, creatinine 1, glucose 107. ASSESSMENT AND PLAN: Mr. Fabricio Forbes is a 58-year-old male with anemia, hypokalemia, renal insufficiency; has cellulitis of the leg, improved; leg edema, improved; abdominal pain, got better; chest pain, better after eating. We will repeat labs. We will follow up. Corin Joy MD
[2018-04-07 09:13] VITALS: PULSE 70; TEMP 97.5; O2SAT 96
[2018-04-07] MEDS: Enoxaparin 40 mg Syringe SC SCH (09:34)
[2018-04-07 09:36] VITALS: BP 138/74
[2018-04-07] MEDS ORDERED: Potassium Chloride 20 mEq ER Tab PO SCH (10:00)
[2018-04-07] MEDS ORDERED: Potassium Chloride 20 mEq ER Tab PO ONE (11:15)
== END 2018-04-07 12:25 | disposition home or self-care (01) | DRG 277 ==
LOC: C.ER 10:30 → C.6T 14:41
PROVIDERS: ADMIT Internal Medicine; ATTEND Internal Medicine
DX: L03.116 Cellulitis of left lower limb (principal); E87.6 Hypokalemia; B19.20 Unspecified viral hepatitis C without hepatic coma; K74.60 Unspecified cirrhosis of liver; J44.9 Chronic obstructive pulmonary disease, unspecified; D72.825 Bandemia; I10 Essential (primary) hypertension; D64.9 Anemia, unspecified; N28.9 Disorder of kidney and ureter, unspecified; F17.210 Nicotine dependence, cigarettes, uncomplicated